=== PATIENT | female | born 1980 | race Two or more races ===

== ENCOUNTER 2020-11-21 06:54 | Emergency (ER) | payer MEDICAID, SELFPAY ==
[2020-11-21 07:01] VITALS: BP 131/81; PULSE 121; RESP 20; TEMP 36.1; O2SAT 97; BMI 37.5
[2020-11-21 08:17] VITALS: BP 106/72; PULSE 95; RESP 17; O2SAT 98
--- NOTE | 2020-11-21 08:38 | ED_ITS ---
HPI - Ear Problem General Chief complaint: Headache Stated complaint: Can't hear from left ear since Tues Time Seen by Provider: 11/21/20 08:05 Source: patient and family Mode of arrival: ambulatory Limitations: language barrier (Lebanese-speaking) History of Present Illness MD Complaint: decreased hearing Location: left ear Duration: constant Severity: severe Relieving factors: nothing Exacerbating factors: nothing Discharge from ear: no Treatment prior to arrival: attempt at ear wax removal Related Data Allergies Allergy/AdvReac Type Severity Reaction Status Date / Time No Known Allergies Allergy Verified 11/21/20 07:04 [No Known Allergies*] Review of Systems Review of Systems: Constitutional : No Fever, No Chills, No fatigue, No Malaise ENT/Mouth : Positive decreased hearing to left ear/cerumen impaction, no ear drainage, No sore throat, No runny nose Eyes: No Discharge Cardiovascular : No Chest Pain, No SOB Respiratory : No Cough, No Sputum, No Wheezing, No Smoke Exposure, No Dyspnea Gastrointestinal : No Nausea, No Vomiting, No Diarrhea Genitourinary : No irregular bleeding, No Dysuria, No Urinary Frequency, No Hematuria, No Urinary Incontinence, No Urgency, No Flank Pain, Musculoskeletal : No Myalgia Skin : No rash Neuro : No Headache Yes all other systems are reviewed and are negative REPLACED BY [facility] Past Medical History Attestation statement: The following information was validated with the patient. Social History Social History Alcohol intake: never Patient Tobacco Use Status: Current everyday Tobacco user Use of substances other than those prescribed or required for medical reasons: No Advance Directives: No Advance Directives Information Provided: No Patient : No Physical Exam Vital Signs: Vital Signs: Last Vital Signs Temp 97 F 11/21/20 07:01 Pulse 95 11/21/20 08:17 Resp 17 11/21/20 08:17 BP 106/72 11/21/20 08:17 Pulse Ox 98 11/21/20 08:17 Body Mass Index 37.5 vital signs have been reviewed as normal and appeared to be correct. Blood pressure normal. Heart rate normal. Respiration rate normal. Temperature normal. Oxygen saturation normal. Appearance: Alert. Oriented X3. No acute distress. Head: Normal external exam. Normocephalic. Atraumatic. Eyes: PERRLA. EOMI. Conjunctiva and sclera normal. Eyelids normal. ENT: To bilateral ear canals patient has moderate cerumen impaction. No tender to palpation to bilateral pinna or tragus. Pharynx normal. Uvula midline. Moist mucous membranes. Neck: Normal inspection. Neck supple. FROM. No adenopathy. No meningeal signs. No neck mass noted. CVS: Normal heart rate and rhythm. Respiratory: No respiratory distress. Painless inspiration. Back: Full range of motion noted. No rashes/lesion/induration/fluctuance or signs of infection noted. Skin: Skin warm and dry. Normal skin color. Normal skin turgor. No rashes/lesions/lacerations noted. Extremities: Extremities exhibit normal range of motion. Neuro: Oriented X 3. No motor deficit. No sensory deficit. Reflexes normal. Normal steady gait. No focal neuro deficits noted. Course Course Course Narrative: Patient is now status post bilateral cerumen impaction no complications. Moderate cerumen was removed. Patient reports her hearing is back to normal. Will DC with instructions to return if any new or worsening symptoms and to follow up with PCP. Patient understands agrees with this plan. Procedures Ear Wax Removal Both Ears: Cerumenolytic Used: other (Peroxide) Results: Re-examined: cerumen removed completely TM Examination: TM(s) intact, normal appearance Ear Canal Exam: atraumatic Patient Tolerated Procedure: well Complications: no problems Technique: ear canal irrigated [facility] - Ear Medical Records Attestation: I reviewed the patient's medical records. Discharge Plan Discharge Clinical Impression: Cerumen impaction Patient Disposition: Home, Self-Care Instructions: Carbamide Peroxide (Into the ear) Referrals: Luis Barker [Physician] - 2 days (As needed) Print Language: Lebanese
== END 2020-11-21 09:00 | disposition home or self-care (01) ==
PROVIDERS: Emergency Provider Emergency Medicine
DX: H61.23 Impacted cerumen, bilateral (principal)
CPT/HCPCS: 69209; 99283; 99284

== ENCOUNTER 2022-12-26 08:41 | Emergency (ER) | payer MEDICAID, SELFPAY ==
[2022-12-26 08:59] VITALS: BP 122/64; PULSE 101; RESP 18; TEMP 36.3; O2SAT 96; BMI 35.2
--- NOTE | 2022-12-26 09:49 | ED_ITS ---
HPI - Eye Problem General Chief complaint: Eye Problems Stated complaint: itchy swollen eyes Time Seen by Provider: 12/26/22 09:48 Source: patient and RN notes reviewed Mode of arrival: ambulatory Limitations: no limitations History of Present Illness HPI Narrative: This is a 42-year-old female presenting to the emergency department for evaluation of bump to right lower eyelid x1 year. She states that this bump has remained unchanged over the last year. She has not been seen for this lesion in the past. Patient reports that the area is itching and is bothering her. She has had no changes in her vision, fevers, chills, redness to her eye. She does not have a eye doctor. Denies any other complaints or concerns at this time. Related Data Allergies Allergy/AdvReac Type Severity Reaction Status Date / Time No Known Allergies Allergy Verified 11/21/20 07:04 [No Known Allergies*] [facility] Social History Social History Alcohol intake: never Patient Tobacco Use Status: Current everyday Tobacco user Advance Directives: No Advance Directives Information Provided: No Physical Exam Vital Signs: Vital Signs: Last Vital Signs Temp 97.4 F 12/26/22 08:59 Pulse 101 H 12/26/22 08:59 Resp 18 12/26/22 08:59 BP 122/64 12/26/22 08:59 Pulse Ox 96 12/26/22 08:59 O2 Del Method Room Air 12/26/22 08:59 BMI result Body Mass Index 35.2 General: Awake, alert, and oriented X3. No acute distress. HEENT: see below CVS: Normal heart rate and rhythm. Pulses normal. Respiratory: No respiratory distress Skin: Warm, dry, no rashes noted to exposed skin. Normal skin color. Normal skin turgor. Extremities: Normal to inspection Neuro: Oriented X 3. No motor deficit. No sensory deficit. Eyes: Other: Small, 1 mm lesion noted to the right lower eyelid, medial aspect, mildly tender to palpation. No periorbital cellulitis. No orbital bony tenderness. Conjunctivae: conjunctivae normal Sclerae: sclerae normal Pupils: Equal, round and reactive pupils present EOM: EOMs intact bilaterally Neuro: Cranial nerves: Yes Equal, round and reactive pupils present Medical Decision Making Medical Decision Making MDM Narrative: 42-year-old female presenting to the emergency department for evaluation bump to right lower eyelid x1 year. No changes, just has not been evaluated for this. On arrival, patient vital signs within normal limits, mildly tachycardic at 101bpm, patient has no chest pain or shortness of breath was asymptomatic. On examination, patient has lesion to right lower eyelid. Given patient has had no vision changes, erythema to the conjunctiva noninjected, no periorbital cellulitis noted - no further diagnostic imaging or laboratory workup needed. PERRL, and EOMI intact. Patient's symptoms consistent with lesion to right lower eyelid, given referral to eye physician for further workup and management. Patient understands and agrees with plan. Patient given return precautions if any new or worsening symptoms occur. Patient understands with treatment plan. Patient stable for discharge Differential Diagnosis Differential Diagnoses: The differential diagnosis associated with the presentation includes Hordeolum, stye, periorbital cellulitis, lesion Discharge Plan Discharge Clinical Impression: Lesion of right lower eyelid Patient Disposition: Home, Self-Care Additional Instructions: You have a skin growth on your right lower eyelid. This needs to be treated at an eye doctor. Please call Dr. Messina on Wednesday for an appointment. If any new or worsening symptoms occur including but not limited to blurred vision, redness of the eye, fevers, chills, or any other new or worsening symptoms please return for re-evaluation. Referrals: Sonu Messina [Physician] - Interventions: ED Discharge Assessment Last Done: 12/26/22 10:38 Discharge Date/Time: 12/26/22 10:38
== END 2022-12-26 10:38 | disposition home or self-care (01) ==
PROVIDERS: Emergency Provider Student in an Organized Health Care Education/Training Program
DX: H02.9 Unspecified disorder of eyelid (principal); F17.200 Nicotine dependence, unspecified, uncomplicated
CPT/HCPCS: 99282

== ENCOUNTER 2024-01-13 04:17 | Inpatient (IN) | payer MEDICAID, SELFPAY ==
[2024-01-13] VITALS (11 sets, daily range): BP systolic 96–128; BP diastolic 54–84; PULSE 95–150; RESP 11–20; TEMP 36.2–37.7; O2SAT 94–98; BMI 35.4
--- NOTE | ~2024-01-13 | MR_ITS ---
EXAMINATION: MR BRAIN WITH AND WITHOUT CONTRAST CLINICAL INFORMATION: New onset seizure COMPARISON: None. TECHNIQUE: MRI of the brain was obtained using routine sequences before and following administration of intravenous contrast. A total of 10 mL of Gadavist was administered intravenously. FINDINGS: Dedicated coronal oblique imaging through the temporal lobes are slightly motion degraded however reveal symmetric appearance of the bilateral hippocampi with normal morphology and signal intensity. No evidence of mesial temporal sclerosis. No identifiable malformation of cortical development. No acute infarct. The GRE sequence is without susceptibility artifact to suggest acute or chronic blood products. No extra-axial fluid collection. The ventricles and sulci are normal in size and configuration without significant volume loss or hydrocephalus. A few nonspecific punctate T2 FLAIR hyperintense foci within the periatrial white matter. No abnormal intraparenchymal or leptomeningeal enhancement. No significant mass effect or herniation pattern. The intracranial dural venous sinus and arterial flow voids are preserved. Partially empty sella. The orbits are grossly unremarkable. Opacified left frontal sinus containing T1 hyperintense contents presumably reflecting chronic proteinaceous/inspissated secretions. Moderate patchy mucosal disease throughout the ethmoid air cells and moderate polypoid mucosal disease in the right maxillary sinus alveolar recess. No mastoid effusion. Reduced T1 marrow signal throughout the calvarium and imaged cervical spinal column. Reduced T1 marrow signal in the left mandibular alveolus presumably reflecting reactive osteitis associated with a mandibular molar demonstrating periodontal disease. MR/MR head/brain wo/w con IMPRESSION: 1. No structural epileptogenic focus identified within limitations of a slightly motion degraded 1.5 [place] examination. No pathologic intracranial 2. enhancement. 3. Reduced T1 marrow signal throughout the calvarium and imaged cervical spinal column, nonspecific but can be seen in the setting of anemia or other marrow infiltrative process neck and be correlated with CBC. 4. Paranasal sinus disease as above including proteinaceous opacification of the left frontal sinus and moderate mucosal disease in the ethmoid air cells and right maxillary sinus alveolar recess. 5. Reduced T1 marrow signal in the left mandibular alveolus presumably reflecting reactive osteitis associated with a mandibular molar demonstrating periodontal disease.
--- NOTE | ~2024-01-13 | XR_ITS ---
EXAMINATION: XR CHEST CLINICAL INFORMATION: Seizure COMPARISON: None available. TECHNIQUE: Frontal view of the chest was obtained. FINDINGS: No focal consolidation. Slight elevation right hemidiaphragm. No pneumothorax. Trachea is midline. Cardiac mediastinal silhouette is not enlarged. No large pleural effusion. Osseous structures are intact. Soft tissues are unremarkable. XR/XR chest 1V IMPRESSION: 1. No acute cardiopulmonary process. 2. Slight elevation right hemidiaphragm.
--- NOTE | ~2024-01-13 | CT_ITS ---
EXAMINATION: CT HEAD WITHOUT CONTRAST CLINICAL INFORMATION: Headache. Seizure. COMPARISON: No relevant prior imaging. TECHNIQUE: Contiguous axial imaging was performed from the skull base to vertex without intravenous administration of contrast. This CT examination was performed using dose optimization techniques as appropriate, variously including the following: *Automated exposure control *Adjustment of mA and/or kV according to patient size (this includes techniques or standardized protocols for targeted exams where dose is matched to indication/reason for exam; i.e. extremities or head) *Use of iterative reconstruction technique DLP: 702 mGy-cm FINDINGS: There is no acute intracranial hemorrhage or abnormal extra-axial collection. No intracranial mass effect or midline shift. Lateral and third ventricles are normal. No hydrocephalus. Salter-white matter differentiation is preserved and there is no evidence of acute territorial infarct. The calvarium and skull base are intact. Mastoid air cells and middle ear cavities are well aerated. Mild to moderate paranasal sinus disease partially visualized within the ethmoid air cells and maxillary sinuses. Globes and orbits are grossly symmetric. CT/CT head/brain wo IV con IMPRESSION: Unremarkable CT scan of the head. No evidence of acute territorial infarct or hemorrhage.
[2024-01-13 04:44] LABS: Basophils Absolute Auto 0.1 X10*3/uL (0.0-0.2); Basophils Percent Auto 0.5 % (0-2); Eosinophils Absolute Auto 0.2 X10*3/uL (0.0-0.4); Eosinophils Percent Auto 1.5 % (0-4); Hemoglobin 13.7 g/dl (12.0-16.0); Imm Gran Abs Auto 0.17 X10*3/uL (0.00-0.03); Imm Gran Pct Auto 1.6 % (0.0-0.4); Lymphocytes Absolute Auto 3.7 X10*3/uL (1.2-4.9); Lymphocytes Percent Auto 34.8 % (20-40); MANUAL DIFF FLAG NO; Mean Corpuscular HGB Conc 35.1 g/dl (31.0-35.0); Mean Corpuscular Hemoglobin 31.9 pg (27.0-33.0); Mean Corpuscular Volume 90.7 fL (80.0-98.0); Mean Platelet Volume 9.1 fL (9.4-12.3); Monocytes Absolute Auto 0.6 X10*3/uL (0.1-1.2); Neutrophils Absolute Auto 5.8 x10*3/uL (2.0-8.3); Neutrophils Percent Auto 55.6 % (45-73); Platelet Count 291 X10*3/uL (160-400); Red Cell Distribution Width 12.1 % (11.0-16.0); White Blood Count 10.5 X10*3/uL (4.8-10.8)
[2024-01-13 05:00] LABS: Alanine Aminotransferase 10 U/L (0-31); Albumin Level 4.3 g/dL (3.5-5.0); Alkaline Phosphatase 67 U/L (39-117); Anion Gap 17 (12-20); Aspartate Amino Transferase 12 U/L (5-31); Bilirubin Total 0.3 mg/dL (0.0-1.0); Blood Urea Nitrogen 18 mg/dL (9-16); Calcium 8.8 mg/dL (8.4-10.2); Carbon Dioxide 19 mmol/L (22-29); Chloride 104 mmol/L (96-108); Creatinine Clr Calc Pharmacy 100.6; Estimated Glomerular Filt Rate > 60; Glucose Random 216 mg/dL (60-115); Potassium 4.5 mmol/L (3.3-5.1); Sodium 135 mmol/L (135-145); Total Protein 7.4 g/dL (6.5-8.0)
[2024-01-13 06:44] LABS: Appearance Urine Clear; Color Urine Yellow; Glucose Urine UA 500 mg/dL (Negative); Leukocyte Esterase Urine Small (1+) (Negative); Nitrite Urine Negative (Negative); PH 5.5 (5.0-9.0); UMIC TRIGGER UACC YES; Urine Blood Negative (Negative); Urine Ketones 15 mg/dL (Negative); Urine Protein Negative (Neg-Trace)
[2024-01-13 06:46] LABS: Bacteria Urine Trace (None Seen); Hyaline Casts Urine 0-2 /LPF (0-2); RBC Urine 0-2 /HPF (0-2); UACC Culture Trigger YES
--- NOTE | 2024-01-13 06:54 | ED.SEIZURE ---
HPI - Seizure General Chief Complaint: Seizure Stated Complaint: seizure? AMS Time Seen by Provider: 01/13/24 06:32 Source: patient, family, RN notes reviewed and old records reviewed Mode of arrival: EMS Limitations: language barrier History of Present Illness ED Provider: Singh Corona PA-C HPI Narrative: 44 year old female with PMH of diabetes brought in by EMS s/p witnessed ?seizure by this AM while in bed lasting about 30 seconds w/tongue biting & described post ictal state. reports patient having whole body shaking, denies head strike. Patient herself does not remember incident, however reports suspected similar instance a few months ago when was found on ground, however never sought medical care. Patient endorses left temporal headache x awhile, & headache today is similar to prior. Patient denies seizure aura or personal hx of seizures however reports mother with history of seizures. Denies taking AC. Denies CP, SOB, nausea, vomiting, diarrhea, abdominal pain, fevers, incontinence, dysuria, recent illness. Admits to drinking 2 beers a day, and will sometimes begin drinking at 10am, does report hx of withdrawal, but denies known withdrawal seizure. States has not had a drink in 2 weeks. Denies drug use besides marijuana occasionally. MD complaint: seizure and possible seizure Onset (ago): hour(s) (1) Description of Episode: loss of consciousness and tonic-clonic movement Duration of episode: 30 -: second(s) Witnessed: Yes - by Bystander () Related Data Allergies Allergy/AdvReac Type Severity Reaction Status Date / Time No Known Allergies Allergy Verified 01/13/24 04:31 [No Known Allergies*] Review of Systems Review of Systems: Constitutional: No Fever, No Chills ENT/Mouth: +tongue pain, No Ear Pain, No Nasal Congestion, No sore throat, No Rhinorrhea, No Swallowing Difficulty Cardiovascular: No Chest Pain, No SOB Respiratory: No Cough, No Sputum, No Wheezing Gastrointestinal: No Nausea, No Vomiting, No Diarrhea, No Constipation, No Abdominal pain Genitourinary: No Dysuria, No Urinary Frequency, No Hematuria, No Urinary Incontinence/retention, No Flank Pain Musculoskeletal: No joint pain, No Myalgias, No Joint Swelling Skin: No Skin Lesions, No rash Neuro: No Weakness, No Numbness, No Paresthesias, +BRANDON Yes all other systems are reviewed and are negative Constitutional: Constitutional: Reports as per HPI Neurologic: Comments: loss of consciousness during possible seizure [facility] Past Medical History Attestation statement: The following information was validated with the patient. Source: old records reviewed Social History Social History Alcohol intake: never Patient Tobacco Use Status: Current everyday Tobacco user Smoked in Last 30 Days: Yes Use of substances other than those prescribed or required for medical reasons: No Advance Directives: No Advance Directives Information Provided: Yes Do you have a plan to hurt others: No Plan Patient : No Physical Exam Vital Signs: Vital Signs: Last Vital Signs Temp 97.9 F 01/13/24 06:00 Pulse 114 H 01/13/24 06:00 Resp 14 01/13/24 06:00 BP 111/70 01/13/24 06:00 Pulse Ox 97 01/13/24 06:00 O2 Del Method Room Air 01/13/24 06:00 BMI result Body Mass Index 35.4 Const: General: cooperative, healthy appearing and no acute distress Orientation/consciousness: patient oriented x3 Limitations: no limitations HEENT: Head: Yes normal to inspection and Yes atraumatic Ears: hearing grossly normal bilaterally General nose exam: Normal external nose present Face and sinus: Yes normal facial exam Mouth: no muffled voice and tongue abnormal (+ bite daniel to right side of tongue) Throat: Yes posterior oropharynx normal and Yes tonsils normal Eyes: General: appearance normal, both eyes and all related structures Pupils: Equal, round and reactive pupils present EOM: EOMs intact bilaterally Neck: Neck: Yes normal visual inspection and Yes no meningeal signs Resp: Effort & Inspection: normal respiratory effort and no respiratory distress Auscultation: clear to auscultation bilaterally and no wheezes Cardio: Rate: regular rate Heart sounds: S1 normal heart sound present and S2 normal heart sound present Peripheral pulses: Peripheral pulses 2+ throughout GI: Inspection: Yes normal to inspection Palpation (GI): Soft to palpation, nontender, no guarding and not rigid : General: Yes no CVA tenderness Back/Spine/Pelvis: Back: no CVA tenderness Skin: Rashes: no rashes Wounds: no wounds Neuro: General: patient oriented x3, tone normal, moves all extremities, no meningeal signs and CN's II-XI intact bilaterally Cranial nerves: Yes CN's II-XII intact bilaterally, Yes Facial sensation intact/muscles of mastication intact, Yes Equal, round and reactive pupils present, Yes Midline tongue present, Yes Ability to bilaterally rotate head present and Yes Ability to bilaterally elevate shoulders present Cognition (Neuro): normal cognition Gait exam (Neuro): Normal gait present Motor exam (neuro): 5/5 motor strength present throughout, no tremor noted, Normal motor muscle tone present throughout and Motor abnormalities not present Sensory Exam: Normal double simultaneous stimulation for sensation Extrem: General: Yes normal to inspection Psych: Appearance: grossly normal Mental Status: mental status grossly normal Speech and movement: Normal speech and movement present Affect: normal affect Attitude: cooperative Thought process: Normal thought process present Thought content: Normal thought content present Insight: Good insight present (Psych) Judgement: Fair judgement present (Psych) Course Course Course Narrative: -labs reassuring -UA infected > will give p.o. Macrobid -ethanol negative 43--CT head/brain wo IV con IMPRESSION: Unremarkable CT scan of the head. No evidence of acute territorial infarct or hemorrhage. > plan is for admission Medications Administered Discontinued Medications Generic Name Dose Route Start Last Admin Trade Name Freq PRN Reason Stop Dose Admin Lorazepam 2 mg 01/13/24 07:12 01/13/24 07:28 Lorazepam 1 Mg Tablet PO 01/13/24 07:13 2 mg ONCE ONE Administration Nitrofurantoin Macrocrystals 100 mg 01/13/24 08:28 01/13/24 08:58 Nitrofurantoin Monohyd/M-Cryst 100 Mg Capsule PO 01/13/24 08:29 100 mg ONCE ONE Administration Medical Decision Making Medical Decision Making [facility] Narrative: 44 year old female with PMH of diabetes brought in by EMS s/p witnessed ?seizure by this AM while in bed lasting about 30 seconds w/tongue biting & described post ictal state. On exam tachycardic, NAD, A&O x3, back at baseline per , no evidence of trauma, bite rushing appreciated to right side of tongue. No focal neuro deficits. Concern for seizure, suspected 2nd incident vs ETOH withdrawal seizure. Rule out infectious etiology vs substance abuse. Rule out IC pathology. Low suspicion for meningitis/encephalitis Plan: EKG, labs, UA, tox screen, head CT, CXR, p.o. Ativan, re-evaluate Please refer to course for remaining medical decision making, conversation with family/patient and labs/imaging interpretation Differential Diagnosis Differential Diagnoses: The differential diagnosis associated with the presentation includes Seizure, alcohol withdrawal seizure, stroke, brain mass/tumor, hypoglycemia, Meningitis, Encephalitis Admission/Observation Consideration of admission/observation: Escalation of care including admission/observation considered Lab Data MDM Lab Attestation statement: I reviewed the patient's lab results. 01/13/24 04:39 01/13/24 04:40 Labs: Lab Results 01/13/24 01/13/24 01/13/24 Range/Units 04:39 04:40 06:35 WBC 10.5 (4.8-10.8) X10*3/uL RBC 4.30 (4.20-5.50) X10*6/uL Hgb 13.7 (12.0-16.0) g/dl Hct 39.0 (37.0-47.0) % MCV 90.7 (80.0-98.0) fL MCH 31.9 (27.0-33.0) pg MCHC 35.1 H (31.0-35.0) g/dl RDW 12.1 (11.0-16.0) % Plt Count 291 (160-400) X10*3/uL MPV 9.1 L (9.4-12.3) fL Immature Gran % (Auto) 1.6 H (0.0-0.4) % Neut % (Auto) 55.6 (45-73) % Lymph % (Auto) 34.8 (20-40) % Trigg % (Auto) 6.0 (2-11) % Eos % (Auto) 1.5 (0-4) % Baso % (Auto) 0.5 (0-2) % Lymph # (Auto) 3.7 (1.2-4.9) X10*3/uL Trigg # (Auto) 0.6 (0.1-1.2) X10*3/uL Eos # (Auto) 0.2 (0.0-0.4) X10*3/uL Baso # (Auto) 0.1 (0.0-0.2) X10*3/uL Abs Immat Gran (auto) 0.17 H (0.00-0.03) X10*3/uL Absolute Neuts (auto) 5.8 (2.0-8.3) x10*3/uL Absolute Nucleated RBC 0.000 (0.0-0.012) X10*3/uL Nucleated RBC % (auto) 0.0 (0.0-0.2) /100WBC Sodium 135 (135-145) mmol/L Potassium 4.5 (3.3-5.1) mmol/L Chloride 104 (96-108) mmol/L Carbon Dioxide 19 L (22-29) mmol/L Anion Gap 17 (12-20) BUN 18 H (9-16) mg/dL Creatinine 0.75 (0.5-1.4) mg/dL Estim Creat Clear Calc 100.6 Estimated GFR > 60 Random Glucose 216 H (60-115) mg/dL Calcium 8.8 (8.4-10.2) mg/dL Magnesium 1.8 (1.6-2.6) mg/dL Total Bilirubin 0.3 (0.0-1.0) mg/dL AST 12 (5-31) U/L ALT 10 (0-31) U/L Alkaline Phosphatase 67 (39-117) U/L Total Protein 7.4 (6.5-8.0) g/dL Albumin 4.3 (3.5-5.0) g/dL Beta HCG, Quant < 2 mIU/mL Urine Color Yellow Urine Appearance Clear Urine pH 5.5 (5.0-9.0) Ur Specific Garden 1.020 (1.005-1.025) Urine Protein Negative (Neg-Trace) mg/dL Urine Glucose (UA) 500 H (Negative) mg/dL Urine Ketones 15 (Negative) mg/dL Urine Blood Negative (Negative) Urine Nitrite Negative (Negative) Ur Leukocyte Esterase Small (1+) H (Negative) Urine RBC 0-2 (0-2) /HPF Urine WBC 11-20 H (0-5) /HPF Ur Squamous Epith Cells 3-5 (0-2) /HPF Urine Bacteria Trace (None Seen) Hyaline Casts 0-2 (0-2) /LPF Ethyl Alcohol < 10 mg/dL Independent Interpretation I performed an independent interpretation of an: EKG, Plain X-Ray and CT Scan Radiology Impression Discussion of test interpretation with radiology: I have reviewed the radiologist's reading. Independent Historian Clinical information obtained from an independent historian. History obtained from or confirmed by: Spouse and EMS External Record Review External record reviewed: Inpatient record, Office record, Outpatient record, Prior outpatient labs, Prior outpatient radiology, Primary care record and Outside ED record Tests considered The following testing was considered but not selected: As above Prescription Management I considered prescription management with: Other Chronic Conditions Patient?s care impacted by: Other Discharge Plan Discharge Clinical Impression: UTI (urinary tract infection) Patient Disposition: Still a Patient Print Language: Upper Sorbian
[2024-01-13 07:19] LABS: Ethanol < 10 mg/dL; Magnesium 1.8 mg/dL (1.6-2.6)
--- NOTE | 2024-01-13 07:22 | MHC.EDTECH ---
This tech use blankets to create padding on bedside for seizure precautions, per RN request.
[2024-01-13] MEDS: LORazepam 1 MG TABLET 2 MG PO (07:28)
[2024-01-13 07:30] LABS: HCG Quantitative < 2 mIU/mL
--- NOTE | 2024-01-13 08:27 | ECG_ITS ---
Test Reason : seizure Blood Pressure : / mmHG Vent. Rate : 122 BPM Atrial Rate : 122 BPM P-R Int : 124 ms QRS Dur : 072 ms QT Int : 296 ms P-R-T Axes : 000 170 166 degrees QTc Int : 421 ms Sinus tachycardia Right axis deviation Cannot rule out Anterior infarct , age undetermined Abnormal ECG No previous ECGs available Referred By: Tammy Corona Electronically Signed By:CECILIA MAGDALENO
--- NOTE | 2024-01-13 08:47 | ECG_ITS ---
Test Reason : repeat Blood Pressure : / mmHG Vent. Rate : 126 BPM Atrial Rate : 126 BPM P-R Int : 130 ms QRS Dur : 074 ms QT Int : 298 ms P-R-T Axes : 028 014 024 degrees QTc Int : 431 ms Sinus tachycardia Cannot rule out Anterior infarct (cited on or before 13-JAN-2024) Abnormal ECG When compared with ECG of 13-JAN-2024 08:40, QRS axis Shifted left Referred By: Tammy Corona Electronically Signed By:CECILIA MAGDALENO
[2024-01-13] MEDS: Nitrofurantoin Monohyd/M-Cryst 100 MG CAPSULE PO ×2 (08:58→20:57)
--- NOTE | 2024-01-13 10:56 | ECG_ITS ---
Test Reason : tachycardia Blood Pressure : / mmHG Vent. Rate : 130 BPM Atrial Rate : 130 BPM P-R Int : 124 ms QRS Dur : 072 ms QT Int : 292 ms P-R-T Axes : 033 013 016 degrees QTc Int : 429 ms Sinus tachycardia Cannot rule out Anterior infarct (cited on or before 13-JAN-2024) Abnormal ECG When compared with ECG of 13-JAN-2024 08:50, No significant change was found Referred By: Tammy Corona Electronically Signed By:REBECCA BARNETT
--- NOTE | 2024-01-13 10:59 | PC.NURSE ---
Provider notified of elevated HR and temp
[2024-01-13] MEDS: LORazepam 1 MG TABLET PO (11:02)
[2024-01-13 11:09] LABS: Amphetamine Screen Urine Not Detected (Not Detect); Barbiturates, Urine Not Detected (Not Detect); Benzodiazepines Screen Urine Not Detected (Not Detect); Buprenorphine Scr Not Detected (Not Detect); Cannabinoid Screen Urine POSITIVE (Not Detect); Cocaine Screen Urine Not Detected (Not Detect); Fentanyl, urine Not Detected (Not Detect); Methadone Screen, Urine Not Detected (Not Detect); Opiate Screen Urine Not Detected (Not Detect); Oxycodone Screen Urine Not Detected (Not Detect); Phencyclidine Screen Urine Not Detected (Not Detect)
--- NOTE | 2024-01-13 11:16 | PHA.MEDREC ---
Addendum entered by Ted Lam RPh 01/13/24 11:23: Reviewed by [facility] Original Note: Pharmacy Consult ? Medication Reconciliation Pharmacy has completed the medication reconciliation. Patient verified she is not taking any medications OTC or Dr. prescribed at home.
--- NOTE | 2024-01-13 11:24 | P.HPHOSP_ITS ---
History of Present Illness Date of Service: 01/13/24 Attending physician on admission: Richard Shine Chief Complaint: ?Seizure Pt is a 44-year-old female with a PMH significant for [id number] diabetes type 2?and HTN no longer on home medications though has not seen a PCP in 5+ years who presents to the ED for evaluation of witnessed seizure-like activity early this morning. Patient was reportedly sleeping in bed when noticed her whole body was shaking that lasted approximately 30 seconds. Had some blood out of mouth after a tongue bite, and also reports postictal- like state with confusion, difficulty speaking, and slowness to respond. Patient herself does not remember this incident and complains of tongue pain and frontal headache. States her eyes are ?tired? and her vision has also blurry. Reports had a similar incident 8 months ago when she was walking around her apartment and her partner later found her on the floor with a similar postictal like state and with tongue bite. Patient herself does not remember that episode either and did not seek medical attention at that time. In the ED there was concern of possible alcohol withdrawal seizure, but patient does not report consistent heavy alcohol use. Reports last drink 2 weeks ago when she had to nips. Denies history of alcohol withdrawal or alcohol withdrawal seizures. Patient denies family history of seizures, but notes her mother had 2 strokes. Reports previously diagnosed with diabetes and hypertension, but is no longer on home medications and has not seen a PCP for 5+ years. Patient denies increased anxiety, auditory or visual hallucinations. No nausea, vomiting. Denies chest pain/pressure, palpitations. No fever, chills. Denies abdominal pain. In the ED pt was tachycardic up to 127, vitals otherwise stable and WNL. Labs were significant for elevated glucose of 216, otherwise grossly unremarkable and baseline for patient. No leukocytosis. Stable H&H. No significant electrolyte abnormalities. Renal and hepatic function WNL. UA Likely negative for UTI. Tox screen positive for marijuana, otherwise negative. Ethyl alcohol levels undetectable. CXR showed no acute cardiopulmonary process. CT?of head unremarkable with no evidence of acute territorial infarct or hemorrhage. Initial EKG demonstrated sinus tachycardia without significant ST elevations or depressions with repeats x2 similar. Pt was treated with lorazepam, Macrobid and started phenobarb protocol. Pt will be admitted to the hospital for treatment and further evaluation of likely new onset seizures. Review of Systems 2 Review of Systems: New onset seizure Tongue bite Headache Blurriness of vision Denies increased anxiety No auditory, visual, or tactile disturbances Denies nausea, vomiting No fever, chills, abdominal pain Denies chest pain/pressure, palpitations No shortness a breath or difficulty breathing [facility] Medical History (Updated 01/13/24 @ 13:39 by JULISSA Chaney) Diet-controlled type 2 diabetes mellitus HTN (hypertension) Social History Alcohol intake: never Patient Tobacco Use Status: Current everyday Tobacco user Smoked in Last 30 Days: Yes Use of substances other than those prescribed or required for medical reasons: No Advance Directives: No Advance Directives Information Provided: Yes Do you have a plan to hurt others: No Plan Patient : No Meds Allergies Allergy/AdvReac Type Severity Reaction Status Date / Time No Known Allergies Allergy Verified 01/13/24 04:31 [No Known Allergies*] Active Medications: Current Medications Pharmacy Consult (Consult Rx Etoh Phenob Im/Po) 1 each MISCELLANE ONCE PRN; Protocol PRN Reason: Consult order Phenobarbital (Phenobarbital 15 Mg Tablet) 45 mg PO BID [facility], 1928[facility]1983; Protocol Stop: 01/15/24 21:01 Phenobarbital (Phenobarbital 30 Mg Tablet) 30 mg PO BID [facility]LY [facility], 1928[facility]1983; Protocol Stop: 01/17/24 21:01 Phenobarbital (Phenobarbital 30 Mg Tablet) 30 mg PO DAILY [facility], 1928[facility]1983; Protocol Stop: 01/19/24 09:01 Phenobarbital Sodium (Phenobarbital Sodium 130 Mg/Ml Im Once) 160 mg IM ONCE ONE; Protocol Stop: 01/13/24 12:01 Phenobarbital Sodium (Phenobarbital Sodium 130 Mg/Ml Vial Im Q3hx2) 120 mg IM Q3H [place]; Protocol Stop: 01/13/24 18:01 Home Medications ?Medication ?Instructions ?Recorded ?Confirmed ?Last Taken ?Type No Known Home Meds 01/13/24 01/13/24 Unknown History Physical Exam 2 Vital Signs and Narrative: Vital Signs: Last Vital Signs Temp 99.8 F 01/13/24 10:57 Pulse 127 H 01/13/24 10:57 Resp 18 01/13/24 10:57 BP 112/75 01/13/24 10:57 Pulse Ox 98 01/13/24 10:57 O2 Del Method Room Air 01/13/24 10:57 BMI result Body Mass Index 35.4 Constitutional: Alert, in no acute distress. Mental Status: Oriented to person, place and time. Eyes: Pupils are equal, round, and reactive to light. Ear, Nose, and Throat: Oropharynx clear, mucous membranes moist. Bite rsuhing on right side of tongue. Ears and nose without deformities. Trachea midline. Respiratory: Clear to auscultation bilaterally. No wheezing, rales, or rhonchi. Cardiovascular: S1, S2 regular, tachycardic. No murmurs, rubs, or gallops. Gastrointestinal: Abdomen soft, non-tender, non-distended. Normal bowel sounds. Neurologic: Right eye fails to track laterally. Moves all extremities spontaneously. Preserved sensation to light touch of face, upper and lower extremities bilaterally. Preserved and symmetric strength of upper and lower extremities bilaterally. Skin: Warm, dry. Extremities: No edema. Psychiatric: Normal mood and affect. Results Labs 01/13/24 04:39 01/13/24 04:40 Labs: Laboratory Results - last 24 hr 01/13/24 01/13/24 01/13/24 04:39 04:40 06:35 MCV 90.7 MCH 31.9 MCHC 35.1 H RDW 12.1 Plt Count 291 MPV 9.1 L Immature Gran % (Auto) 1.6 H Neut % (Auto) 55.6 Lymph % (Auto) 34.8 [place] % (Auto) 6.0 Eos % (Auto) 1.5 Baso % (Auto) 0.5 Lymph # (Auto) 3.7 [place] # (Auto) 0.6 Eos # (Auto) 0.2 Baso # (Auto) 0.1 Abs Immat Gran (auto) 0.17 H Absolute Neuts (auto) 5.8 Absolute Nucleated RBC 0.000 Nucleated RBC % (auto) 0.0 Anion Gap 17 Estim Creat Clear Calc 100.6 Estimated GFR > 60 Random Glucose 216 H Calcium 8.8 Magnesium 1.8 Total Bilirubin 0.3 AST 12 ALT 10 Alkaline Phosphatase 67 Total Protein 7.4 Albumin 4.3 Beta HCG, Quant < 2 Urine Color Yellow Urine Appearance Clear Urine pH 5.5 Ur Specific [place] 1.020 Urine Protein Negative Urine Glucose (UA) 500 H Urine Ketones 15 Urine Blood Negative Urine Nitrite Negative Ur Leukocyte Esterase Small (1+) H Urine RBC 0-2 Urine WBC 11-20 H Ur Squamous Epith Cells 3-5 Urine Bacteria Trace Hyaline Casts 0-2 Urine Opiates Screen Ur Buprenorphine Scrn Ur Oxycodone Screen Urine Methadone Screen Urine Fentanyl Screen Ur Barbiturates Screen Ur Phencyclidine Scrn Ur Amphetamines Screen U Benzodiazepines Scrn Urine Cocaine Screen U Marijuana (THC) Screen Ethyl Alcohol < 10 01/13/24 10:51 MCV MCH MCHC RDW Plt Count MPV Immature Gran % (Auto) Neut % (Auto) Lymph % (Auto) [place] % (Auto) Eos % (Auto) Baso % (Auto) Lymph # (Auto) [place] # (Auto) Eos # (Auto) Baso # (Auto) Abs Immat Gran (auto) Absolute Neuts (auto) Absolute Nucleated RBC Nucleated RBC % (auto) Anion Gap Estim Creat Clear Calc Estimated GFR Random Glucose Calcium Magnesium Total Bilirubin AST ALT Alkaline Phosphatase Total Protein Albumin Beta HCG, Quant Urine Color Urine Appearance Urine pH Ur Specific [place] Urine Protein Urine Glucose (UA) Urine Ketones Urine Blood Urine Nitrite Ur Leukocyte Esterase Urine RBC Urine WBC Ur Squamous Epith Cells Urine Bacteria Hyaline Casts Urine Opiates Screen Not Detected Ur Buprenorphine Scrn Not Detected Ur Oxycodone Screen Not Detected Urine Methadone Screen Not Detected Urine Fentanyl Screen Not Detected Ur Barbiturates Screen Not Detected Ur Phencyclidine Scrn Not Detected Ur Amphetamines Screen Not Detected U Benzodiazepines Scrn Not Detected Urine Cocaine Screen Not Detected U Marijuana (THC) Screen POSITIVE H Ethyl Alcohol Imaging Radiologist's Impressions: Impressions Head CT 01/13/24 08:00 IMPRESSION: Unremarkable CT scan of the head. No evidence of acute territorial infarct or hemorrhage. Chest X-Ray 01/13/24 08:34 IMPRESSION: 1. No acute cardiopulmonary process. 2. Slight elevation right hemidiaphragm. Assessment and Plan (1) Seizure: Status: Acute Plan Pt is a 44-year-old female with a PMH significant for [id number] diabetes type 2?and HTN no longer on home medications though has not seen a PCP in 5+ years who presents to the ED for evaluation of witnessed seizure-like activity early this morning. Pt will be admitted to the hospital for treatment and further evaluation of likely new onset seizures. Question of new onset seizures Pt with episode of witnessed whole-body shaking and postictal state One known prior episode [address] of head negative for acute territorial infarct of hemorrhage Physical exam reveals right eye not tracking laterally No electrolyte abnormalities, tox screen only positive for marijuana Will get MRI of head/brain wo/w contrast EEG Neurology consult Seizure precautions Monitor on telemetry Tachycardia Patient with elevated heart rate as high as 127 Unclear etiology, though chart review indicates similar tachycardia in 2020 Will check TSH Monitor on telemetry Alochol use In the ED there was a question of possible alcohol withdrawal and patient was started on phenobarb protocol Patient admits to only intermittent alcohol use, last drank 2 nips 2 weeks ago Will hold off on continuing phenobarb protocol at this time Monitor on CIWA Question of UTI UA positive for leukocyte esterase with wbc's 11-20, squamous epithelial cells 3-5, and trace bacteria Patient was started on Macrobid in the ED Will continue Macrobid until urine cultures finalized Fall urine culture Diet-controlled type 2 diabetes Reports no longer on prescription medications Random glucose 216 at time of presentation Will check A1c Diabetic diet Full Code Attending:?Dr. Shine DVT Prophylaxis: Lovenox Pt will require a hospitalization of at least two nights for treatment of?likely new onset seizures. Patient will require additional imaging of head and brain including MRI and EEG, close monitoring of cardiac function, and specialist consultation with Neurology. Quality Stroke Does the patient have a stroke diagnosis?: No VTE Prior VTE?: No VTE Risk Level:: Medical - moderate - high VTE Device Contraindication: Treatment Not Indicated VTE Drug Contraindication: N/A - Med Ordered
[2024-01-13] MEDS: PHENobarbitaL sodium 130 MG/ML IM ONCE 160 MG IM (12:06)
[2024-01-13 12:38] LABS: Glucose, Whole Blood 118 mg/dL (60-115)
[2024-01-13 12:43] LABS: Estimated Average Glucose 111 mg/dL; Hemoglobin A1c % 5.5 % (<6.0)
--- NOTE | 2024-01-13 13:03 | PC.NURSE ---
Observed to have elevated HR on monitor, upon entering room HR in 160`s - patient standing to use bedside commode stating she is dizzy. Returned to bed, patient states this has not happened before today. BP 123/66. Provider notified
[2024-01-13 13:09] LABS: TSH reflex Free T4 1.93 uIU/mL (0.32-4.0)
--- NOTE | 2024-01-13 13:53 | PC.NURSE ---
MRI screening form completed with patient via business analyst consultant
--- NOTE | 2024-01-13 15:30 | PC.NURSE ---
Alert and oriented, denies pain or discomfort. Remains tachy in 120's -130`s, provider aware.
[2024-01-13] MEDS: Acetaminophen 325 MG TABLET 650 MG PO (15:32)
--- NOTE | 2024-01-13 15:38 | PC.NURSE ---
With movement in bed HR 140- provider aware
--- NOTE | 2024-01-13 15:46 | P.CNNE_ITS ---
History of Present Illness Data of Consult Service Date: 01/13/24 Primary Care Provider: Unknown Physician HPI Reason for consult: Seizure 44 years old woman with diabetes came to hospital after she was found having generalized convulsion during sleep. Apparently she bit her tongue and had some blood coming out of mouth. In emergency room she was confused and did not know what had happened. When I saw her, she said that it had happened 1 time before few months ago at home and she did not seek any medical attention. Review of Systems 2 Review of Systems: No recent trauma or cold or flu-like illness PMFSH Past Medical History Medical History (Updated 01/13/24 @ 13:39 by JULISSA Chaney) Diet-controlled type 2 diabetes mellitus HTN (hypertension) Social History Social History Alcohol intake: never Patient Tobacco Use Status: Current everyday Tobacco user Smoked in Last 30 Days: Yes Use of substances other than those prescribed or required for medical reasons: No Advance Directives: No Advance Directives Information Provided: Yes Do you have a plan to hurt others: No Plan Patient : No Meds Allergies Allergy/AdvReac Type Severity Reaction Status Date / Time No Known Allergies Allergy Verified 01/13/24 04:31 [No Known Allergies*] Active Medications: Current Medications Acetaminophen (Acetaminophen 325 Mg Tablet) 650 mg PO Q6H PRN PRN Reason: Pain, Mild (Pain Scale 1-3), fever or headache Last Admin: 01/13/24 15:32 Dose: 650 mg Benzonatate (Benzonatate 100 Mg Capsule) 100 mg PO TID PRN PRN Reason: Cough Calcium Carbonate (Calcium Carbonate 750 Mg Tab.Chew) 750 mg PO Q4H PRN PRN Reason: Heartburn Enoxaparin Sodium (Enoxaparin Sodium 40 Mg/0.4 Ml Syringe) 40 mg SUBCUT Q24H [place] Last Admin: 01/13/24 13:11 Dose: Not Given Sodium Chloride (Ns) 1,000 mls @ 100 mls/hr IVCONT .Q10H [place] Magnesium Hydroxide (Milk Of Magnesia 30 Ml Oral.Susp) 30 ml PO DAILY PRN PRN Reason: Constipation Melatonin (Melatonin 3 Mg Tablet) 6 mg PO BEDTIME PRN PRN Reason: Insomnia Nitrofurantoin Macrocrystals (Nitrofurantoin Monohyd/M-Cryst 100 Mg Capsule) 100 mg PO Q12H [place] Ondansetron HCl (Ondansetron Hcl 4 Mg/2 Ml Vial) 4 mg IVPUSH Q8H PRN PRN Reason: Nausea and Vomiting Pharmacy Consult (Consult Rx Etoh Phenob Im/Po) 1 each MISCELLANE ONCE PRN; Protocol PRN Reason: Consult order Sodium Chloride (0.9 % Sodium Chloride Flush 3 Ml Syringe) 3 ml IVFLUSH QSHIFT [place] Home Medications ?Medication ?Instructions ?Recorded ?Confirmed ?Last Taken ?Type No Known Home Meds 01/13/24 01/13/24 Unknown History Physical Exam 2 Vital Signs: Vital Signs: Last Vital Signs Temp 99.9 F 01/13/24 15:30 Pulse 140 H 01/13/24 15:38 Resp 18 01/13/24 15:30 BP 106/69 01/13/24 15:30 Pulse Ox 98 01/13/24 15:30 O2 Del Method Room Air 01/13/24 12:23 BMI result Body Mass Index 35.4 Neuro: Other: She was alert and awake with normal spontaneity of speech fluency comprehension and affect. Face was symmetrical. Visual pierce are full. There was no focal weakness. Plantars are flexor. Results Labs 01/13/24 04:39 01/13/24 04:40 Labs: Short CBC 01/13/24 Range/Units 04:39 WBC 10.5 (4.8-10.8) X10*3/uL Hgb 13.7 (12.0-16.0) g/dl Hct 39.0 (37.0-47.0) % Plt Count 291 (160-400) X10*3/uL BMP 01/13/24 04:40 Sodium 135 Potassium 4.5 Chloride 104 Carbon Dioxide 19 L BUN 18 H Creatinine 0.75 Calcium 8.8 Liver Function 01/13/24 Range/Units 04:40 Total Bilirubin 0.3 (0.0-1.0) mg/dL AST 12 (5-31) U/L ALT 10 (0-31) U/L Alkaline Phosphatase 67 (39-117) U/L Albumin 4.3 (3.5-5.0) g/dL Urine 01/13/24 Range/Units 06:35 Urine Color Yellow Urine Appearance Clear Urine pH 5.5 (5.0-9.0) Ur Specific [place] 1.020 (1.005-1.025) Urine Protein Negative (Neg-Trace) mg/dL Urine Glucose (UA) 500 H (Negative) mg/dL Head CT without contrast did not reveal any significant abnormality. Couple of midline para fell sign small meningiomas were noted. Assessment and Plan (1) Seizure: Status: Acute 44 years old woman who probably had 2nd generalized convulsion. My recommendation is to obtain MRI of brain with and without contrast in an EEG. I would also start her on levetiracetam 500 mg twice a day. She should not drive and not swimming alone or sitting in a soaking tub alone or going to any said situations that could put her life in danger. Procedures Date of Service Date of Service: 01/13/24
[2024-01-13] MEDS: 0.9 % Sodium Chloride 1,000 ML 100 ML IVCONT (15:51)
[2024-01-13] MEDS: gadobutroL 10 ML VIAL IVPUSH (17:59)
[2024-01-13] MEDS: levETIRAcetam 500 MG TABLET PO (18:40)
[2024-01-13] MEDS: Melatonin 3 MG TABLET 6 MG PO (20:57)
[2024-01-13] MEDS: 0.9 % Sodium Chloride Flush 3 ML SYRINGE IVFLUSH (21:00)
--- NOTE | 2024-01-14 | EEG_ITS ---
FINDINGS: The waking background activity consists of a fairly well-defined 9 to 10 hertz posterior alpha frequency intermixed anteriorly with low voltage fast frequencies. Photic stimulation is without activation. One or two bursts of prolonged 5 to 6 hertz moderate voltage theta discharges are seen from the left upper region. Drowsiness is characterized by diffuse theta slowing. IMPRESSION: This EEG is considered mildly abnormal due to few episodes of left temporal dysrhythmia, prolonged theta discharges. This could suggest a focus of cerebral irritability of temporal region. Clinical correlation is suggested. If seizure disorder is strongly suspected, a 24-hour ambulatory EEG is recommended. MD LETHA Moncada/SEBASTIEN / [id number]
[2024-01-14 03:20] VITALS: BP 98/56; PULSE 102; RESP 20; TEMP 36.9; O2SAT 99
[2024-01-14] MEDS: 0.9 % Sodium Chloride 1,000 ML 100 ML IVCONT ×2 (03:22→11:20)
[2024-01-14 07:12] LABS: Glucose, Whole Blood 132 mg/dL (60-115)
[2024-01-14 08:00] VITALS: BP 104/55; PULSE 100; RESP 18; TEMP 37.3; O2SAT 98
[2024-01-14] MEDS: levETIRAcetam 500 MG TABLET PO (08:06)
[2024-01-14] MEDS: Nitrofurantoin Monohyd/M-Cryst 100 MG CAPSULE PO (08:06)
--- NOTE | 2024-01-14 09:10 | PM.DS ---
DS: Providers Provider Date of Service: 01/14/24 Date of admission: 01/13/24 12:23 Date of discharge: 01/14/24 Primary care physician: Unknown Physician Consults: 01/13/24 12:33 Consult to Neurology Routine Consulting Provider: [facility] Reason for consultation: ?New onset seizure DS: Diagnosis Discharge Diagnosis (1) Seizure: Status: Acute DS: Summary Hospital Course Hospital Course: from initial hpi: 44-year-old female with a PMH significant for fki-smoeepg-txxvigyth diabetes type 2?and HTN no longer on home medications though has not seen a PCP in 5+ years who presents to the ED for evaluation of witnessed seizure-like activity early this morning. Patient was reportedly sleeping in bed when noticed her whole body was shaking that lasted approximately 30 seconds. Had some blood out of mouth after a tongue bite, and also reports postictal-like state with confusion, difficulty speaking, and slowness to respond. Patient herself does not remember this incident and complains of tongue pain and frontal headache. States her eyes are ?tired? and her vision has also blurry. Reports had a similar incident 8 months ago when she was walking around her apartment and her partner later found her on the floor with a similar postictal like state and with tongue bite. Patient herself does not remember that episode either and did not seek medical attention at that time. In the ED there was concern of possible alcohol withdrawal seizure, but patient does not report consistent heavy alcohol use. Reports last drink 2 weeks ago when she had to nips. Denies history of alcohol withdrawal or alcohol withdrawal seizures. Patient denies family history of seizures, but notes her mother had 2 strokes. Reports previously diagnosed with diabetes and hypertension, but is no longer on home medications and has not seen a PCP for 5+ years. Patient denies increased anxiety, auditory or visual hallucinations. No nausea, vomiting. Denies chest pain/pressure, palpitations. No fever, chills. Denies abdominal pain. In the ED pt was tachycardic up to 127, vitals otherwise stable and WNL. Labs were significant for elevated glucose of 216, otherwise grossly unremarkable and baseline for patient. No leukocytosis. Stable H&H. No significant electrolyte abnormalities. Renal and hepatic function WNL. UA Likely negative for UTI. Tox screen positive for marijuana, otherwise negative. Ethyl alcohol levels undetectable. CXR showed no acute cardiopulmonary process. CT?of head unremarkable with no evidence of acute territorial infarct or hemorrhage. Initial EKG demonstrated sinus tachycardia without significant ST elevations or depressions with repeats x2 similar. Pt was treated with lorazepam, Macrobid and started phenobarb protocol. Pt will be admitted to the hospital for treatment and further evaluation of likely new onset seizures. hospital course: Patient was admitted for new onset seizure. She was seen by neurology recommended MRI with and without contrast which did not show focus for seizure. She was started on Keppra 500 mg b.i.d. and recommended to not drive or swim alone. EEG was done and report should be followed up outpatient. Or UTI was started on Macrobid and will continue 3 more days. For hyperglycemia, diabetes was ruled out with hemoglobin A1c of 5.5. For obesity weight loss recommended. Patient is feeling better will be discharged home. Time Attestation Discharge Coordination Time (in mins): 33 Quality: Safe Use of Opioids Does Pt have an Active Cancer Diagnosis on the Problem List?: No Quality: Stroke Does the patient have a stroke diagnosis?: No Physical Exam Vital Signs: Vital Signs: Last Vital Signs Temp 99.1 F 01/14/24 08:00 Pulse 100 01/14/24 08:00 Resp 18 01/14/24 08:00 BP 104/55 L 01/14/24 08:00 Pulse Ox 98 01/14/24 08:00 O2 Del Method Room Air 01/14/24 08:00 BMI result Body Mass Index 35.4 General: AO X 3, no acute distress Resp: CTA bilateral, no accessory muscles used CVS: S1,S2,RRR GI: soft, non tender, non distended Neuro: motor grossly intact, alert Psych: appropriate affect, appropriate insight DS: Data Data Completed and Pending Labs on day of discharge: Laboratory Results - last 24 hr 01/13/24 01/13/24 01/13/24 04:39 04:40 10:51 POC Glucose Estimat Average Glucose 111 Hemoglobin A1c % 5.5 TSH 1.93 Urine Opiates Screen Not Detected Ur Buprenorphine Scrn Not Detected Ur Oxycodone Screen Not Detected Urine Methadone Screen Not Detected Urine Fentanyl Screen Not Detected Ur Barbiturates Screen Not Detected Ur Phencyclidine Scrn Not Detected Ur Amphetamines Screen Not Detected U Benzodiazepines Scrn Not Detected Urine Cocaine Screen Not Detected U Marijuana (THC) Screen POSITIVE H 01/13/24 01/14/24 12:34 07:07 POC Glucose 118 H 132 H Estimat Average Glucose Hemoglobin A1c % TSH Urine Opiates Screen Ur Buprenorphine Scrn Ur Oxycodone Screen Urine Methadone Screen Urine Fentanyl Screen Ur Barbiturates Screen Ur Phencyclidine Scrn Ur Amphetamines Screen U Benzodiazepines Scrn Urine Cocaine Screen U Marijuana (THC) Screen Discharge Plan Discharge Anticipated Discharge Date/Time: 01/14/24 09:08 Patient Disposition: Home, Self-Care Discharge Diagnosis: seizure, uti Referrals: Chandana Golden MD [Physician] - 1 Week Physician,Unknown J [Primary Care Provider] - 1 Week Discharge Medications: New levetiracetam 500 mg Tablet 500 mg PO BID Qty: 180 0RF nitrofurantoin monohyd/m-cryst 100 mg Capsule 100 mg PO Q12H Qty: 6 0RF Diet: Advance to usual diet Activity on Discharge: no driving, no swimming alone Stand Alone Forms: Patient Portal Discharge page Print Language: Tamazight Care Plan Goals: manage seizures Health Concerns: seizures, uti Plan of Treatment: 3 more days macrobid, start keppra, follow up with neuro, no driving, no swimming alone, seizure precautions Assessment: see above
[2024-01-14 11:20] LABS: Glucose, Whole Blood 179 mg/dL (60-115)
[2024-01-14] MEDS: Enoxaparin Sodium 40 MG/0.4 ML SYRINGE SUBCUT (11:37)
[2024-01-14] MEDS: Insulin Lispro 100 UNIT/ML 3 ML VIAL SUBCUT (11:45)
[2024-01-14 12:00] VITALS: BP 117/55; PULSE 55; RESP 20; TEMP 36.3; O2SAT 95
[2024-01-14 15:59] LABS: Glucose, Whole Blood 112 mg/dL (60-115)
--- OUTSIDE RECORDS SUMMARY | 2024-01-19 06:11 | XMS_ITS | Continuity of Care Document ---
Author Organization [facility] ter Address [address] [place] [id number]- Care Team Providers Care Bag Turner Name Role Phone Not on Staff, PCP Primary Care Physician Unavail able [facility] - 06/22/[address] [address]- [facility] Attending Physician: Trevor SALEH, Sonu Payne
--- OUTSIDE RECORDS SUMMARY | 2024-01-19 06:11 | XMS_ITS | Continuity of Care Document ---
Author Organization [place] [facility] ter Address [address] [place] [id number]- Care Team Providers Care Worm Raiser Name Role Phone Not on Staff, PCP Primary Care Physician Unavail able [facility]counter [facility] Date(s): 07/10/19 - 07/10/[address] [address]- [facility] Discharge Disposition: A-D/C Home Attending Physician: Sonu Murray MD Admitting Physician: Sonu Murray MD Referring Physician: Sonu Murray MD Allergies, Adverse Reactions, Alerts Substance Reaction Severity Status NKA Active Medications Multivitamin Tablet 0 Refills, Maintenance, 07/09/19 22:34:00 EST Start Date: 07/09/19 Status: Ordered Vital Signs Most recent to oldest [Reference Range]: 1 2 3 4 Height 158 cm (07/10/19 10:13 AM) 158 cm (07/10/19 1:23 AM) Weight 81.81 kg (07/10/19 1:23 AM) Oxygen Saturation [94-100 %] 98 % (07/10/19 1:01 AM) 99 % (07/09/19 10:38 PM) Pulse Rate [55-90 bpm] 95 bpm *H* (07/10/19 1:23 AM) Body Mass Index [18.5-24.99] 32.77 *>HHI* (07/10/19 1:23 AM) Blood Pressure [90-138/55-84 mm Hg] 110/54mm Hg (07/10/19 1:10 PM) 112/59mm Hg (07/10/19 11:17 AM) 111/53mm Hg (07/10/19 9:07 AM) Respiratory Rate [16-30 br/min] 17 br/min (07/10/19 1:10 PM) 18 br/min (07/10/19 11:17 AM) 17 br/min (07/10/19 10:13 AM) 17 br/min (07/10/19 10:13 AM) Temperature [96.8-100.4 DegF] 98.4 DegF (07/10/19 1:10 PM) 98.6 DegF (07/10/19 11:17 AM) 98.6 DegF (07/10/19 9:07 AM) Mode of Delivery (Oxygen) Room air (07/10/19 1:01 AM) Room air (07/09/19 10:38 PM) Blood pressure sites Arm, left (07/10/19 7:30 AM) Arm, right (07/10/19 1:23 AM) Arm, right (07/10/19 1:01 AM) Temperature Route Oral (07/10/19 1:10 PM) Oral (07/10/19 11:17 AM) Oral (07/10/19 9:07 AM) Dry Weight 81.81 kg (07/10/19 1:23 AM) Sensory deficits None (07/10/19 1:23 AM) Mobility assistance Independent (07/10/19 1:23 AM)
--- OUTSIDE RECORDS SUMMARY | 2024-01-19 06:11 | XMS_ITS | Continuity of Care Document ---
Author Organization [facility] ter Address [address] [place] [phone]- Care Team Providers Care On Site Nurse Name Role Phone Not on Staff, PCP Primary Care Physician Unavail able [facility]s): 06/[facility]/19 - 06/22/[address] [address]- [facility] Attending Physician: Trevor SALEH, Sonu Payne
--- OUTSIDE RECORDS SUMMARY | 2024-01-19 06:11 | XMS_ITS | Continuity of Care Document ---
Author Organization [facility] Address [address] [place] [address]- Care Team Providers Care Director Of Curriculum And Instruction Name Role Phone Not on Staff, PCP Primary Care Physician Unavail able [facility]counter [facility] Date(s): 06/26/19 - 08/11/19 [facility] [address] [place] [address]- [facility] Attending Physician: Not on Staff, Attending MD Referring Physician: Flory Benavidez CNM, I Allergies, Adverse Reactions, Alerts Substance Reaction Severity Status NKA Active Medications Multivitamin Tablet 0 Refills, Maintenance, 07/09/19 22:34:00 EST Start Date: 07/09/19 Status: Ordered
--- OUTSIDE RECORDS SUMMARY | 2024-01-19 06:11 | XMS_ITS | Continuity of Care Document ---
Author Organization [facility] ter Address [address] [place] [address]- Care Team Providers Care Cover Mat Machine Operator Name Role Phone Not on Staff, PCP Primary Care Physician Unavail able [facility] Date(s): 01/12/20 - 01/12/[address] [address]- [facility] Discharge Disposition: A-D/C Home Attending Physician: Sarah Martel MD Admitting Physician: Sarah Martel MD Referring Physician: Sarah Martel MD Allergies, Adverse Reactions, Alerts Substance Reaction Severity Status NKA Active Medications Multivitamin Tablet 0 Refills, Maintenance, 07/09/19 22:34:00 EST Start Date: 07/09/19 Status: Ordered Vital Signs Most recent to oldest [Reference Range]: 1 Weight 86 kg (01/12/20 10:09 AM) Oxygen Saturation [94-100 %] 100 % (01/12/20 10:09 AM) Pulse Rate [55-90 bpm] 90 bpm (01/12/20 10:09 AM) Blood Pressure [90-138/55-84 mm Hg] 116/ 72mm Hg (01/12/20 10:09 AM) Respiratory Rate [16-30 br/min] 18 br/mi n (01/12/20 10:09 AM) Temperature [96.8-100.4 DegF] 98.8 DegF (01/12/20 10:09 AM) Mode of Delivery (Oxygen) Room air (01/12/20 10:09 AM) Blood pressure sites Arm, right 1 (01/12/20 10:09 AM) Temperature Route Oral (01/12/20 10:09 AM) Weight Obtained Via Standing scale (01/12/20 10:09 AM) 1Result Comment: right upper arm measured 36 cm Social History Social History Type Response Smoking Status Former smoker, quit more than 30 days ago entered on: 01/12/20 Sex
--- OUTSIDE RECORDS SUMMARY | 2024-01-19 06:11 | XMS_ITS | Continuity of Care Document ---
Author Organization [facility] Address [address] [place] [address]- Care Team Providers Care Hand Printed Circuit Board Assembler Name Role Phone Not on Staff, PCP Primary Care Physician Unavail able [facility] Date[facility]s): 07/12/19 - 07/22/19 [facility] [address] [place] [address]- [facility] Attending Physician: Hong Lea Admitting Physician: Hong Lea Referring Physician: AdmtrHong Allergies, Adverse Reactions, Alerts Substance Reaction Severity Status NKA Active Medications Multivitamin Tablet 0 Refills, Maintenance, 07/09/19 22:34:00 EST Start Date: 07/09/19 Status: Ordered
--- OUTSIDE RECORDS SUMMARY | 2024-01-19 06:11 | XMS_ITS | Continuity of Care Document ---
Author Organization [facility] Address [address] [place] [address]- Care Team Providers Care Lead Relay Tester Name Role Phone Not on Staff, PCP Primary Care Physician Unavail able [facility]counter [facility] Date(s): 01/05/20 - 02/04/20 [facility] [address] [place] [address]- [facility] Allergies, Adverse Reactions, Alerts Substance Reaction Severity Status NKA Active Medications Multivitamin Tablet 0 Refills, Maintenance, 07/09/19 22:34:00 EST Start Date: 07/09/19 Status: Ordered Social History Social History Type Response Smoking Status Former smoker, quit more than 30 days ago entered on: 01/12/20 Sex
--- OUTSIDE RECORDS SUMMARY | 2024-01-19 06:11 | XMS_ITS | Continuity of Care Document ---
Author Organization [facility] ter Address [address] [place] [address]- Care Team Providers Care Well Driller Name Role Phone Not on Staff, PCP Primary Care Physician Unavail able [facility]counter [facility] Date(s): 06/19/19 - 06/26/[address] [address]- [facility] Attending Physician: Anne Roldan DO Allergies, Adverse Reactions, Alerts Substance Reaction Severity Status NKA Active Results Microbiology Reports TEST:Urine Culture STATUS:Auth (Verified) BODY SITE: SOURCE:CLEAN COLLECTED DATE/TIME:06/19/19 4:47 PM Urine Culture SPECIMEN DESCRIPTION : CLEAN CATCH (URINE) SPECIAL REQUESTS : NONE CULTURE : Mixed bacterial sohan, indicative of urogenital contamination. REPORT STATUS : FINAL 06/20/2019
== END 2024-01-14 16:06 | disposition home or self-care (01) | DRG 101 ==
LOC: HO.ED 09:49 → HO.EDOVER 12:37 → HO.IMC 16:52
PROVIDERS: Physician Assistant; Admitting Provider Student in an Organized Health Care Education/Training Program; Emergency Provider Emergency Medicine; Visit Provider Internal Medicine
DX: R56.9 Unspecified convulsions (principal); N39.0 Urinary tract infection, site not specified; F17.210 Nicotine dependence, cigarettes, uncomplicated; Z71.6 Tobacco abuse counseling; R73.9 Hyperglycemia, unspecified; E66.9 Obesity, unspecified; Z68.35 Body mass index [BMI] 35.0-35.9, adult
CPT/HCPCS: 36415; 70450; 70553; 71045; 80053; 80307; 81001; 82947; 83036; 83735; 84443; 84702; 85025; 87086; 93005; 95816; 99285; A9585; J1650; J2560

== ENCOUNTER → 2024-01-13 10:56 | Outpatient (BNV) | payer SELFPAY | PROVIDERS: Admitting Provider Student in an Organized Health Care Education/Training Program; Emergency Provider Emergency Medicine; Visit Provider Internal Medicine | DX: R94.31 Abnormal electrocardiogram [ECG] [EKG] (principal) | CPT/HCPCS: 93010 ==

== ENCOUNTER → 2024-01-13 12:23 | Outpatient (BNV) | payer MEDICAID, SELFPAY | PROVIDERS: Admitting Provider Student in an Organized Health Care Education/Training Program; Emergency Provider Emergency Medicine; Visit Provider Student in an Organized Health Care Education/Training Program | DX: R56.9 Unspecified convulsions (principal) | CPT/HCPCS: 99223; 99239 ==

== ENCOUNTER → 2024-01-13 12:23 | Outpatient (BNV) | payer MEDICAID, SELFPAY | PROVIDERS: Admitting Provider Student in an Organized Health Care Education/Training Program; Emergency Provider Emergency Medicine; Visit Provider Psychiatry & Neurology Neurology | DX: R56.9 Unspecified convulsions (principal) | CPT/HCPCS: 99222 ==

== ENCOUNTER 2024-06-05 09:45 | Emergency (ER) | payer MEDICAID, SELFPAY ==
[2024-06-05 09:47] VITALS: BP 133/80; PULSE 116; RESP 20; TEMP 36.3; O2SAT 97; BMI 33.7
--- NOTE | 2024-06-05 10:45 | ED.GENADULT ---
HPI - General Adult General Chief complaint: Ear Problems Stated complaint: Wants her ears cleaned out Time Seen by Provider: 06/05/24 10:45 Source: patient Mode of arrival: ambulatory Limitations: no limitations History of Present Illness ED Provider: Shaunna Sesay PA-C HPI narrative: Patient is a 44 year old assigned female at with a history of seizures presenting to the emergency department today with bilateral clogged ears. Patient states that both of her ears have been hard to hear out of because of wax. Patient states that she would like them to be flushed. Patient denies any dizziness, lightheadedness, abdominal pain, nausea, vomiting, fever, chills, blurry vision, double vision, loss of vision, chest pain, difficulty breathing, shortness of breath, back pain, night sweats, pain with urination, increased urinary frequency, increased urinary urgency, blood in her urine or stool, syncope or a near syncopal episode, recent trauma or falls, bowel incontinence, bladder incontinence, or any other complaints at this time. Onset (ago): month(s) Relieving factors: none Exacerbating factors: none Associated symptoms: denies other symptoms Treatments prior to arrival: none Related Data Previous Rx's ?Medication ?Instructions ?Recorded levetiracetam 500 mg tablet 500 mg PO BID #180 tabs 01/14/24 nitrofurantoin 100 mg PO Q12H #6 caps 01/14/24 monohydrate/macrocrystals 100 mg capsule Allergies Allergy/AdvReac Type Severity Reaction Status Date / Time No Known Allergies Allergy Verified 06/05/24 09:48 [No Known Allergies*] Review of Systems Constitutional: Constitutional: Reports no additional constitutional complaints, Denies chills, Denies fever(s) and Denies night sweats Eyes: Eyes: Reports no additional eye complaints, Denies blurry vision, Denies change in vision, Denies diplopia, Denies eye discharge, Denies loss of vision and Denies eye pain ENT: Denies dizziness and Reports hearing loss (secondary to cerumen) Cardiovascular: Cardiovascular: Reports no additional cardiovascular complaints, Denies chest pain, Denies lightheadedness, Denies Loss of Consciousness and Denies dyspnea Respiratory: Respiratory: Reports no additional respiratory complaints and Denies dyspnea Gastrointestinal: Gastrointestinal: Reports no additional gastrointestinal complaints, Denies abdominal pain, Denies melena, Denies hematochezia, Denies change in bowel habits and Denies change in stool character Genitourinary: Genitourinary: Denies hematuria, Denies urinary frequency, Denies dysuria, Denies urinary incontinence, Denies urinary hesitancy and Denies urinary urgency Musculoskeletal: Musculoskeletal: Reports no additional musculoskeletal complaints, Denies numbness and Denies tingling Neurologic: Denies dizziness, Denies loss of vision, Denies numbness and Denies tingling Psychiatric: Psychiatric: Reports no additional psychiatric complaints Endocrine: Endocrine: Reports no additional endocrine complaints Hematologic/Lymphatic: Hematologic/Lymphatic: Reports no additional hematologic/lymphatic complaints Allergic/Immunologic: Allergic/Immunologic: Reports no additional allergic/immunologic complaints [facility] Past Medical History Attestation statement: The following information was validated with the patient. Source: old records reviewed and nursing notes reviewed Medical History Diet-controlled type 2 diabetes mellitus HTN (hypertension) Social History Social History Household Members: Family Housing: House Alcohol intake: never Patient Tobacco Use Status: Current someday Tobacco user Tobacco use type: Cigarette Substance Use Type: Marijuana Advance Directives: No Advance Directives Information Provided: Yes Physical Exam ED Vital Signs: Vital Signs - 24 hr 06/05/24 09:47 06/05/24 13:57 Temperature 97.4 F 97.4 F Pulse Rate 116 H 116 H Respiratory Rate 20 20 Blood Pressure 133/80 133/80 Pulse Oximetry 97 97 Oxygen Delivery Method Room Air Room Air BMI result Body Mass Index 33.7 Const General: cooperative, no acute distress, alert and awake Nutritional Appearance: well nourished Orientation/consciousness: patient oriented x3 Limitations: no limitations HENCO Head: Yes normal to inspection and Yes atraumatic Ears: hearing grossly normal bilaterally, external ears normal and Abnormal EAC present excessive cerumen bilateral General nose exam: Normal external nose present, no nasal discharge noted and no epistaxis Face and sinus: Yes normal facial exam, No abrasion and No laceration Mouth: Normal oral and palatal mucosa present, no drooling and no muffled voice Eyes General: appearance normal, both eyes and all related structures Periorbital: periorbital findings normal Eyelids: Yes eyelids normal Conjunctivae: conjunctivae normal Pupils: Equal, round and reactive pupils present EOM: EOMs intact bilaterally Neck Neck: Yes normal visual inspection, Yes full ROM and Yes no lymphadenopathy Chest Chest palpation & inspection: normal inspection of the chest Resp Effort & Inspection: normal respiratory effort and able to speak in complete sentences GI Inspection: Yes normal to inspection Neuro General: patient oriented x3 and moves all extremities Cranial nerves: Yes Equal, round and reactive pupils present Cognition (Neuro): normal cognition Extrem General: Yes normal to inspection, Yes full ROM and Yes capillary refill normal Psych Appearance: grossly normal Mental Status: mental status grossly normal Affect: normal affect Attitude: cooperative Thought process: Normal thought process present Thought content: Normal thought content present Insight: Good insight present (Psych) Procedures Ear Wax Removal Both Ears: Results: Re-examined: some cerumen remains TM Examination: TM(s) intact, normal appearance Ear Canal Exam: atraumatic Patient Tolerated Procedure: well Complications: no problems Technique: ear canal irrigated and ear canal curetted Medical Decision Making Medical Decision Making MDM Narrative: Patient is a 44 year old assigned female at with a history of seizures presenting to the emergency department today with bilateral clogged ears. Patient's physical exam showed excessive cerumen which I cleared using the [employer] and irrigation, without incident. Patient's TMs were intact and appropriate appearing, bilaterally. I explained my physical exam findings to the patient. I answered all questions asked by the patient. I stressed the importance of the patient taking her medication as directed (either prescribed or as the over the counter packaging recommends). I stressed the importance of the patient following up with her primary care provider. I stressed the importance of the patient returning to the emergency department immediately if her symptoms were to worsen or if she were to develop any dizziness, shortness of breath, difficulty breathing, chest pain, blurry vision, loss of vision, nausea, vomiting, abdominal pain, fever, chills, back pain, or any other complaints. Patient verbalized agreement and understanding with this treatment plan and discharge. Differential Diagnosis Differential Diagnoses: The differential diagnosis associated with the presentation includes Cerumen impaction Excessive cerumen Admission/Observation Consideration of admission/observation: Escalation of care including admission/observation considered Patient would have been admitted to the hospital had her clinical presentation warranted hospital admission. Discharge Plan Discharge Clinical Impression: Cerumen impaction Patient Disposition: Home, Self-Care Additional Instructions: Follow up with your primary care provider. Return to the emergency department immediately if your symptoms worsen or if you develop any dizziness, shortness of breath, difficulty breathing, chest pain, blurry vision, loss of vision, nausea, vomiting, abdominal pain, fever, chills, back pain, or any other complaints. Prescriptions: No Action levetiracetam 500 mg Tablet 500 mg PO BID Qty: 180 0RF nitrofurantoin monohyd/m-cryst 100 mg Capsule 100 mg PO Q12H Qty: 6 0RF Referrals: [facility] Family Medicine [Provider Group] (Call to establish and follow up with a primary care provider. If you already have a primary care provider, please follow up with them.) [facility] Primary Care, Saige [Provider Group] (Call to establish and follow up with a primary care provider. If you already have a primary care provider, please follow up with them.) [facility] Primary Care,Brian [Provider Group] (Call to establish and follow up with a primary care provider. If you already have a primary care provider, please follow up with them.) Interventions: ED Discharge Assessment Last Done: 06/05/24 13:57 Discharge Date/Time: 06/05/24 13:58 Print Language: Rwandan
[2024-06-05 13:57] VITALS: BP 133/80; PULSE 116; RESP 20; TEMP 36.3; O2SAT 97
== END 2024-06-05 13:58 | disposition home or self-care (01) ==
PROVIDERS: Emergency Provider Emergency Medicine Emergency Medical Services
DX: H61.23 Impacted cerumen, bilateral (principal); E11.9 Type 2 diabetes mellitus without complications; I10 Essential (primary) hypertension; F17.210 Nicotine dependence, cigarettes, uncomplicated; F12.90 Cannabis use, unspecified, uncomplicated
CPT/HCPCS: 69210; 99282; 99283

== ENCOUNTER 2024-06-17 08:41 | Emergency (ER) | payer MEDICAID, SELFPAY ==
--- NOTE | ~2024-06-17 | XR_ITS ---
CLINICAL HISTORY: cough congestion 2 view chest x-ray Comparison: CR/SR - XR CHEST 1V - 01/13/24 08:24 EDT Findings: Lungs are well inflated. Cardiac silhouette is within normal limits. No focal areas of consolidation. No pleural effusion or pneumothorax. IMPRESSION: 1. No acute findings. This document has been electronically signed by: Levar Valladares MD on 06/17/2024 09:22:27
[2024-06-17 08:50] VITALS: BP 144/75; PULSE 103; RESP 19; TEMP 36.6; O2SAT 96; BMI 33.7
[2024-06-17 09:41] LABS: Influenza A PCR NEGATIVE (Negative); Influenza B PCR NEGATIVE (Negative); Resp Syncy Virus RNA Qual PCR NEGATIVE (Negative); SARS COV2 PCR INHOUSE NEGATIVE (Negative)
--- NOTE | 2024-06-17 09:46 | ED_ITS ---
HPI - URI/Sore Throat General Chief Complaint: Upper Respiratory Symptoms Stated Complaint: sore throat Time Seen by Provider: 06/17/24 09:09 Source: patient Mode of arrival: ambulatory Limitations: no limitations History of Present Illness ED Provider: Bridgett Interiano NP HPI Narrative: Patient is a 44-year-old female who presents emergency department for evaluation of a nonproductive cough, nasal congestion and anterior chest discomfort during episodes of coughing. Symptom onset 5 days ago. Denies any known sick contacts. Denies fevers, chills, headache, dizziness, neck pain, neck stiffness, shortness of breath, difficulty breathing, sore throat, nausea, vomiting, abdominal pain, numbness or tingling of the extremities, genitourinary symptoms. Related Data Previous Rx's ?Medication ?Instructions ?Recorded levetiracetam 500 mg tablet 500 mg PO BID #180 tabs 01/14/24 nitrofurantoin 100 mg PO Q12H #6 caps 01/14/24 monohydrate/macrocrystals 100 mg capsule guaifenesin 200 mg/5 mL oral liquid 200 mg (5 mL) PO Q4H PRN cough 06/17/24 #118 mL Allergies Allergy/AdvReac Type Severity Reaction Status Date / Time No Known Allergies Allergy Verified 06/17/24 08:51 [No Known Allergies*] Review of Systems Review of Systems: Yes all other systems are reviewed and are negative PMFSH Past Medical History Attestation statement: The following information was validated with the patient. Source: old records reviewed Medical History Diet-controlled type 2 diabetes mellitus HTN (hypertension) Social History Social History Household Members: Family Housing: House Alcohol intake: never Patient Tobacco Use Status: Current someday Tobacco user Tobacco use type: Cigarette Substance Use Type: Marijuana Advance Directives: No Advance Directives Information Provided: No Do you have a plan to hurt others: No Plan Physical Exam Vital Signs: Vital Signs: Last Vital Signs Temp 98 F 06/17/24 08:50 Pulse 103 H 06/17/24 08:50 Resp 19 06/17/24 08:50 BP 144/75 H 06/17/24 08:50 Pulse Ox 96 06/17/24 08:50 O2 Del Method Room Air 06/17/24 08:50 BMI result Body Mass Index 33.7 Appearance: Alert.?Oriented to person, place and time. No acute distress.?Normal affect. Eyes: Pupils equal, round and reactive to light.? ENT: TM normal bilaterally. Pharynx normal.?? Neck: Normal inspection.? Neck supple.??No cervical adenopathy CVS: Heart sounds normal. Normal heart rate and rhythm.? Pulses normal.?? Respiratory: No respiratory distress.? Lung sounds clear to auscultation bilaterally?? Abdomen: Soft and non-tender. Normoactive bowel sounds. Skin: Skin warm and dry.? Normal skin color.? ? Extremities: No lower extremity edema.? Neuro: Moves all extremities spontaneously. Sensation intact bilaterally. No motor deficits. Ambulates with normal steady gait. Medical Decision Making Medical Decision Making MDM Narrative: Patient is a 44-year-old female with past medical history of type 2 diabetes and hypertension, presenting for evaluation of respiratory symptoms. COVID- 19/influenza/RSV testing negative. Chest x-ray is without consolidation or infiltrate to suggest pneumonia. At this time history and physical exam not consistent with ACS/PE. Well-appearing, nontoxic, afebrile, no tachypnea/hypoxia. Speaking clear full sentences, ambulatory with steady gait. Discussed conservative treatment including rest, hydration, Tylenol/ibuprofen as needed for fever and body aches, saline nasal spray, humidifier, asqb-vbb-tflntpp cold medication. Advised to follow-up with primary care provider as needed, discussed reasons to return back to the emergency department. All questions were answered. Patient discharged home in stable condition. Differential Diagnosis Differential Diagnoses: The differential diagnosis associated with the presentation includes ( See narrative above) Admission/Observation Consideration of admission/observation: Escalation of care including admission/observation considered ( see narrative above) Lab Data [facility] Lab Attestation statement: I reviewed the patient's lab results. ( see narrative above) Labs: Lab Results 06/17/24 Range/Units 08:57 Influenza Type A (PCR) NEGATIVE (Negative) Influenza Type B (PCR) NEGATIVE (Negative) RSV RNA Qual (PCR) NEGATIVE (Negative) SARS-CoV-2 RNA (RT-PCR) NEGATIVE (Negative) Independent Interpretation I performed an independent interpretation of an: Plain X-Ray (See narrative above) Radiology Impression Discussion of test interpretation with radiology: I have reviewed the radiologist's reading. Radiologist Impression: 2 view chest x-ray Comparison: CR/SR - XR CHEST 1V - 01/13/24 08:24 EDT Findings: Lungs are well inflated. Cardiac silhouette is within normal limits. No focal areas of consolidation. No pleural effusion or pneumothorax. IMPRESSION: 1. No acute findings. Prescription Management I considered prescription management with: Pain Medication ( acetaminophen/ibuprofen) Discharge Plan Discharge Clinical Impression: Upper respiratory infection Patient Disposition: Home, Self-Care Instructions: Upper Respiratory Infection (ED) Additional Instructions: Be sure to rest, stay well hydrated drinking plenty of fluids, eat small frequent meals. Tylenol/ibuprofen can be used as needed for fever/pain. O mnl-nhp-slayufk cold medications may be helpful as well for symptoms. Saline nasal spray, humidifier may be helpful for nasal congestion. You may return to the emergency department with any new or worsening symptoms or concerns. Follow-up with your primary care provider as needed. Prescriptions: New guaifenesin 200 mg/5 mL liquid 200 mg PO Q4H PRN (Reason: cough) Qty: 118 0RF No Action levetiracetam 500 mg Tablet 500 mg PO BID Qty: 180 0RF nitrofurantoin monohyd/m-cryst 100 mg Capsule 100 mg PO Q12H Qty: 6 0RF Referrals: Physician,Unknown J [Primary Care Provider] - Print Language: Hebrew
[2024-06-17 09:49] VITALS: BP 99/72; PULSE 109; RESP 18; TEMP 36.8; O2SAT 98
[2024-06-17 10:08] VITALS: BP 99/72; PULSE 109; RESP 18; TEMP 36.8; O2SAT 98
== END 2024-06-17 10:08 | disposition home or self-care (01) ==
PROVIDERS: Emergency Provider Emergency Medicine
DX: J06.9 Acute upper respiratory infection, unspecified (principal); J02.9 Acute pharyngitis, unspecified; R05.9 Cough, unspecified; Z03.818 Encounter for observation for suspected exposure to other biological agents ruled out
CPT/HCPCS: 0241U; 71046; 99283

== ENCOUNTER → 2024-06-17 08:53 | Outpatient (BNV) | payer MEDICAID, SELFPAY | PROVIDERS: Emergency Provider Emergency Medicine; Visit Provider Radiology Diagnostic Radiology | DX: R05.9 Cough, unspecified (principal) | CPT/HCPCS: 71046 ==

== ENCOUNTER 2024-08-03 11:36 | Outpatient (REF) | payer MEDICAID, SELFPAY ==
[2024-08-03 13:32] LABS: MANUAL DIFF FLAG NO
[2024-08-03 13:38] LABS: Basophils Absolute Auto 0.1 X10*3/uL (0.0-0.2); Basophils Percent Auto 0.6 % (0-2); Eosinophils Absolute Auto 0.1 X10*3/uL (0.0-0.4); Eosinophils Percent Auto 0.8 % (0-4); Hematocrit 38.7 % (37.0-47.0); Hemoglobin 13.1 g/dl (12.0-16.0); Imm Gran Abs Auto 0.13 X10*3/uL (0.00-0.03); Imm Gran Pct Auto 1.3 % (0.0-0.4); Lymphocytes Absolute Auto 3.1 X10*3/uL (1.2-4.9); Lymphocytes Percent Auto 31.2 % (20-40); Mean Corpuscular HGB Conc 33.9 g/dl (31.0-35.0); Mean Corpuscular Hemoglobin 30.9 pg (27.0-33.0); Mean Corpuscular Volume 91.3 fL (80.0-98.0); Mean Platelet Volume 9.3 fL (9.4-12.3); Monocytes Absolute Auto 0.7 X10*3/uL (0.1-1.2); Monocytes Percent Auto 6.8 % (2-11); Neutrophils Absolute Auto 5.9 x10*3/uL (2.0-8.3); Neutrophils Percent Auto 59.3 % (45-73); Platelet Count 352 X10*3/uL (160-400); Red Blood Count 4.24 X10*6/uL (4.20-5.50); White Blood Count 9.9 X10*3/uL (4.8-10.8)
[2024-08-03 14:07] LABS: Alanine Aminotransferase 18 U/L (0-31); Albumin Level 4.4 g/dL (3.5-5.0); Alkaline Phosphatase 78 U/L (39-117); Anion Gap 12 (12-20); Aspartate Amino Transferase 18 U/L (5-31); Bilirubin Total 0.2 mg/dL (0.0-1.0); Blood Urea Nitrogen 17 mg/dL (9-16); Calcium 9.7 mg/dL (8.4-10.2); Carbon Dioxide 22 mmol/L (22-29); Chloride 106 mmol/L (96-108); Cholesterol 178 mg/dL (<200); Estimated Glomerular Filt Rate > 60; Glucose Random 135 mg/dL (60-115); HDL Cholesterol 42 mg/dL (>40); LDL Cholesterol Calculated 77 mg/dL (<100); Potassium 4.4 mmol/L (3.3-5.1); Sodium 136 mmol/L (135-145); Total Protein 8.4 g/dL (6.5-8.0); Triglycerides 299 mg/dL (<150)
--- OUTSIDE RECORDS SUMMARY | 2024-08-03 14:16 | XMS_ITS | Clinical Summary ---
Author Organization [employer] Address [address] [facility] [address] [place] [address] Care Team Providers Care Port Patrol Officer Name Role Phone Name, Alex SALEH Primary Care Provider [phone] Allergies No known active allergies Medications Banophen 25 MG capsuleIndicati ons:Insomnia, unspecified type TOME 1 CAPSULA POR VIA ORAL AL ACOSTARSE CUANDO SEA NECESARIO 30 capsule 2 07/27/19 23 Active levETIRAcetam (Keppra) 500 MG tabletIndicatio ns:Seizure disorder (CMS/HCC) Take 1 tablet (500 mg) by mouth 2 times daily. 60 tablet 11 08/04/19 25 025 Active melatonin 5 MG tablet Take 1 tablet (5 mg) by mouth if needed at bedtime (insomnia). 30 tablet 11 08/04/19 25 026 Active levETIRAcetam (Keppra) 500 MG tablet TOME 1 TABLETA POR V A ORAL DOS VECES AL D A 01/14/20 24 025 Discontinued(Re order (will not trigger notification to Pharmacy)) Active Problems Problem Noted Date Diagnosed Date Light cigarette smoker (1-9 cigs/day) 08/03/2024 Knee pain 08/03/2024 Class 1 obesity 08/03/2024 Amblyopia 08/03/2024 Seizure disorder 08/03/2024 Prediabetes 02/09/2021 Encounters Date Type Department Care Team Description 08/03/2024 10:45 AM EST Office Visit [facility] [address] [place] [address] Name, MD Alex Seizure disorder (CMS/HCC) (Primary Dx); Prediabetes; Chronic insomnia; Menorrhagia with regular cycle; Depression with anxiety; Encounter for screening mammogram for malignant neoplasm of breast 08/03/2024 Travel 07/27/2024 Patient Outreach [facility] [address] [place] [address] Alex Davila MD Pre-visit Planning (SDOH negative, Tobacco screening negative. ) 05/26/2024 Telephone [facility] [address] [place] [address] Alex Davila MD New pt appt from Last 3 Months Immunizations Name Administration Dates Next Due Influenza injectable quadrivalent preservative f ree 05/12/2021 Influenza, seasonal, injectable, preservative fr ee 08/03/2024 TD (adult), 2 Lf tetanus tox oid, preservative free, adsorbed 12/27/2018 Tdap 08/03/2024 Family History Medical History Relation Name Comments Diabetes Mother Seizures Mother Relation Name Status Comments Mother Social History Tobacco Use Types Packs/Day Years Used Date Smoking Tobacco: Some Days Cigarettes Passive Smoke Exposure: Current Tobacco Cessation:Ready to Q uit: Not Asked Alcohol Use Standard Drinks/Week Comments Yes 0 (1 standard drink = 0.6 oz pur e alcohol) 2 cans of beer per week Depression Answer Date Recorded Patient Health Questionnaire-9 Score 6 08/03/2024 Patient Health Questionnaire-9 Score 6 08/03/2024 Last PHQ-9: Questionnaire Data Not on file 0 08/03/2024 Housing Stability Answer Date Recorded What is your housing situation today? I have kvng richards 07/27/[address] you li ve. Do you have problems with any of the following? None of the above 07/27/2024 Food Insecurity Answer Date Recorded Within the past 12 months, y ou worried that your food would run out before you got money to buy more: Never True 07/27/2024 Within the past 12 months,th e food you bought just didn't last and you didn't have enough money to get more: Never True Transportation Answer Date Recorded In the past 12 months, has l ack of transportation kept you from medical appts, meetings, work or from getting things needed for daily living? No 07/27/2024 Utilities Answer Date Recorded In the past 12 months, has t he [employer], gas, oil or water company threatened to shut off services in your home? No 07/27/2024 Depression Answer Date Recorded Patient Health Questionnaire-2 Score 1 08/03/2024 Internet Access Answer Date Recorded Internet Access Q1 Yes 07/27/2024 Internet Access Q2 Not on file 07/27/2024 Comments Unknown Sex and Gender Information Value Date Recorded Sex Assigned at Female 03/30/2022 10:14 AM EDT Legal Sex Female 10:14 AM EDT Gender Identity Female 03/30/2022 10:14 AM EDT Sexual Orientation Choose not to disclose 2021 10:14 AM EDT Last Filed Vital Signs Vital Sign Reading Time Taken Comments Blood Pressure 134/82 08/03/2024 10:34 AM EST Pulse 99 08/03/2024 10:34 AM EST Temperature 37.2 ??C (98.9 ??F) 08/03/2024 10:[address] Respiratory Rate 25 08/03/2024 10:34 AM EST Oxygen Saturation 98% 08/03/2024 10:34 AM EST Inhaled Oxygen Concentration - - Weight 85.5 kg (188 lb 9.6 oz) 08/03/2024 10:34 AM EST Height 162.6 cm (5' 4 ) 08/03/2024 10:34 AM EST Body Mass Index 32.37 08/03/2024 10:34 AM EST Plan of Treatment Upcoming Encounters Date Type Department Care Team (Late st Contact Info) Description 10/09/2024 10:45 AM EDT Office Visit [facility] [address] [place] [phone] Name, MD Alex [address] [place] [address] Health Maintenance Due Date Last Done Comments HIV Screening 1982 Family Planning (PISQ) 1997 Hepatitis C Screening 01/08/2000 Hepatitis B Vaccines (1 of 3 - 19+ 3-dose series) 2001 Pneumococcal Vaccine: Pediatrics (0 to 5 Years) and At-Risk Patients (6 to 49) Years) (1 of 2 - PCV) 2001 Pap Smear 2003 Cervical Cancer Screening 01/08/2012 HPV/Cotest 01/08/2012 Mammogram 2022 COVID-19 Vaccine (4 - 2024-2 5 season) 2024 05/02/2022, 01/23/2021, 12/25/2020 SDOH Screening 07/27/2025 07/27/2024 Alcohol/Substance Use Screening 08/03/2025 08/03/2024 Depression Screening 08/03/2025 08/03/2024, 08/03/2024 Diabetes: Hemoglobin A1C 08/03/2025 025, 02/06/2021 Tobacco Screening 08/03/2025 08/03/2024 Lipid Panel 08/03/2029 08/03/2024, 02/06/2021 Zoster Vaccines (1 of 2) 01/08/2032 DTaP/Tdap/Td Vaccines (2 - T d or Tdap) 08/03/2034 08/03/2024, 12/27/2018 RSV Patients and Patients Aged 60 years or older (1 - 1-dose 75+ series) 2057 Influenza Vaccine Completed 08/03/2024, 05/12/2021 HIB Vaccines Aged Out No longer eligi ble based on patient's age to complete this topic HPV Vaccines Aged Out No longer eligi ble based on patient's age to complete this topic Hepatitis A Vaccines Aged Out No long er eligible based on patient's age to complete this topic IPV Vaccines Aged Out No longer eligi ble based on patient's age to complete this topic Meningococcal Vaccine Aged Out No jacki rodger eligible based on patient's age to complete this topic RSV under 20 months Aged Out No longe r eligible based on patient's age to complete this topic Rotavirus Vaccines Aged Out No longer eligible based on patient's age to complete this topic Procedures Procedure Name Priority Date/Time Associated Diagnosis Comments LIPID PANEL, STANDARD Routine 08/03/2024 11:38 AM EST Prediabetes COMPREHENSIVE METABOLIC PANEL Routine 08/03/2024 11:38 AM EST Prediabetes Seizure disorder (CMS/HCC) CBC WITH AUTO DIFFERENTIAL Routine 08/03/2024 11:38 AM EST Prediabetes Seizure disorder (CMS/HCC) Menorrhagia with regular cycle POCT GLYCATED HEMOGLOBIN, TOTAL Routine 08/03/2024 10:42 AM EST Prediabetes POCT GLUCOSE Routine 08/03/2024 10:42 AM EST Prediabetes from Last 3 Months Results * (ABNORMAL) CBC auto differential (08/03/2024 11:38 AM EST) White Blood Count 9.9 4.8 - 10.8 X10*3/uL [facility] Red Blood Count 4.24 4.20 - 5.50 X10*6/uL [facility] Hemoglobin 13.1 12.0 - 16.0 g/dl [facility] Hematocrit 38.7 37.0 - 47.0 % [facility] Mean Corpuscular Volume 91.3 80.0 - 98.0 fL [facility] Mean Corpuscular Hemoglobin 30.9 27.0 - 33.0 pg [facility] Mean Corpuscular HGB Conc 33.9 31.0 - 35.0 g/dl [facility] Red Cell Distribution Width 13.0 11.0 - 16.0 % [facility] Platelet Count 352 160 - 400 X10*3/uL [facility] Mean Platelet Volume 9.3(L) 9.4 - 12.3 fL [facility] Neutrophils Percent Auto 59.3 45 - 73 % [facility] Imm Gran Pct Auto 1.3(H) 0.0 - 0.4 % [facility] Lymphocytes Percent Auto 31.2 20 - 40 % [facility] Monocytes Percent Auto 6.8 2 - 11 % [facility] Eosinophils Percent Auto 0.8 0 - 4 % [facility] Basophils Percent Auto 0.6 0 - 2 % [facility] NRBC Pct Auto 0.0 0.0 - 0.2 /100WBC [facility] Neutrophils Absolute Auto 5.9 2.0 - 8.3 x10*3/uL [facility] Imm Gran Abs Auto 0.13(H) 0.00 - 0.03 X10*3/uL [facility] Lymphocytes Absolute Auto 3.1 1.2 - 4.9 X10*3/uL [facility] Monocytes Absolute Auto 0.7 0.1 - 1.2 X10*3/uL [facility] Eosinophils Absolute Auto 0.1 0.0 - 0.4 X10*3/uL [facility] Basophils Absolute Auto 0.1 0.0 - 0.2 X10*3/uL [facility] NRBC Abs Auto 0.000 0.0 - 0.012 X10*3/uL [facility] Blood Venous blood specimen / Unknown 08/03/2024 11:38 AM EST 08/03/2024 1:16 PM EST us Alex Davila MD LAB BLOOD ORDERABLES Final Resul t [facility] [address] [place] [phone] * (ABNORMAL) Lipid Panel, Standard (08/03/2024 11:38 AM EST) Triglycerides 299(H) <150 mg/dL [facility] Comment:Desirable Triglyceri de: less than 150 mg/dLBorderline High Triglyceride 150-199 mg/dLHigh Triglyceride: 200-499 mg/dLVery High Triglyceride: greater than or equal to 5OO mg/dL Cholesterol 178 <200 mg/dL [facility] Comment:Desirable Cholestero l: less than 200 mg/dLBorderline High Cholesterol: 200-239 mg/dLHigh Cholesterol: greater than 239 mg/dL LDL Cholesterol Calculated 77 <100 mg/dL [facility] Comment:Desirable LDL: less than 100 mg/dLNear Optimal/Above Optimal LDL: 110- 129 mg/dLBorderline High LDL: 130-159 mg/dLHigh LDL: 160-189 mg/dLVery High LDL: greater than or equal to 190 mg/dL HDL Cholesterol 42 >40 mg/dL [facility] Comment:Desirable HDL: great er than 40 mg/dL Note: This HDL assay may give artificially low results in patients with liver disease. Blood Venous blood specimen / Unknown 08/03/2024 11:38 AM EST 08/03/2024 1:31 PM EST us Alex Davila MD LAB BLOOD ORDERABLES Final Resul t [facility] [address] [place] [address] [phone] * (ABNORMAL) Comprehensive Metabolic Panel (08/03/2024 11:38 AM EST) Sodium 136 135 - 145 mmol/L [facility] Potassium 4.4 3.3 - 5.1 mmol/L [facility] Chloride 106 96 - 108 mmol/L [facility] Carbon Dioxide 22 22 - 29 mmol/L [facility] Anion Gap 12 12 - 20 [facility] Urea Nitrogen (BUN) 17(H) 9 - 16 mg/dL [facility] Creatinine, Serum 0.73 0.5 - 1.4 mg/dL [facility] Estimated Glomerular Filt Rate >60 [facility] Comment:Chronic Kidney Disea se: Estimated GFR < 60 mL/min/1.50b6Bxblen Kidney Disease: Estimated GFR < 15 mL/min/1.73m2 Glucose 135(H) 60 - 115 mg/dL [facility] Calcium 9.7 8.4 - 10.2 mg/dL [facility] Bilirubin, Total 0.2 0.0 - 1.0 mg/dL [facility] Aspartate Amino Transferase 18 5 - 31 U/L [facility] Alanine Aminotransferase 18 0 - 31 U/L [facility] Total Protein 8.4(H) 6.5 - 8.0 g/dL [facility] Albumin Level 4.4 3.5 - 5.0 g/dL [facility] Alkaline Phosphatase 78 39 - 117 U/L [facility] Blood Venous blood specimen / Unknown 08/03/2024 11:38 AM EST 08/03/2024 1:31 PM EST us Alex Davila MD LAB BLOOD ORDERABLES Final Resul t [facility] [address] [place] [address] [phone] * (ABNORMAL) POCT HGB A1C (08/03/2024 10:42 AM EST) Hemoglobin A1C 6.2(A) 4.0 - 6.0 % [employer] Media Lot # [id number] Lot# Expiration Date [id number] Blood 08/03/2024 10:4 2 AM EST Alex Davila MD POINT OF CARE TEST ENTER/EDIT OR DERABLES Final Result * POCT Glucose (08/03/2024 10:42 AM EST) Glucose Blood, POC 162 60 - 200 mg/dL [employer] Lot # [id number] Lot# Expiration Date [id number] Blood Capillary blood specimen / Unknown 08/03/2024 10:42 AM EST Alex Davila MD POINT OF CARE TEST ENTER/EDIT OR DERABLES Final Result from Last 3 Months Insurance [facility] C3 Care Teams Port Patrol Officer Relationship Specialty Start Date End Date Name, MD Alex [address] [place] [id number] PCP - General Internal Medicine 08/03/24
--- OUTSIDE RECORDS SUMMARY | 2024-08-03 14:16 | XMS_ITS | Encounter Summary ---
Author Organization [employer] Address [address] [facility] [address] [place] [address] Care Team Providers Care Director Of Vendor Management Name Role Phone Unavailable Primary Care Provider Unavailabl e Reason for Visit * Reason Comments Pre-visit Planning SDOH negative, Tobac co screening negative. Encounter Details Date Type Department Care Team ([facility] st Contact Info) Description 07/27/2024 Patient Outreach [facility] [address] [place] [address] Name, MD Alex [address] [place] [address] Pre-visit Planning (SDOH negative, Tobacco screening negative. ) Social History Tobacco Use Types Packs/Day Years Used Date Smoking Tobacco: Never Assessed Housing Stability Answer Date Recorded What is [...] the past 12 months, has t he electric, gas, oil or water company threatened to shut off services in your home? No 07/27/2024 Internet Access Answer Date Recorded Internet Access Q1 Yes 07/27/2024 Internet Access Q2 Not on file 07/27/2024 Comments Unknown Sex and Gender Information Value Date Recorded Sex Assigned at Female 03/30/2022 10:14 AM EDT Legal Sex Female 10:14 AM EDT Gender Identity Female 03/30/2022 10:14 AM EDT Sexual Orientation Choose not to disclose 2021 10:14 AM EDT documented as of this encounter Progress Notes * Ting Ulrich - 07/27/2024 4:18 PM EST CC Ting Richter placed successful outbound call to patient for pre-visit planning. Patient name and confirmed. Patient confirms appt date and time, and has transportation arrangements. Biggest concern for appointment at this time is uncontrolled diabetes and convulsions. Patient needs to do a mammography. Appropriate screenings completed in anticipation of appointment. documented in this encounter Plan of Treatment Upcoming Encounters Date Type Department Care Team (Late st Contact Info) Description 10/09/2024 10:45 AM EDT Office Visit [facility] [address] [place] [address] Name, MD Alex [address] [place] [address] documented as of this encounter Visit Diagnoses Not on filedocumented in this encounter
--- OUTSIDE RECORDS SUMMARY | 2024-08-03 14:16 | XMS_ITS | Encounter Summary ---
Author Organization [employer] Address [address] [facility] [address] [place] [address] Care Team Providers Care Wound Care Physician Name Role Phone Name, Alex SALEH Primary Care Provider [phone] Encounter Details Date Type Department Care Team (Latest Contact Info) Description 08/03/2024 Travel Social History Tobacco Use Types Packs/Day Years Used Date Smoking Tobacco: Some Days Cigarettes Passive Smoke Exposure: Current Alcohol Use Standard Drinks/Week Comments Yes 0 [...] AM EDT documented as of this encounter Plan of Treatment Upcoming Encounters Date Type Department Care Team (Late st Contact Info) Description 10/09/2024 10:45 AM EDT Office Visit [facility] [address] [place] [address] Name, MD Alex [address] [place] [phone] documented as of this encounter Visit Diagnoses Not on filedocumented in this encounter Additional Health Concerns Assessment Noted Time PHQ-9 Depression Total Score: 6 08/04/19 25 11:13 AM EST documented as of this encounter Care Teams Wound Care Physician Relationship Specialty Start Date End Date Name, MD Alex [address] [place] [phone] PCP - General Internal Medicine 08/03/24 documented as of this encounter
--- OUTSIDE RECORDS SUMMARY | 2024-08-03 14:16 | XMS_ITS | Encounter Summary ---
Author Organization [employer] Address [address] [facility] [address] [place] [address] Care Team Providers Care Locomotive Observer Name Role Phone NameAlex MD Primary Care Provider [phone] Reason for Referral * Consultation (Routine) - Authorized Specialty Diagnoses / Procedures Referred By Emili castillo Referred To Contact Midwifery Diagnoses Menorrhagia with regular cycle Alex Davila MD [address] [place] [phone] Phone: tel: fax: Tarsha Jeff CNM [address] [place] [address] Phone: tel: fax: Referral ID Status Reason Start Date Expiration Date Visits Requested Visits Authorized [id number] Authorized Consult and Treat 08/03/2024 08/03/2025 1 1 * Imaging (Routine) - Closed Specialty Diagnoses / Procedures Referred By Emili castillo Referred To Contact Radiology Diagnoses Encounter for screening mammogram for malignant neoplasm of breast Procedures BI Mammogram Screening Tomosynthesis Bilateral Alex Davila MD [address] [place] [phone] Phone: tel: fax: [address] Phone: tel: fax: Referral ID Status Reason Start Date Expiration Date Visits Re quested Visits Authorized [id number] Closed 08/03/2024 08/03/2025 1 1 * Consultation (Routine) - Pending Review Specialty Diagnoses / Procedures Referred By Contac t Referred To Contact Neurology Diagnoses Seizure disorder (CMS/HCC) Alex Davila MD [address] [place] [phone] Phone: tel: fax: Referral ID Status Reason Start Date Expiration Date Visits Requested Visits Authorized [id number] Pending Review Specialty Services Required 08/03/2024 08/03/2025 1 1 Reason for Visit * Reason Comments new patient Encounter Details Date Type Department Care Team ([facility] st Contact Info) Description 08/03/2024 10:45 AM EST Office Visit [facility] [address] [place] [phone] Alex Davila MD [address] [place] [id number] Seizure disorder (CMS/HCC) (Primary Dx); Prediabetes; Chronic insomnia; Menorrhagia with regular cycle; Depression with anxiety; Encounter for screening mammogram for malignant neoplasm of breast Social History Tobacco Use Types Packs/Day Years [...] AM EDT documented as of this encounter Last Filed Vital Signs Vital Sign Reading [...] Mass Index 32.37 08/03/2024 10:34 AM EST documented in this encounter Progress Notes * Alex Davila MD - 08/03/2024 10:45 AM EST Subjective Patient ID: Hermelindo Kaur is a 44 y.o. female who presents for new patient. Patient comes today for the first time to see me. She is returning to medical care. She was previously seen at the [facility] back in 2021. She has a past medical history of prediabetes. She explains to me that she started having seizures last year. She tells me she had 2 witnessed seizures. She does not remember the seizures, she describes confusion after the seizures, tongue biting, tonic-clonic movements. She was evaluated with MRI last year at [facility] that was negative for acute pathology. She was started on Keppra but she did not use the medication consistently. She was referred to neurology but she did not keep the appointment. She does not drink much alcohol, she does not use illicits, she does not drive. She is interested in restarting the Keppra, she wants to take better care of her health. She tells me she is not sexually active. She has regular periods but are sometimes heavy. She is interested in referral to gynecology. She agreed with referral to mammogram, flu and Tdap vaccinations today. She admits to symptoms of depression and anxiety. She is not interested in any medication or referral to behavioral health. She would like a letter to be allowed to keep her cat in her apartment forcompanionship. Review of Systems Constitutional: Negative for chills and fever. HENT: Negative for sore throat. Respiratory: Negative for cough, shortness of breath and wheezing. Cardiovascular: Negative for chest pain, palpitations and leg swelling. Gastrointestinal: Negative for abdominal pain. Neurological: Positive for seizures. Psychiatric/Behavioral: Negative for suicidal ideas. The patient is nervous/anxious. Visit Vitals BP 134/82 (BP Location: Left arm, Patient Position: Sitting, BP Cuff Size: Large adult) Pulse 99 Temp 98.9 ??F (37.2 ??C) (Oral) Resp 25 Ht 5' 4 (1.626 m) Wt 188 lb 9.6 oz (85.5 kg) LMP 07/08/2024 SpO2 98% BMI 32.37 kg/m?? Smoking Status Some Days BSA 1.97 m?? Objective Physical Exam Constitutional: Appearance: Normal appearance. Cardiovascular: Rate and Rhythm: Normal rate and regular rhythm. Heart sounds: No murmur heard. No gallop. Pulmonary: Effort: Pulmonary effort is normal. No respiratory distress. Breath sounds: Normal breath sounds. No wheezing. Musculoskeletal: Right lower leg: No edema. Left lower leg: No edema. Neurological: Mental Status: She is alert. Assessment/Plan Diagnoses and all orders for this visit: Seizure disorder ([facility]) Comments: Restart Keppra Referral to neurology Check fasting blood work listed below She is recommended to avoid alcohol She does not drive. She has difficulty sleeping so I will add melatonin at bedtime to her medications. Orders: - levETIRAcetam (Keppra) 500 MG tablet; Take 1 tablet (500 mg) by mouth 2 times daily. - Referral to Neurology; Future - CBC auto differential; Future - Comprehensive Metabolic Panel; Future - Albumin, Random Urine W/Creatinine; Future Prediabetes Comments: Avoid sweets and soda, regular physical activity Check blood work listed below Orders: - POCT Glucose - POCT HGB A1C - CBC auto differential; Future - Comprehensive Metabolic Panel; Future - Albumin, Random Urine W/Creatinine; Future - Lipid Panel, Standard; Future Chronic insomnia Comments: I recommended melatonin at bedtime. Menorrhagia with regular cycle Comments: Check CBC. Referral to gynecology. Orders: - Referral to Gynecology (Tarsha); Future Depression with anxiety Comments: I suggested referral to behavioral health but she is not interested. She was instructed to go to medical records to request a letter to be allowed to keep a cat in an apartment. Encounter for screening mammogram for malignant neoplasm of breast - BI Mammogram Screening Tomosynthesis Bilateral; Future Other orders - melatonin 5 MG tablet; Take 1 tablet (5 mg) by mouth if needed at bedtime (insomnia). - Tdap vaccine greater than or equal to 7 years old IM - Flu vaccine greater than or equal to 6 months old, preservative free IM documented in this encounter Plan of Treatment Upcoming Encounters Date Type Department Care Team (Late st Contact Info) Description 10/09/2024 10:45 AM EDT Office Visit [facility] [address] [place] [phone] Name, MD lAex [address] [place] [address] Scheduled Orders Name Type Priority Associated Diagnoses Orde r Schedule Albumin, Random Urine W/Creatinine Lab Routine Prediabetes Seizure disorder (CMS/HCC) Expected: 08/03/2024 (Approximate), Expires: 08/03/2025 BI Mammogram Screening Tomosynthesis Bilateral Imaging Routine Encounter for screening mammogram for malignant neoplasm of breast Expected: 08/03/2024, Expires: 10/03/2025 Scheduled Referrals Name Type Priority Associated Diagnoses Order Schedule Referral to Neurology Outpatient Referral Routine Seizure disorder (CMS/HCC) Expected: 08/03/2024 (Approximate), Expires: 08/03/2025 Referral to Gynecology (Tarsha) Outpatient Referral Routine Menorrhagia with regular cycle Expected: 08/03/2024 (Approximate), Expires: 08/03/2025 documented as of this encounter Procedures Procedure Name Priority Date/Time Associated Diagnosis Comments CBC WITH AUTO DIFFERENTIAL Routine 08/03/2024 11:38 AM EST Prediabetes Seizure disorder (CMS/HCC) Menorrhagia with regular cycle LIPID PANEL, STANDARD Routine 08/03/2024 11:38 AM EST Prediabetes COMPREHENSIVE METABOLIC PANEL Routine 08/03/2024 11:38 AM EST Prediabetes Seizure disorder (CMS/HCC) POCT GLYCATED HEMOGLOBIN, TOTAL Routine 08/03/2024 10:42 AM EST Prediabetes POCT GLUCOSE Routine 08/03/2024 10:42 AM EST Prediabetes documented in this encounter Results * (ABNORMAL) Lipid Panel, Standard (08/03/2024 11:38 AM EST) Triglycerides 299(H) <150 mg/dL [facility] Comment:Desirable Triglyceri de: less than 150 mg/dLBorderline High Triglyceride 150-199 mg/dLHigh Triglyceride: 200-499 mg/dLVery High Triglyceride: greater than or equal to 5OO mg/dL Cholesterol 178 <200 mg/dL [facility] Comment:Desirable Cholestero l: less than 200 mg/dLBorderline High Cholesterol: 200-239 mg/dLHigh Cholesterol: greater than 239 mg/dL LDL Cholesterol Calculated 77 <100 mg/dL [facility] Comment:Desirable LDL: less than 100 mg/dLNear Optimal/Above Optimal LDL: 110- 129 mg/dLBorderline High LDL: 130-159 mg/dLHigh LDL: 160-189 mg/dLVery High LDL: greater than or equal to 190 mg/dL HDL Cholesterol 42 >40 mg/dL [facility] Comment:Desirable HDL: great er than 40 mg/dL Note: This HDL assay may give artificially low results in patients with liver disease. Blood Venous blood specimen / Unknown 08/03/2024 11:38 AM EST 08/03/2024 1:31 PM EST us Alex Name MD LAB BLOOD ORDERABLES Final Resul t [facility] [address] [place] [phone] * (ABNORMAL) Comprehensive Metabolic Panel (08/03/2024 11:38 AM EST) Sodium 136 135 - 145 mmol/L [facility] Potassium 4.4 3.3 - 5.1 mmol/L [facility] Chloride 106 96 - 108 mmol/L [facility] Carbon Dioxide 22 22 - 29 mmol/L [facility] Anion Gap 12 12 - 20 [facility] Urea Nitrogen (BUN) 17(H) 9 - 16 mg/dL [facility] Creatinine, Serum 0.73 0.5 - 1.4 mg/dL [facility] Estimated Glomerular Filt Rate >60 [facility] Comment:Chronic Kidney Disea se: Estimated GFR < 60 mL/min/[id number] Kidney Disease: Estimated GFR < 15 mL/min/1.73m2 Glucose 135(H) 60 - 115 mg/dL [facility] Calcium 9.7 8.4 - 10.2 mg/dL [facility] Bilirubin, Total 0.2 0.0 - 1.0 mg/dL [facility] Aspartate Amino Transferase 18 5 - 31 U/L [facility] Alanine Aminotransferase 18 0 - 31 U/L [facility] Total Protein 8.4(H) 6.5 - 8.0 g/dL [facility] Albumin Level 4.4 3.5 - 5.0 g/dL [facility] Alkaline Phosphatase 78 39 - 117 U/L [facility] Blood Venous blood specimen / Unknown 08/03/2024 11:38 AM EST 08/03/2024 1:31 PM EST us Alex Name LAB BLOOD ORDERABLES Final Resul t [facility] [address] [place] [phone] * (ABNORMAL) CBC auto differential (08/03/2024 11:38 AM EST) White Blood Count 9.9 4.8 - 10.8 X10*3/uL [facility] Red Blood Count 4.24 4.20 - 5.50 X10*6/uL [facility] Hemoglobin 13.1 12.0 - 16.0 g/dl [facility] Hematocrit 38.7 37.0 - 47.0 % [facility] Mean Corpuscular Volume 91.3 80.0 - 98.0 fL [facility] Mean Corpuscular Hemoglobin 30.9 27.0 - 33.0 pg [facility] Mean Corpuscular HGB Conc 33.9 31.0 - 35.0 g/dl [facility] Red Cell Distribution Width 13.0 11.0 - 16.0 % [facility] Platelet Count 352 160 - 400 X10*3/uL [facility] Mean Platelet Volume 9.3(L) 9.4 - 12.3 fL [facility] Neutrophils Percent Auto 59.3 45 - 73 % [facility] Imm Gran Pct Auto 1.3(H) 0.0 - 0.4 % [facility] Lymphocytes Percent Auto 31.2 20 - 40 % [facility] Monocytes Percent Auto 6.8 2 - 11 % [facility] Eosinophils Percent Auto 0.8 0 - 4 % [facility] Basophils Percent Auto 0.6 0 - 2 % [facility] NRBC Pct Auto 0.0 0.0 - 0.2 /100WBC [facility] Neutrophils Absolute Auto 5.9 2.0 - 8.3 x10*3/uL [facility] Imm Gran Abs Auto 0.13(H) 0.00 - 0.03 X10*3/uL [facility] Lymphocytes Absolute Auto 3.1 1.2 - 4.9 X10*3/uL [facility] Monocytes Absolute Auto 0.7 0.1 - 1.2 X10*3/uL [facility] Eosinophils Absolute Auto 0.1 0.0 - 0.4 X10*3/uL [facility] Basophils Absolute Auto 0.1 0.0 - 0.2 X10*3/uL [facility] NRBC Abs Auto 0.000 0.0 - 0.012 X10*3/uL [facility] Blood Venous blood specimen / Unknown 08/03/2024 11:38 AM EST 08/03/2024 1:16 PM EST us Alex Davila MD LAB BLOOD ORDERABLES Final Resul t Performing Organization Address City/State/[facility] Co de Phone Number [facility] [address] [place] [phone] * (ABNORMAL) POCT HGB A1C (08/03/2024 10:42 AM EST) Hemoglobin A1C 6.2(A) 4.0 - 6.0 % [employer] Lot # [id number] Lot# Expiration Date [id number] Blood 08/03/2024 10:4 2 AM EST us Alex Davila MD POINT OF CARE TEST ENTER/EDIT OR DERABLES Final Result * POCT Glucose (08/03/2024 10:42 AM EST) Glucose Blood, POC 162 60 - 200 mg/dL [employer] Lot # [id number] Lot# Expiration Date 82,625 Blood Capillary blood specimen / Unknown 08/03/2024 10:42 AM EST us Alex Davila MD POINT OF CARE TEST ENTER/EDIT OR DERABLES Final Result documented in this encounter Visit Diagnoses Diagnosis Seizure disorder (CMS/HCC)- Primary Unspecified epilepsy without mention of intractable epilepsy Prediabetes Other abnormal glucose Chronic insomnia Insomnia, unspecified Menorrhagia with regular cycle Depression with anxiety Dysthymic disorder Encounter for screening mammogram for malignant neoplasm of breast documented in this encounter Additional Health Concerns Assessment Noted Time PHQ-9 Depression Total Score: 6 08/04/19 11:13 AM EST documented as of this encounter Care Teams Locomotive Observer Relationship Specialty Start Date End Date Name, MD Alex [address] [place] [address] PCP - General Internal Medicine 08/03/24 documented as of this encounter
[2024-08-03 14:42] LABS: Creatinine Urine 66.84 mg/dL; Microalbum/Creatinine Ratio Ur 28.4 ug/mg cr (<30)
== END 2024-08-03 11:37 | disposition home or self-care (01) ==
LOC: HO.HHCL 11:36
PROVIDERS: Visit Provider Internal Medicine Geriatric Medicine
DX: G40.909 Epilepsy, unspecified, not intractable, without status epilepticus (principal); R73.03 Prediabetes
CPT/HCPCS: 36415; 80053; 80061; 82043; 82570; 85025

== ENCOUNTER 2024-09-23 00:01 | Emergency (ER) | payer MEDICAID, SELFPAY ==
--- NOTE | ~2024-09-23 | CT_ITS ---
CLINICAL HISTORY: Post seizure fall CT head without contrast Comparison: None Findings: No intra-axial mass, midline shift, hydrocephalus, or acute hemorrhage. No significant atrophy-like change or white matter disease. Mucosal thickening of the right maxillary sinus and left ethmoid anterior air cells. The orbits are unremarkable. Scalp swelling in the right frontoparietal area. There is no acute fracture. IMPRESSION: 1. No acute intracranial findings. 2. Right parietal scalp swelling. This document has been electronically signed by: Dev Baker MD on 09/23/2024 02:52:05
[2024-09-23 00:04] VITALS: BP 110/69; BP 119/50; PULSE 115; PULSE 97; RESP 20; TEMP 36.9; O2SAT 98; O2SAT 99; BMI 36.1
[2024-09-23 00:12] VITALS: BP 119/50; PULSE 91; RESP 13; TEMP 36.9; O2SAT 100
[2024-09-23 01:08] LABS: Basophils Percent Auto 0.4 % (0-2); Eosinophils Absolute Auto 0.2 X10*3/uL (0.0-0.4); Eosinophils Percent Auto 1.5 % (0-4); Hematocrit 37.6 % (37.0-47.0); Hemoglobin 12.9 g/dl (12.0-16.0); Imm Gran Abs Auto 0.05 X10*3/uL (0.00-0.03); Imm Gran Pct Auto 0.4 % (0.0-0.4); MANUAL DIFF FLAG NO; Mean Corpuscular HGB Conc 34.3 g/dl (31.0-35.0); Mean Corpuscular Hemoglobin 30.5 pg (27.0-33.0); Mean Corpuscular Volume 88.9 fL (80.0-98.0); Mean Platelet Volume 8.9 fL (9.4-12.3); Monocytes Absolute Auto 0.6 X10*3/uL (0.1-1.2); Monocytes Percent Auto 5.4 % (2-11); Neutrophils Absolute Auto 7.6 x10*3/uL (2.0-8.3); Neutrophils Percent Auto 66.3 % (45-73); Platelet Count 257 X10*3/uL (160-400); Red Blood Count 4.23 X10*6/uL (4.20-5.50); Red Cell Distribution Width 12.1 % (11.0-16.0); White Blood Count 11.4 X10*3/uL (4.8-10.8)
[2024-09-23 01:33] LABS: Alanine Aminotransferase 12 U/L (0-31); Albumin Level 4.2 g/dL (3.5-5.0); Alkaline Phosphatase 63 U/L (39-117); Anion Gap 16 (12-20); Aspartate Amino Transferase 16 U/L (5-31); Bilirubin Total 0.3 mg/dL (0.0-1.0); Blood Urea Nitrogen 9 mg/dL (9-16); Calcium 9.6 mg/dL (8.4-10.2); Carbon Dioxide 20 mmol/L (22-29); Chloride 105 mmol/L (96-108); Creatinine Clr Calc Pharmacy 113.6; Estimated Glomerular Filt Rate > 60; Glucose Random 140 mg/dL (60-115); Potassium 3.6 mmol/L (3.3-5.1); Sodium 137 mmol/L (135-145); Total Protein 7.2 g/dL (6.5-8.0); Troponin-I High Sensitivity < 2.7 ng/L (<3.5-17.0)
--- NOTE | 2024-09-23 01:47 | ED_ITS ---
HPI - Seizure General Chief Complaint: Seizure Stated Complaint: seizure Time Seen by Provider: 09/23/24 01:39 Source: patient Mode of arrival: EMS Limitations: no limitations History of Present Illness ED Provider: HPI Narrative: Patient with history of generalized tonic-clonic seizure since 01/21 on Keppra ran out of her medication for last 4 days came here for having generalized tonic-clonic seizure lasted for about 3 4 minutes witnessed by the family did not hit her head to the ground with tongue bite while taking the Keppra patient did not have any seizure patient was postictal confused complaining of headache no nausea no vomiting no fever Seizure History: Yes Place: Home Related Data Previous Rx's ?Medication ?Instructions ?Recorded levetiracetam 500 mg tablet 500 mg PO BID #180 tabs 01/14/24 nitrofurantoin 100 mg PO Q12H #6 caps 01/14/24 monohydrate/macrocrystals 100 mg capsule guaifenesin 200 mg/5 mL oral liquid 200 mg (5 mL) PO Q4H PRN cough 06/17/24 #118 mL levetiracetam 500 mg tablet 500 mg PO BID #180 tabs 09/23/24 (Keppra) Allergies Allergy/AdvReac Type Severity Reaction Status Date / Time No Known Allergies Allergy Verified 09/23/24 00:12 [No Known Allergies*] Review of Systems 2 Review of Systems: Yes all other systems are reviewed and are negative [facility] Past Medical History Medical History Diet-controlled type 2 diabetes mellitus HTN (hypertension) Social History Social History Household Members: Family Housing: House Alcohol intake: never Patient Tobacco Use Status: Current someday Tobacco user Tobacco use type: Cigarette Substance Use Type: Marijuana Physical Exam 2 Vital Signs: Vital Signs: Last Vital Signs Temp 98.4 F 09/23/24 03:13 Pulse 87 09/23/24 03:13 Resp 12 09/23/24 03:13 BP 115/72 09/23/24 03:13 Pulse Ox 97 09/23/24 03:13 O2 Del Method Room Air 09/23/24 03:13 BMI result Body Mass Index 36.1 Appearance: Alert. Oriented X3. No acute distress. Eyes: PERRLA, No Nystagmus ENT: Pharynx normal. Oral Mucosa moist bilateral tongue bite Neck: Normal inspection. Neck supple. CVS: Normal heart rate and rhythm. Pulses normal. Respiratory: No respiratory distress. Equal air entry bilateral, no wheezing/rales/rhonchi Abdomen: Soft and nontender. Bowel sounds are present, no mass palpable, no CVA tenderness Skin: Skin warm and dry. Normal skin color. Normal skin turgor. Extremities: No lower extremity edema. No calf tenderness Neuro: Oriented X 3. No motor deficit. No sensory deficit.No cerebellar signs , cranial nerves II-XII intact Medications Administered Discontinued Medications Generic Name Dose Route Start Last Admin Trade Name Freq PRN Reason Stop Dose Admin Levetiracetam 1,000 mg 09/23/24 01:47 09/23/24 01:57 Levetiracetam 1,000 Mg Tablet PO 09/23/24 01:48 1,000 mg ONCE ONE Administration Medical Decision Making Medical Decision Making [facility] Narrative: Patient with history of seizure had a seizure as she missed her medication CT scan negative for acute was given Keppra in the ER prescription refilled labs are stable advised to follow with neurologist Differential Diagnosis Differential Diagnoses: The differential diagnosis associated with the presentation includes Seizure/CVA/subarachnoid bleed Lab Data [facility] Lab Attestation statement: I reviewed the patient's lab results. 09/23/24 01:03 09/23/24 01:03 Labs: Lab Results 09/23/24 Range/Units 01:03 WBC 11.4 H (4.8-10.8) X10*3/uL RBC 4.23 (4.20-5.50) X10*6/uL Hgb 12.9 (12.0-16.0) g/dl Hct 37.6 (37.0-47.0) % MCV 88.9 (80.0-98.0) fL MCH 30.5 (27.0-33.0) pg MCHC 34.3 (31.0-35.0) g/dl RDW 12.1 (11.0-16.0) % Plt Count 257 D (160-400) X10*3/uL MPV 8.9 L (9.4-12.3) fL Immature Gran % (Auto) 0.4 (0.0-0.4) % Neut % (Auto) 66.3 (45-73) % Lymph % (Auto) 26.0 (20-40) % [place] % (Auto) 5.4 (2-11) % Eos % (Auto) 1.5 (0-4) % Baso % (Auto) 0.4 (0-2) % Lymph # (Auto) 3.0 (1.2-4.9) X10*3/uL [place] # (Auto) 0.6 (0.1-1.2) X10*3/uL Eos # (Auto) 0.2 (0.0-0.4) X10*3/uL Baso # (Auto) 0.0 (0.0-0.2) X10*3/uL Abs Immat Gran (auto) 0.05 H (0.00-0.03) X10*3/uL Absolute Neuts (auto) 7.6 (2.0-8.3) x10*3/uL Absolute Nucleated RBC 0.000 (0.0-0.012) X10*3/uL Nucleated RBC % (auto) 0.0 (0.0-0.2) /100WBC Sodium 137 (135-145) mmol/L Potassium 3.6 (3.3-5.1) mmol/L Chloride 105 (96-108) mmol/L Carbon Dioxide 20 L (22-29) mmol/L Anion Gap 16 (12-20) BUN 9 (9-16) mg/dL Creatinine 0.67 (0.5-1.4) mg/dL Estim Creat Clear Calc 113.6 Estimated GFR > 60 Random Glucose 140 H (60-115) mg/dL Calcium 9.6 (8.4-10.2) mg/dL Total Bilirubin 0.3 (0.0-1.0) mg/dL AST 16 (5-31) U/L ALT 12 (0-31) U/L Alkaline Phosphatase 63 (39-117) U/L Troponin I High Sens < 2.7 (<3.5-17.0) ng/L Total Protein 7.2 (6.5-8.0) g/dL Albumin 4.2 (3.5-5.0) g/dL Radiology Impression Discussion of test interpretation with radiology: I have reviewed the radiologist's reading. Discharge Plan Discharge Clinical Impression: Epileptic seizure Patient Disposition: Home, Self-Care Instructions: Epilepsy (ED) Additional Instructions: Continue take your medication for epilepsy and follow with neurologist Prescriptions: New levetiracetam [Keppra] 500 mg tablet 500 mg PO BID Qty: 180 3RF No Action guaifenesin 200 mg/5 mL liquid 200 mg PO Q4H PRN (Reason: cough) Qty: 118 0RF levetiracetam 500 mg Tablet 500 mg PO BID Qty: 180 0RF nitrofurantoin monohyd/m-cryst 100 mg Capsule 100 mg PO Q12H Qty: 6 0RF Interventions: ED Discharge Assessment Last Done: 09/23/24 03:13 Discharge Date/Time: 09/23/24 03:14 Print Language: Anguillan
[2024-09-23 01:57] VITALS: BP 97/48; PULSE 85; RESP 16; O2SAT 99
[2024-09-23] MEDS: levETIRAcetam 1,000 MG TABLET 1000 MG PO (01:57)
[2024-09-23 03:12] VITALS: BP 115/72; PULSE 87; RESP 12; TEMP 36.9; O2SAT 97
[2024-09-23 03:13] VITALS: BP 115/72; PULSE 87; RESP 12; TEMP 36.9; O2SAT 97
== END 2024-09-23 03:14 | disposition home or self-care (01) ==
PROVIDERS: Emergency Provider Internal Medicine
DX: G40.909 Epilepsy, unspecified, not intractable, without status epilepticus (principal); R22.0 Localized swelling, mass and lump, head; F17.210 Nicotine dependence, cigarettes, uncomplicated
CPT/HCPCS: 36415; 70450; 80053; 84484; 85025; 99284

== ENCOUNTER → 2024-09-23 02:01 | Outpatient (BNV) | payer MEDICAID, SELFPAY | PROVIDERS: Emergency Provider Internal Medicine; Visit Provider Radiology Diagnostic Radiology | DX: R22.0 Localized swelling, mass and lump, head (principal) | CPT/HCPCS: 70450 ==

== ENCOUNTER 2024-10-18 08:46 | Outpatient (REF) | payer MEDICAID, SELFPAY ==
--- OUTSIDE RECORDS SUMMARY | 2024-10-18 10:02 | XMS_ITS | Clinical Summary ---
Author Organization [employer] Address [address] [facility] [address] [place] [address] Care Team Providers Care Pediatric Rn Name Role Phone NameAlex MD Primary Care Provider [phone] Allergies No known active allergies Medications levETIRAcetam (Keppra) 500 MG tabletIndicatio ns:Seizure disorder (CMS/[facility]) Take 1 tablet (500 mg) by mouth 2 times daily. 60 tablet 11 5 Active melatonin 5 MG tablet Take 1 tablet (5 mg) by mouth if needed at bedtime (insomnia). 30 tablet 11 5 08/04/19 26 Active Banophen 25 MG capsuleIndicati ons:Insomnia, unspecified type TOME 1 CAPSULA POR VIA ORAL AL ACOSTARSE CUANDO SEA NECESARIO 30 capsule 2 3 10/10/19 25 Discontinu ed(Ineffec tive) Active Problems Problem Noted Date Diagnosed Date Light cigarette smoker (1-9 cigs/day) 08/03/2024 Knee pain 08/03/2024 Class 1 obesity 08/03/2024 Amblyopia 08/03/2024 Seizure disorder 08/03/2024 Prediabetes 02/09/2021 Encounters Date Type Department Care Team Description 10/09/2024 10:45 AM EDT Office Visit [facility] [address] [place] [phone] Alex Davila MD Seizure disorder (CMS/HCC) (Primary Dx); Prediabetes 10/09/2024 Travel 10/06/2024 Telephone [facility] [address] [place] [phone] Alex Davila MD CHART PREP 09/23/2024 Orders Only [facility] External Provider, [facility] 08/31/2024 Telephone [facility] [address] [place] [phone] Norma Aguilera MA 08/11/2024 Population Health Risk Score [facility] Department [address] [place] [phone] Provider, Population Health Generic 08/03/2024 10:45 AM EST Office Visit [facility] [address] [place] [address] Alex Davila MD Seizure disorder (CMS/HCC) (Primary Dx); Prediabetes; Chronic insomnia; Menorrhagia with regular cycle; Depression with anxiety; Encounter for screening mammogram for malignant neoplasm of breast 08/03/2024 Travel 07/27/2024 Patient Outreach [facility] [address] [place] [address] Alex Davila MD Pre-visit Planning (SDOH negative, Tobacco screening negative. ) from Last 3 Months Immunizations Immunization Administration Dates Next Due Influenza injectable quadrivalent [...] Current Tobacco Cessation:Ready to Q uit: Not Asked; Counseling Given: Not Answered Alcohol Use Standard Drinks/Week Comments Yes 0 [...] the past 12 months, has t he [employer], gas, oil or water company threatened to shut off services in your home? No 07/27/2024 Depression Answer Date Recorded Patient Health Questionnaire-2 Score 1 08/03/2024 Internet Access Answer Date Recorded Internet Access Q1 Yes 07/27/2024 Internet Access Q2 Not on file 07/27/2024 Comments No Sex and Gender Information Value Date Recorded Sex Assigned at Female 03/30/2022 10:14 AM EDT Legal Sex Female 10:14 AM EDT Gender Identity Female 03/30/2022 10:14 AM EDT Sexual Orientation Choose not to disclose 2021 10:14 AM EDT Last Filed Vital Signs Vital Sign Reading Time Taken Comments Blood Pressure 105/64 10/09/2024 10:36 AM EDT Pulse 75 10/09/2024 10:36 AM EDT Temperature 36.6 ??C (97.8 ??F) 10/09/2024 10:36 AM E DT Respiratory Rate 12 10/09/2024 10:36 AM EDT Oxygen Saturation 98% 10/09/2024 10:36 AM EDT Inhaled Oxygen Concentration - - Weight 82.4 kg (181 lb 9.6 oz) 10/09/2024 10:36 AM EDT Height 157.5 cm (5' 2 ) 10/09/2024 10:36 AM EDT Body Mass Index 33.22 10/09/2024 10:36 AM EDT Plan of Treatment Health Maintenance Due Date Last Done Comments [...] 01/08/2012 Mammogram 2022 COVID-19 Vaccine (4 - 2023-2 5 season) 2024 05/02/2022, 01/23/2021, 12/25/2020 SDOH Screening 07/27/2025 07/27/2024 Alcohol/Substance Use Screening 08/03/2025 08/03/2024 Depression Screening 08/03/2025 08/03/2024, 08/03/2024 Diabetes: Hemoglobin A1C 08/03/2025 025, 02/06/2021 Disability Screening 10/09/2025 10/09/2024 Tobacco Screening 10/09/2025 10/09/2024 Lipid Panel 08/03/2029 08/03/2024, 02/06/2021 Zoster Vaccines [...] patient's age to complete this topic Meningococcal B Vaccine Aged Out No l onger eligible based on patient's age to complete [...] Procedure Name Priority Date/Time Associated Diagnosis Comments CT HEAD WO CONTRAST Routine 09/23/2024 2 :52 AM EDT COMPREHENSIVE METABOLIC PANEL Routine 09/23/2024 1:03 AM EDT HIGH SENSITIVITY TROPONIN I Routine 09/23/2024 1:03 AM EDT CBC WITH AUTO DIFFERENTIAL Routine 09/23/2024 1:03 AM EDT LIPID PANEL, STANDARD Routine 08/03/2024 11:38 AM EST Prediabetes ALBUMIN, RANDOM URINE W/CREATININE Routine 08/03/2024 11:38 AM EST Prediabetes Seizure disorder (CMS/HCC) COMPREHENSIVE METABOLIC PANEL Routine 08/03/2024 11:38 AM EST Prediabetes Seizure disorder (CMS/HCC) CBC WITH AUTO DIFFERENTIAL Routine 08/03/2024 11:38 AM EST Prediabetes Seizure disorder (CMS/HCC) Menorrhagia with regular cycle POCT GLYCATED HEMOGLOBIN, TOTAL Routine 08/03/2024 10:42 AM EST Prediabetes POCT GLUCOSE Routine 08/03/2024 10:42 AM EST Prediabetes from Last 3 Months Results * CT Head w/o Contrast (09/23/2024 2:52 AM EDT) Anatomical Region Laterality Modality Head, Neck Computed Tomogra phy 09/23/2024 2:52 AM EDT Narrative 09/23/2024 2:53 AM EDT ? [facility] ?[address] ?[place] [address] ? CT Scan Report ? Signed ? Patient: Vincent Vizcaino,Hermelindo ?MR#: M ?? [id number] ? : 1980 ?Acct:[id number] ? Age/Sex: 44 / F ?ADM Date: 04/26/25 ? Loc: HO.ED ? Attending Dr: ? Ordering Physician: Clifton Stephens MD ?? Date of Service: 09/23/24 ?? Procedure(s): CT head/brain wo IV con ?? Accession Number(s): [id number] ? cc: [facility]; Clifton Stephens MD ? Report Number: ?? [id number]: Total DLP = ??692.00 mGy-cm ? CLINICAL HISTORY: Post seizure fall ? CT head without contrast ? Comparison: None ? Findings: ?? No intra-axial mass, midline shift, hydrocephalus, or acute hemorrhage. ?? No significant atrophy-like change or white matter disease. ? Mucosal thickening of the right maxillary sinus and left ethmoid anterior ?? air cells. ?? The orbits are unremarkable. ?? Scalp swelling in the right frontoparietal area. ?? There is no acute fracture. ? IMPRESSION: ?? 1. No acute intracranial findings. ?? 2. Right parietal scalp swelling. ? This document has been electronically signed by: Dev Baker MD on ?? 09/23/2024 02:52:05 ? Dictated By: ?Dev Baker MD ? Signed By: ?<Electronically signed by Dev Baker MD in OV> ? 09/23/24 0253 ? DD/ 0252 ? TD/TT: 09/23/24 0252 ? Coremaker: ? Procedure Note Purnima, Image - 09/23/[address] [place] [address] [address] Scan Report Signed Patient: Griffin Lebron#: M [id number] : 1980Acct:[id number] Age/Sex: 44 / FADM Date: 09/23/24 Loc: HO.ED Attending Dr: Ordering Physician: Clifton Stephens MD Date of Service: 09/23/24 Procedure(s): CT head/brain wo IV con Accession Number(s): [id number] cc: [facility]; Clifton Stephens MD Report Number: [id number]: Total DLP = 692.00 mGy-cm CLINICAL HISTORY: Post seizure fall CT head without contrast Comparison: None Findings: No intra-axial mass, midline shift, hydrocephalus, or acute hemorrhage. No significant atrophy-like change or white matter disease. Mucosal thickening of the right maxillary sinus and left ethmoid anterior air cells. The orbits are unremarkable. Scalp swelling in the right frontoparietal area. There is no acute fracture. IMPRESSION: 1. No acute intracranial findings. 2. Right parietal scalp swelling. This document has been electronically signed by: Dev Baker MD on 09/23/2024 02:52:05 Dictated By: Dev Baker MD Signed By: <Electronically signed by Dev Baker MD in OV> 09/23/24252 DD/ 1 TD/TT: 09/23/24251 Coremaker: [facility] External Provider IMG CT PROCEDURES Final Result * High Sensitivity Troponin I (09/23/2024 1:03 AM EDT) [facility] TROPONIN I HIGH SENSITIVITY <2.7 <3.5 - 17.0 ng/L [facility] Comment:The Small high sens itivity Troponin-I results should beused in conjunction with other diagnostic information suchas ECG, clinical observations and information, and patientsymptoms to aid in the diagnosis of CA. 09/23/2024 1:03 AM EDT 09/23/2024 1:06 AM EDT Generic External Data Provider LAB BLOOD ORDERAB LES Final Result [facility] [address] [place] [phone] * (ABNORMAL) CBC auto differential (09/23/2024 1:03 AM EDT) Only the most recent of2 resultswithin the time period is included. [facility] White Blood Count 11.4(H) 4.8 - 10.8 X10*3/uL [facility] Red Blood Count 4.23 4.20 - 5.50 X10*6/uL [facility] Hemoglobin 12.9 12.0 - 16.0 g/dl [facility] Hematocrit 37.6 37.0 - 47.0 % [facility] Mean Corpuscular Volume 88.9 80.0 - 98.0 fL [facility] Mean Corpuscular Hemoglobin 30.5 27.0 - 33.0 pg [facility] Mean Corpuscular HGB Conc 34.3 31.0 - 35.0 g/dl [facility] Red Cell Distribution Width 12.1 11.0 - 16.0 % [facility] Platelet Count 257 160 - 400 X10*3/uL [facility] Mean Platelet Volume 8.9(L) 9.4 - 12.3 fL [facility] Neutrophils Percent Auto 66.3 45 - 73 % [facility] Imm Gran Pct Auto 0.4 0.0 - 0.4 % [facility] Lymphocytes Percent Auto 26.0 20 - 40 % [facility] Monocytes Percent Auto 5.4 2 - 11 % [facility] Eosinophils Percent Auto 1.5 0 - 4 % [facility] Basophils Percent Auto 0.4 0 - 2 % [facility] NRBC Pct Auto 0.0 0.0 - 0.2 /100WBC [facility] Neutrophils Absolute Auto 7.6 2.0 - 8.3 x10*3/uL [facility] Imm Gran Abs Auto 0.05(H) 0.00 - 0.03 X10*3/uL [facility] Lymphocytes Absolute Auto 3.0 1.2 - 4.9 X10*3/uL [facility] Monocytes Absolute Auto 0.6 0.1 - 1.2 X10*3/uL [facility] Eosinophils Absolute Auto 0.2 0.0 - 0.4 X10*3/uL [facility] Basophils Absolute Auto 0.0 0.0 - 0.2 X10*3/uL [facility] NRBC Abs Auto 0.000 0.0 - 0.012 X10*3/uL [facility] 09/23/2024 1:03 AM EDT 09/23/2024 1:06 AM EDT us Generic External Data Provider LAB BLOOD ORDERAB LES Final Result [facility] [address] [place] [address] [phone] * (ABNORMAL) Comprehensive Metabolic Panel (09/23/2024 1:03 AM EDT) Only the most recent of2 resultswithin the time period is included. Sodium 137 135 - 145 mmol/L [facility] Potassium 3.6 3.3 - 5.1 mmol/L [facility] Chloride 105 96 - 108 mmol/L [facility] Carbon Dioxide 20(L) 22 - 29 mmol/L [facility] Anion Gap 16 12 - 20 [facility] Urea Nitrogen (BUN) 9 9 - 16 mg/dL [facility] Creatinine, Serum 0.67 0.5 - 1.4 mg/dL [facility] Creatinine Clr Calc Pharmacy 113.6 [facility] Comment:Provided height and weight: 157.48 cm,89.5 kg.eGFR (calculated from the MDRD study equation) and eCrCl(calculated from the Cockcroft-Gault equation) are based ondifferent parameters and may not yield comparable results.If eCrCl result is absurd, please check patient'sheight/weight. Estimated Glomerular Filt Rate >60 [facility] Comment:Chronic Kidney Disea se: Estimated GFR < 60 mL/min/1.00m3Gdsgcz Kidney Disease: Estimated GFR < 15 mL/min/1.73m2 Glucose 140(H) 60 - 115 mg/dL [facility] Calcium 9.6 8.4 - 10.2 mg/dL [facility] Bilirubin, Total 0.3 0.0 - 1.0 mg/dL [facility] Aspartate Amino Transferase 16 5 - 31 U/L [facility] Alanine Aminotransferase 12 0 - 31 U/L [facility] Total Protein 7.2 6.5 - 8.0 g/dL [facility] Albumin Level 4.2 3.5 - 5.0 g/dL [facility] Alkaline Phosphatase 63 39 - 117 U/L [facility] 09/23/2024 1:03 AM EDT 09/23/2024 1:06 AM EDT us Generic External Data Provider LAB BLOOD ORDERAB LES Final Result Performing Organization Address [facility] Co de Phone Number [facility] [address] [place] [phone] * Albumin, Random Urine W/Creatinine (08/03/2024 11:38 AM EST) Creatinine, Urine 66.84 mg/dL [facility] Microalbumin Urine 19.0 mg/L [facility] Microalbum Creatinine Ratio Ur 28.4 <30 ug/mg cr [facility] Comment:Albumin/Creatinine R atio Reference Ranges: Normal: < 30 ug/mg creatinine Microalbuminuria: 30 - 300 ug/mg creatinineClinical Albuminuria: > 300 ug/mg creatinine Urine (Urine, Random) 08/03/2024 11:38 AM EST 08/03/2024 12:58 PM EST us Alex Davila MD LAB URINE ORDERABLES Final Resul t Performing Organization Address [facility] Co de Phone Number [facility] [address] [place] [phone] * (ABNORMAL) Lipid Panel, Standard (08/03/2024 11:38 AM EST) Triglycerides 299(H) <150 mg/dL [facility] Comment:Desirable Triglyceri de: less than 150 mg/dLBorderline High Triglyceride 150-199 mg/dLHigh Triglyceride: 200-499 mg/dLVery High Triglyceride: greater than or equal to 5OO mg/dL Cholesterol 178 <200 mg/dL [facility] Comment:Desirable Cholestero l: less than 200 mg/dLBorderline High Cholesterol: 200-239 mg/dLHigh Cholesterol: greater than 239 mg/dL LDL Cholesterol Calculated 77 <100 mg/dL [facility] Comment:Desirable LDL: less than 100 mg/dLNear Optimal/Above Optimal LDL: 110- 129 mg/dLBorderline High LDL: 130-159 mg/dLHigh LDL: 160-189 mg/dLVery High LDL: greater than or equal to 190 mg/dL HDL Cholesterol 42 >40 mg/dL [facility] Comment:Desirable HDL: great er than 40 mg/dL Note: This HDL assay may give artificially low results in patients with liver disease. Blood Venous blood specimen / Unknown 08/03/2024 11:38 AM EST 08/03/2024 1:31 PM EST us Alex Davila MD LAB BLOOD ORDERABLES Final Resul t [facility] [address] [place] [phone] * (ABNORMAL) POCT HGB A1C (08/03/2024 [...] Final Result from Last 3 Months Insurance [facility]3 Care Teams Pediatric Rn Relationship Specialty Start Date End Date Name, MD Alex [address] [place] [phone] PCP - General Internal Medicine 08/03/24
== END 2024-10-18 08:47 | disposition home or self-care (01) ==
LOC: HO.MAMMO 08:46
PROVIDERS: PCP Internal Medicine Geriatric Medicine; Visit Provider Internal Medicine Geriatric Medicine
DX: Z12.31 Encounter for screening mammogram for malignant neoplasm of breast (principal)
CPT/HCPCS: 77063; 77067

== ENCOUNTER → 2024-10-18 09:30 | Outpatient (BNV) | payer MEDICAID, SELFPAY | PROVIDERS: PCP Internal Medicine Geriatric Medicine; Visit Provider Internal Medicine | DX: Z12.31 Encounter for screening mammogram for malignant neoplasm of breast (principal) | CPT/HCPCS: 77063; 77067 ==

== ENCOUNTER 2024-12-14 08:11 | Outpatient (REF) | payer MEDICAID, SELFPAY ==
--- NOTE | 2024-12-14 | EEG_ITS ---
Description: This is a routine waking EEG using the 10-20 electrode placement system. The waking background activity consists of low-voltage fast frequency seen diffusely intermixed with low-voltage intermittent posterior 10 hertz alpha frequency.? Photic stimulation is without activation.? Hyperventilation produces no change in the background activity. No focal, lateralizing or paroxysmal discharges are seen. Impression: This waking EEG is within normal limits MTDD
--- OUTSIDE RECORDS SUMMARY | 2024-12-14 08:14 | XMS_ITS | Clinical Summary ---
Author Organization [employer] Address [address] [facility] [address] [place] [address] Care Team Providers Care Mental Health Assistant Name Role Phone NameAlex MD Primary Care Provider [phone] Allergies No known active allergies Medications levETIRAcetam (Keppra) 500 MG tabletIndicatio ns:Seizure disorder (CMS/HCC) Take 1 tablet (500 mg) by mouth 2 times daily. 60 tablet 11 08/03/2024 Active melatonin 5 MG tablet Take 1 tablet (5 mg) by mouth if needed at bedtime (insomnia). 30 tablet 11 08/03/2024 Active Active Problems Problem Noted Date Diagnosed Date Light cigarette smoker (1-9 cigs/day) 08/03/2024 Knee pain 08/03/2024 Class 1 obesity 08/03/2024 Amblyopia 08/03/2024 Seizure disorder 08/03/2024 Prediabetes 02/09/2021 Encounters Date Type Department Care Team Description 11/14/2024 Telephone [facility] [address] [place] [phone] Rhoda Cadena [place] january recalls 10/09/2024 10:45 AM EDT Office Visit [facility] [address] [place] [phone] Alex Davila MD Seizure disorder (CMS/HCC) (Primary Dx); Prediabetes 10/09/2024 Travel 10/06/2024 Telephone [facility] [address] [place] [address] Alex Davila MD CHART PREP 09/23/2024 Orders Only [facility] External Provider, [facility] from Last 3 Months Immunizations Immunization Administration [...] t he electric, gas, oil or water [employer] threatened to shut off services in your [...] 75 10/09/2024 10:36 AM EDT Temperature 36.6 C (97.8 F) 10/09/2024 10:36 AM EDT Respiratory Rate 12 10/09/2024 10:36 AM EDT Oxygen Saturation 98% 10/09/2024 10:36 AM EDT Inhaled Oxygen Concentration - - Weight 82.4 kg (181 lb 9.6 oz) 10/09/2024 10:36 AM EDT Height 157.5 cm (5' 2 ) 10/09/2024 10:36 AM EDT Body Mass Index 33.22 10/09/2024 10:36 AM EDT Plan of Treatment Upcoming Encounters Date Type Department Care Team (Late st Contact Info) Description 02/21/2025 9:45 AM EDT Office Visit [facility] [address] [place], [place] [phone] Name, MD Alex [address] [place] [address] Health Maintenance Due Date Last Done Comments HIV Screening 1980 Family Planning (PISQ) 1997 HPV Vaccines (1 - 3-dose series) 1997 Hepatitis C Screening 01/08/2000 Hepatitis B Vaccines (1 of 3 - 19+ 3-dose series) 2001 Pneumococcal Vaccine: Pediatrics (0 to 5 Years) and At-Risk Patients (6 to 49) Years (1 of 2 - PCV) 2001 Pap Smear 2003 Cervical Cancer Screening 01/08/2012 HPV/Cotest 01/08/2012 COVID-19 Vaccine (2023-2 5 season) 2024 05/02/2022, 01/23/2021, 12/25/2020 Influenza Vaccine (#1) 2025 , 05/12/2021 SDOH Screening 07/27/2025 07/27/2024 Alcohol/Substance Use Screening 08/03/2025 08/03/2024 Depression Screening 08/03/2025 08/03/2024, 08/03/2024 Diabetes: Hemoglobin A1C 08/03/2025 025, 02/06/2021 Disability Screening 10/09/2025 10/09/2024 Tobacco Screening 10/09/2025 10/09/2024 Mammogram 10/18/2026 10/18/2024 Lipid Panel 08/03/2029 08/03/2024, 02/06/2021 Zoster Vaccines (1 of 2) 01/08/2032 DTaP/Tdap/Td Vaccines (2 - T d or Tdap) 08/03/2034 08/03/2024, 12/27/2018 RSV Patients and Patients Aged 60 years or older (1 - 1-dose 75+ series) 2057 HIB Vaccines Aged Out No longer eligi [...] Procedure Name Priority Date/Time Associated Diagnosis Comments BI MAMMOGRAM SCREENING TOMOSYNTHESIS BILATERAL Routine 10/18/2024 8:55 AM EDT Encounter for screening mammogram for malignant neoplasm of breast CT HEAD WO CONTRAST Routine 09/23/2024 2 :52 AM EDT COMPREHENSIVE METABOLIC PANEL Routine 09/23/2024 1:03 AM EDT HIGH SENSITIVITY TROPONIN I Routine 09/23/2024 1:03 AM EDT CBC WITH AUTO DIFFERENTIAL Routine 09/23/2024 1:03 AM EDT LIPID PANEL, STANDARD Routine 08/03/2024 11:38 AM EST Prediabetes POCT GLYCATED HEMOGLOBIN, TOTAL Routine 08/03/2024 10:42 AM EST Prediabetes from Last 3 Months or Most Recently Relevant to Health Maintenance Results * BI Mammogram Screening Tomosynthesis Bilateral (10/18/2024 8:55 AM EDT) Anatomical Region Laterality Modality Breast Bilateral Mammography 10/18/2024 8:55 AM EDT Narrative 10/25/2024 5:10 PM EDT [facility] [address] [place] [address] Mammography Report Signed Patient: Hermelindo Lebron MR#: [id number] : 1980 Acct:[id number] Age/Sex: 44 / F ADM Date: 10/18/24 Loc: .MAMMO Attending Dr: Alex Davila MD Ordering Physician: Alex Davila MD Results: 1Negative Date of Service: 10/18/24 Follow Up: 1 Year From [facility] ina Mammogram Procedure(s): MM tomosynthesis screening BI Accession Number(s): [id number] cc: Alex Davila MD EXAMINATION: MM SCREENING DIGITAL BREAST TOMOSYNTHESIS, BILATERAL CLINICAL INFORMATION: Screening. Asymptomatic. COMPARISON: Mammography: Baseline. TECHNIQUE: Digital breast mammography with tomosynthesis is performed in both the craniocaudal and mediolateral oblique views along with computer-aided detection (CAD). FINDINGS: The breasts are heterogeneously dense, which may obscure small masses (ACR BI-RADS breast composition Category c). There are no significant masses, abnormal calcifications, or other abnormalities. MM/MM tomosynthesis screening BI IMPRESSION: No mammographic evidence of malignancy. ASSESSMENT: BI-RADS BI-RADS 1 - Negative RECOMMENDATION: Routine annual mammography screening. 1 year F/U This examination should not preclude the clinical evaluation of a suspicious palpable abnormality. This patient's information was entered into a reminder system with a target due date for their next mammogram. Electronically signed by: Debbi Francis DO 10/25/2024 05:07 PM EDT Dictated By: Debbi Francis DO Signed By: <Electronically signed by Debbi Francis DO in OV> 10/25/241706 DD/ TD/TT: 10/18/24 0917 Web Mobile Designer: Procedure Note Donotuseinterpreter, Image - 10/25/2024 [facility] [address] [place] [address] Mammography Report Signed Patient: Griffin Lebron#: M [id number] : 1980Acct:[id number] Age/Sex: 44 / FADM Date: 10/18/24 Loc: HO.MAMMO Attending Dr: Alex Davila MD Ordering Physician: Alex Davila MDResults: 1Negative Date of Service: 10/18/24Follow Up: 1 Year From Orig inal Mammogram Procedure(s): MM tomosynthesis screening BI Accession Number(s): [id number] cc: Alex Davila MD EXAMINATION: MM SCREENING DIGITAL BREAST TOMOSYNTHESIS, BILATERAL CLINICAL INFORMATION: Screening. Asymptomatic. COMPARISON: Mammography: Baseline. TECHNIQUE: Digital breast mammography with tomosynthesis is performed in both the craniocaudal and mediolateral oblique views along with computer-aided detection (CAD). FINDINGS: The breasts are heterogeneously dense, which may obscure small masses (ACR BI-RADS breast composition Category c). There are no significant masses, abnormal calcifications, or other abnormalities. MM/MM tomosynthesis screening BI IMPRESSION: No mammographic evidence of malignancy. ASSESSMENT: BI-RADS BI-RADS 1 - Negative RECOMMENDATION: Routine annual mammography screening. 1 year F/U This examination should not preclude the clinical evaluation of a suspicious palpable abnormality. This patient's information was entered into a reminder system with a target due date for their next mammogram. Electronically signed by: Debbi Francis DO 10/25/2024 05:07 PM EDT RP Dictated By: Debbi Francis DO Signed By: <Electronically signed by Debbi Francis DO in OV> 10/25/241706 DD/ 4 TD/TT: 10/18/2417 Web Mobile Designer: us Alex Davila MD IMG BI PROCEDURES Final Result * CT Head w/o Contrast (09/23/2024 2:52 AM EDT) Anatomical Region Laterality Modality Head, Neck Computed Tomogra phy 09/23/2024 2:52 AM EDT Narrative 09/23/2024 2:53 AM EDT [address] [address] [address] Scan Report Signed Patient: Hermelindo Lebron MR#: M [id number] : 1980 Acct:[id number] Age/Sex: 44 / F ADM Date: 09/23/24 Loc: .ED Attending Dr: Ordering Physician: Clifton Stephens MD Date of Service: 09/23/24 Procedure(s): CT head/brain wo IV con Accession Number(s): [id number] cc: [facility]; Clifton Stephens MD Report Number: [id number]: Total DLP = 692.00 mGy-cm CLINICAL HISTORY: [...] in OV> 09/23/24252 DD/ 1 TD/TT: 09/23/24251 Web Mobile Designer: Procedure Note Donotuseinterpreter, Image - 09/23/[address] [place] [address] CT Scan Report Signed Patient: Griffin Lebron#: M [id number] : 1980Acct:[id number] Age/Sex: 44 / FADM Date: 09/23/24 Loc: HO.ED Attending Dr: Ordering Physician: Clifton Stephens MD Date of Service: 09/23/24 Procedure(s): CT head/brain wo IV con Accession Number(s): [id number] cc: [facility]; Clifton Stephens MD Report Number: [id number]: Total DLP = 692.00 mGy-cm CLINICAL HISTORY: [...] in OV> 09/23/24252 DD/ 1 TD/TT: 09/23/24251 Web Mobile Designer: [facility] External Provider IMG CT PROCEDURES Final Result * High Sensitivity Troponin I (09/23/2024 1:03 AM EDT) TROPONIN I HIGH SENSITIVITY <2.7 <3.5 - 17.0 ng/L [facility] Comment:The Small high sens itivity Troponin-I results should beused in conjunction with other diagnostic information suchas ECG, clinical observations and information, and patientsymptoms to aid in the diagnosis of IA. 09/23/2024 1:03 AM EDT 09/23/2024 1:06 AM EDT us Generic External Data Provider LAB BLOOD ORDERAB LES Final Result [facility] [address] [place] [address] [phone] * (ABNORMAL) CBC auto differential (09/23/2024 1:03 AM EDT) White Blood Count 11.4(H) 4.8 - 10.8 X10*3/uL [facility] Red Blood Count 4.23 4.20 - 5.50 X10*6/uL [facility] Hemoglobin 12.9 12.0 - 16.0 g/dl [facility] Hematocrit 37.6 37.0 - 47.0 % [facility] Mean Corpuscular Volume 88.9 80.0 - 98.0 fL [facility] Mean Corpuscular Hemoglobin 30.5 27.0 - 33.0 pg [facility] Mean Corpuscular HGB Conc 34.3 31.0 - 35.0 g/dl [facility] Red Cell Distribution Width 12.1 11.0 - 16.0 % [facility] Platelet Count 257 160 - 400 X10*3/uL [facility] Mean Platelet Volume 8.9(L) 9.4 - 12.3 fL [facility] Neutrophils Percent Auto 66.3 45 - 73 % [facility] Imm Gran Pct Auto 0.4 0.0 - 0.4 % [facility] Lymphocytes Percent Auto 26.0 20 - 40 % [facility] Monocytes Percent Auto 5.4 2 - 11 % [facility] Eosinophils Percent Auto 1.5 0 - 4 % [facility] Basophils Percent Auto 0.4 0 - 2 % [facility] NRBC Pct Auto 0.0 0.0 - 0.2 /100WBC [facility] Neutrophils Absolute Auto 7.6 2.0 - 8.3 x10*3/uL [facility] Imm Gran Abs Auto 0.05(H) 0.00 - 0.03 X10*3/uL [facility] Lymphocytes Absolute Auto 3.0 1.2 - 4.9 X10*3/uL [facility] Monocytes Absolute Auto 0.6 0.1 - 1.2 X10*3/uL [facility] Eosinophils Absolute Auto 0.2 0.0 - 0.4 X10*3/uL [facility] Basophils Absolute Auto 0.0 0.0 - 0.2 X10*3/uL [facility] NRBC Abs Auto 0.000 0.0 - 0.012 X10*3/uL [facility] 09/23/2024 1:03 AM EDT 09/23/2024 1:06 AM EDT us Generic External Data Provider LAB BLOOD ORDERAB LES Final Result [facility] [address] [place] [phone] [phone] * (ABNORMAL) Comprehensive Metabolic Panel (09/23/2024 1:03 AM EDT) Sodium 137 135 - 145 mmol/L [facility] Potassium 3.6 3.3 - 5.1 mmol/L [facility] Chloride 105 96 - 108 mmol/L [facility] Carbon Dioxide 20(L) 22 - 29 mmol/L [facility] Anion Gap 16 12 - 20 [facility] Urea Nitrogen (BUN) 9 9 - 16 mg/dL [facility] Creatinine, Serum 0.67 0.5 - 1.4 mg/dL [facility] Creatinine Clr Calc Pharmacy 113.6 [facility] Comment:Provided height and weight: 157.48 cm,89.5 kg.eGFR (calculated from the MDRD study equation) and eCrCl(calculated from the Cockcroft-Gault equation) are based ondifferent parameters and may not yield comparable results.If eCrCl result is absurd, please check patient'sheight/weight. Estimated Glomerular Filt Rate >60 [facility] Comment:Chronic Kidney Disea se: Estimated GFR < 60 mL/min/[id number] Kidney Disease: Estimated GFR < 15 mL/min/1.73m2 Glucose 140(H) 60 - 115 mg/dL [facility] Calcium 9.6 8.4 - 10.2 mg/dL [facility] Bilirubin, Total 0.3 0.0 - 1.0 mg/dL [facility] Aspartate Amino Transferase 16 5 - 31 U/L [facility] Alanine Aminotransferase 12 0 - 31 U/L [facility] Total Protein 7.2 6.5 - 8.0 g/dL [facility] Albumin Level 4.2 3.5 - 5.0 g/dL [facility] Alkaline Phosphatase 63 39 - 117 U/L [facility] 09/23/2024 1:03 AM EDT 09/23/2024 1:06 AM EDT us Generic External Data Provider LAB BLOOD ORDERAB LES Final Result Performing Organization Address City/State/[facility] Co de Phone Number [facility] [address] [place] [phone] * (ABNORMAL) Lipid Panel, Standard (08/03/2024 11:38 AM EST) Triglycerides 299(H) <150 mg/dL [facility] Comment:Desirable Triglyceri de: less than 150 mg/dLBorderline High Triglyceride 150-199 mg/dLHigh Triglyceride: 200-499 mg/dLVery High Triglyceride: greater than or equal to 5OO mg/dL Cholesterol 178 <200 mg/dL [facility] Comment:Desirable Cholestero l: less than 200 mg/dLBorderline High Cholesterol: 200-239 mg/dLHigh Cholesterol: greater than 239 mg/dL LDL Cholesterol Calculated 77 <100 mg/dL [facility] Comment:Desirable LDL: less than 100 mg/dLNear Optimal/Above Optimal LDL: 110- 129 mg/dLBorderline High LDL: 130-159 mg/dLHigh LDL: 160-189 mg/dLVery High LDL: greater than or equal to 190 mg/dL HDL Cholesterol 42 >40 mg/dL [facility] Comment:Desirable HDL: great er than 40 mg/dL Note: This HDL assay may give artificially low results in patients with liver disease. Blood Venous blood specimen / Unknown 08/03/2024 11:38 AM EST 08/03/2024 1:31 PM EST us Alex Davila MD LAB BLOOD ORDERABLES Final Resul t [facility] [address] [place] [phone] [phone] * (ABNORMAL) POCT HGB A1C (08/03/2024 10:42 AM EST) Hemoglobin A1C 6.2(A) 4.0 - 6.0 % QC Media Lot # [id number] Lot# Expiration Date Blood 08/03/2024 10:4 2 AM EST Alex Davila MD POINT OF CARE TEST ENTER/EDIT OR DERABLES Final Result from Last 3 Months or Most Recently Relevant to Health Maintenance Insurance [facility] C3 Care Teams Mental Health Assistant Relationship Specialty Start Date End Date Name, MD Alex [address] [place] [address] PCP - General Internal Medicine 08/03/24
== END 2024-12-14 08:12 | disposition home or self-care (01) ==
LOC: HO.NEURO 08:11
PROVIDERS: PCP Internal Medicine Geriatric Medicine; Visit Provider Psychiatry & Neurology Neurology
DX: G40.909 Epilepsy, unspecified, not intractable, without status epilepticus (principal)
CPT/HCPCS: 95816; 95819

== ENCOUNTER → 2024-12-14 08:11 | Outpatient (BNV) | payer MEDICAID, SELFPAY | PROVIDERS: PCP Internal Medicine Geriatric Medicine; Visit Provider Psychiatry & Neurology Neurology | DX: R56.9 Unspecified convulsions (principal) | CPT/HCPCS: 95816 ==

== ENCOUNTER 2025-02-21 10:16 | Outpatient (REF) | payer MEDICAID, SELFPAY ==
--- OUTSIDE RECORDS SUMMARY | 2025-02-21 09:45 | XMS_ITS | Encounter Summary ---
Author Organization [employer] Address [address] [place] [address] Care Team Providers Care Hand Spring Repairer Helper Name Role Phone Name, Alex SALEH Primary Care Provider [phone] Reason for Visit * Reason Comments Follow-up Encounter Details Date Type Department Care Team ([facility] st Contact Info) Description 02/21/2025 9:45 AM EDT Office Visit [facility] [address] [place] [address] Name, MD Alex [address] [place] [address] Seizure disorder (CMS/HCC) (Primary Dx); Prediabetes; Encounter for immunization Social History Tobacco Use Types Packs/Day Years [...] Sign Reading Time Taken Comments Blood Pressure 108/58 02/21/2025 9:42 AM EDT Pulse 88 02/21/2025 9:42 AM EDT Temperature 36.6 C (97.8 F) 02/21/2025 9:42 AM EDT Respiratory Rate 18 02/21/2025 9:42 AM EDT Oxygen Saturation 97% 02/21/2025 9:42 AM EDT Inhaled Oxygen Concentration - - Weight 80.6 kg (177 lb 9.6 oz) 02/21/2025 9:42 A M EDT Height 157.5 cm (5' 2 ) 02/21/2025 9:42 AM EDT Body Mass Index 32.48 02/21/2025 9:42 AM EDT documented in this encounter Progress Notes * Alex Davila MD - 02/21/2025 9:45 AM EDT Subjective Patient ID: Hermelindo Kaur is a 45 y.o. female who presents for Follow-up. Patient comes for follow-up visit and she is doing well. She is using Keppra as prescribed. She denies any seizures since the last time I saw her. She is now following with [facility]. She recently had a normal EEG as well. She continues to smoke marijuana occasionally. She is not drinking alcohol or using illicit drugs and she is congratulated. She is prediabetic. I have recommended to recheck her fasting blood work and hemoglobin A1c. She agreed with the flu vaccination today. Review of Systems Constitutional: Negative for chills and fever. HENT: Negative for sore throat. Respiratory: Negative for cough, shortness of breath and wheezing. Cardiovascular: Negative for chest pain, palpitations and leg swelling. Gastrointestinal: Negative for abdominal pain. Neurological: Negative for seizures. Objective Vitals: 02/21/25 0942 BP: 108/58 BP Location: Left arm Patient Position: Sitting BP Cuff Size: Adult Pulse: 88 Resp: 18 Temp: 97.8 ??F (36.6 ??C) TempSrc: Temporal SpO2: 97% Weight: 177 lb 9.6 oz (80.6 kg) Height: 5' 2 (1.575 m) Physical Exam Constitutional: Appearance: Normal appearance. Cardiovascular: Rate and Rhythm: Normal rate and regular rhythm. Heart sounds: No murmur heard. No gallop. Pulmonary: Effort: Pulmonary effort is normal. No respiratory distress. Breath sounds: Normal breath sounds. No wheezing. Musculoskeletal: Right lower leg: No edema. Left lower leg: No edema. Neurological: General: No focal deficit present. Mental Status: She is alert. Motor: No weakness. Assessment/Plan Diagnoses and all orders for this visit: Seizure disorder (CMS/HCC) Comments: Continue using her Keppra. Avoid alcohol and illicit drugs. Continue following with [facility] neurolog[facility]. Prediabetes Comments: Check blood work listed below. Orders: - Basic Metabolic Panel; Future - Hemoglobin A1c; Future Encounter for immunization - FLU VACCINE TRIVALENT [phone] (Fluarix) 6 mo + documented in this encounter Plan of Treatment Scheduled Orders Name Type Priority Associated Diagnoses Orde r Schedule Basic Metabolic Panel Lab Routine Prediabetes Expected: 02/21/2025 (Approximate), Expires: 02/21/2026 Hemoglobin A1c Lab Routine Prediabetes Expected: 02/21/2025 (Approximate), Expires: 02/21/2026 documented as of this encounter Visit Diagnoses Diagnosis Seizure disorder (CMS/HCC)- Primary Unspecified epilepsy without mention of intractable epilepsy Prediabetes Other abnormal glucose Encounter for immunization documented in this encounter Additional Health Concerns Assessment Noted Time PHQ-9 Depression Total Score: 6 08/04/19 11:13 AM EST documented as of this encounter Care Teams Hand Spring Repairer Helper Relationship Specialty Start Date End Date Name, MD Alex [address] [place] [address] PCP - General Internal Medicine 08/03/24 documented as of this encounter
--- OUTSIDE RECORDS SUMMARY | 2025-02-21 12:38 | XMS_ITS | Clinical Summary ---
Author Organization [employer] Address [address] [place] [address] Care Team Providers Care Toolroom Clerk Name Role Phone Name, Alex SALEH Primary Care Provider [phone] Allergies No known active allergies Medications * This document contains information received from the source organization and may not represent a complete record from that organization. levETIRAcetam (Keppra) 500 MG tabletIndicatio ns:Seizure disorder (CMS/HCC) Take 1 tablet (500 mg) by mouth 2 times daily. 60 tablet 11 08/03/2024 Active melatonin 5 MG tablet Take 1 tablet (5 mg) by mouth if needed at bedtime (insomnia). 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 Date Type Department Care Team Description 02/21/2025 9:45 AM EDT Office Visit [facility] [address] [place] [phone] Name, MD Alex Seizure disorder (CMS/HCC) (Primary Dx); Prediabetes; Encounter for immunization 02/21/2025 Travel 01/17/2025 10:00 AM EDT Office Visit [facility] [address] [place] [address] Richard Newsome MD Substance use disorder (Primary Dx) 01/17/2025 Travel 01/12/2025 Patient Outreach [facility] [address] [place] [address] Sher Gilmore [facility] Supports 01/01/2025 Patient Outreach [facility] [address] [place] [address] Kin Robison Recovery Supports 12/21/2024 Patient Outreach [facility] [address] [place] [address] Dipesh Carr Recovery Supports 12/19/2024 Patient Outreach [facility] [address], [place] [phone] Teja Patel Recovery Supports from Last 3 Months Immunizations Immunization Administration Dates Next Due Influenza injectable quadrivalent preservative f ree 05/12/2021 Influenza, seasonal, injectable, preservative fr ee 02/21/2025,08/03/2024 TD (adult), 2 Lf tetanus tox oid, [...] Mass Index 32.48 02/21/2025 9:42 AM EDT Plan of Treatment Health Maintenance [...] Cancer Screening 01/08/2012 HPV/Cotest 01/08/2012 COVID-19 Vaccine (4 - 2025-2 6 season) 2025 05/02/2022, 01/23/2021, 12/25/2020 SDOH Screening 07/27/2025 07/27/2024 Alcohol/Substance Use Screening 08/03/2025 08/03/2024 Depression Screening 08/03/2025 08/03/2024, 08/03/2024 Diabetes: Hemoglobin A1C 08/03/2025 025, 02/06/2021 Disability Screening 10/09/2025 10/09/2024 Tobacco Screening 02/21/2026 02/21/2025 Mammogram 10/18/2026 10/18/2024 Lipid Panel 08/03/2029 08/03/2024, 02/06/2021 Zoster Vaccines (1 of 2) 01/08/2032 DTaP/Tdap/Td Vaccines (2 - T d or Tdap) 08/03/2034 08/03/2024, 12/27/2018 RSV Patients and Patients Aged 60 years or older (1 - 1-dose 75+ series) 2057 Influenza Vaccine Completed 02/21/2025, 08/03/2024, 05/12/2021 HIB Vaccines Aged Out No [...] screening mammogram for malignant neoplasm of breast LIPID PANEL, STANDARD Routine 08/03/2024 11:38 AM EST Prediabetes POCT GLYCATED HEMOGLOBIN, TOTAL Routine 08/03/2024 10:42 AM EST Prediabetes from Last 3 Months or Most Recently Relevant to Health Maintenance Results * BI Mammogram Screening Tomosynthesis Bilateral (10/18/2024 8:55 AM EDT) Anatomical Region Laterality Modality Breast Bilateral Mammography 10/18/2024 8:55 AM EDT Narrative 10/25/2024 5:10 PM EDT [facility] [address] [place] [address] Mammography Report Signed Patient: Hermelindo Lebron MR#: [id number] : 1980 Acct:[id number] Age/Sex: 44 / F ADM Date: 10/18/24 Loc: HO.MAMMO Attending Dr: Alex Davila MD Ordering Physician: Alex Davila MD Results: 1Negative Date of Service: 10/18/24 Follow Up: 1 Year From Orig ina Mammogram Procedure(s): MM tomosynthesis screening BI Accession Number(s): [id number] cc: Alex Davila MD EXAMINATION: MM SCREENING [...] DO in OV> 10/25/241706 DD/ 4 TD/TT: 10/18/24916 Varnish Blender: Procedure Note Donotuseinterpreter, Image - 10/25/20[facility] [address] [place] [address] Mammography Report Signed Patient: Griffin Lebron#: [id number] : 1980Acct:[id number] Age/Sex: 44 / FADM Date: 10/18/24 Loc: HO.MAMMO Attending Dr: Alex Davila MD Ordering Physician: Alex Davilaults: 1Negative Date of Service: 10/18/24Follow Up: 1 Year From Orig inal Mammogram Procedure(s): MM tomosynthesis screening BI Accession Number(s): [id number] cc: Alex Davila MD EXAMINATION: MM SCREENING [...] DO in OV> 10/25/241706 DD/ 4 TD/TT: 10/18/24916 Varnish Blender: us Alex Davila MD IMG BI PROCEDURES Final Result * (ABNORMAL) Lipid Panel, Standard (08/03/2024 11:38 AM EST) Triglycerides 299(H) <150 mg/dL [facility] Comment:Desirable Triglyceri de: less than 150 mg/dLBorderline High Triglyceride 150-199 mg/dLHigh Triglyceride: 200-499 mg/dLVery High Triglyceride: greater than or equal to 5OO mg/dL Cholesterol 178 <200 mg/dL [facility] Comment:Desirable Cholestero l: less than 200 mg/dLBorderline High Cholesterol: 200-239 mg/dLHigh Cholesterol: greater than 239 mg/dL LDL Cholesterol Calculated 77 <100 mg/dL [facility] Comment:Desirable LDL: less than 100 mg/dLNear Optimal/Above Optimal LDL: 110- 129 mg/dLBorderline High LDL: 130-159 mg/dLHigh LDL: 160-189 mg/dLVery High LDL: greater than or equal to 190 mg/dL HDL Cholesterol 42 >40 mg/dL [facility] Comment:Desirable HDL: great er than 40 mg/dL Note: This HDL assay may give artificially low results in patients with liver disease. Blood Venous blood specimen / Unknown 08/03/2024 11:38 AM EST 08/03/2024 1:31 PM EST us Alex Davila MD LAB BLOOD ORDERABLES Final Resul t [facility] [address] [place] [phone] * (ABNORMAL) POCT HGB A1C (08/03/2024 10:42 AM EST) Hemoglobin A1C 6.2(A) 4.0 - 6.0 % QC Media Lot # [id number] Lot# Expiration Date [id number] Blood 08/03/2024 10:4 2 AM EST us Alex Davila MD POINT OF CARE TEST ENTER/EDIT OR DERABLES Final Result from Last 3 Months or Most Recently Relevant to Health Maintenance Insurance [facility] C3 Care Teams Toolroom Clerk Relationship Specialty Start Date End Date Name, MD Alex [address] [place] [phone] PCP - General Internal Medicine 08/03/24
--- OUTSIDE RECORDS SUMMARY | 2025-02-21 12:38 | XMS_ITS | Encounter Summary ---
Author Organization [employer] Address [address] [place] [address] Care Team Providers Care Supervisor [employer] Name Role Phone Name, Alex SALEH Primary Care Provider [phone] Encounter Details Date Type Department Care Team (Latest Contact Info) Description 02/21/2025 Travel Social History Tobacco Use Types Packs/Day [...] as of this encounter Plan of Treatment Not on file documented as of this encounter Visit Diagnoses Not on filedocumented in this encounter Additional Health Concerns Assessment Noted Time PHQ-9 Depression Total Score: 6 08/04/19 25 11:13 AM EST documented as of this encounter Care Teams Supervisor [employer] Relationship Specialty Start Date End Date Name, MD Alex [address] [place] [address] PCP - General Internal Medicine 08/03/24 documented as of this encounter
[2025-02-21 12:40] LABS: Hemoglobin A1C 216.8617 umol/L; Total Hemoglobin (HGBA1C) 5769.4346 umol/L
[2025-02-21 14:35] LABS: Anion Gap 12 (12-20); Blood Urea Nitrogen 11 mg/dL (9-16); Calcium 9.4 mg/dL (8.4-10.2); Carbon Dioxide 27 mmol/L (22-29); Chloride 107 mmol/L (96-108); Estimated Glomerular Filt Rate > 60; Potassium 4.5 mmol/L (3.3-5.1); Sodium 141 mmol/L (135-145)
== END 2025-02-21 10:17 | disposition home or self-care (01) ==
LOC: HO.HHCL 10:16
PROVIDERS: PCP Internal Medicine Geriatric Medicine; Visit Provider Internal Medicine Geriatric Medicine
DX: R73.03 Prediabetes (principal)
CPT/HCPCS: 36415; 80048; 83036

== ENCOUNTER 2025-04-23 18:15 | Emergency (ER) | payer MEDICAID, SELFPAY ==
--- NOTE | 2025-04-23 | ECG_ITS ---
Test Reason : seizure Blood Pressure : */* mmHG Vent. Rate : 98 BPM Atrial Rate : 98 BPM P-R Int : 116 ms QRS Dur : 84 ms QT Int : 330 ms P-R-T Axes : 35 33 22 degrees QTcB Int : 421 ms Normal sinus rhythm Normal ECG When compared with ECG of 13-Jan-2024 11:04, No significant change was found Referred By: Generic ED Physician Electronically Signed By: Peng Maldonado
[2025-04-23 18:18] VITALS: BP 111/63; BP 120/78; PULSE 105; PULSE 120; RESP 18; TEMP 36.9; O2SAT 96; BMI 33.7
[2025-04-23 19:04] VITALS: BP 121/73; PULSE 94; RESP 15; TEMP 37; O2SAT 99
[2025-04-23 19:10] LABS: Glucose, Whole Blood 139 mg/dL (60-115)
--- NOTE | 2025-04-23 19:17 | PC.NURSE ---
this rn assumed care of pt, pt resting in stretcher, reports tongue pain at this time, pt noted to have bitten tongue on both sides, bleeding controlled. ekg and labs obtained, vss. nsr on tele. pt a&ox4 at this time
[2025-04-23 19:22] LABS: MANUAL DIFF FLAG NO
[2025-04-23 19:37] LABS: Alanine Aminotransferase 14 U/L (0-31); Albumin Level 5.1 g/dL (3.5-5.0); Alkaline Phosphatase 74 U/L (39-117); Anion Gap 15 (12-20); Aspartate Amino Transferase 16 U/L (5-31); Blood Urea Nitrogen 10 mg/dL (9-16); Calcium 9.9 mg/dL (8.4-10.2); Carbon Dioxide 24 mmol/L (22-29); Chloride 103 mmol/L (96-108); Creatinine Clr Calc Pharmacy 111.9; Estimated Glomerular Filt Rate > 60; Lipase 20 U/L (8-78); Potassium 3.7 mmol/L (3.3-5.1); Sodium 138 mmol/L (135-145); Total Protein 8.5 g/dL (6.5-8.0)
[2025-04-23 19:43] LABS: Magnesium 2.0 mg/dL (1.6-2.6)
[2025-04-23 19:44] LABS: Hematocrit 42.0 % (37.0-47.0); Hemoglobin 14.1 g/dl (12.0-16.0); Imm Gran Abs Auto 0.16 X10*3/uL (0.00-0.03); Imm Gran Pct Auto 1.2 % (0.0-0.4); Lymphocytes Absolute Auto 2.6 X10*3/uL (1.2-4.9); Mean Corpuscular HGB Conc 33.6 g/dl (31.0-35.0); Mean Corpuscular Hemoglobin 30.7 pg (27.0-33.0); Mean Corpuscular Volume 91.3 fL (80.0-98.0); NRBC Abs Auto 0.000 X10*3/uL (0.0-0.012); NRBC Pct Auto 0.0 /100WBC (0.0-0.2); Platelet Count 330 X10*3/uL (160-400); Red Blood Count 4.60 X10*6/uL (4.20-5.50); White Blood Count 13.5 X10*3/uL (4.8-10.8)
[2025-04-23 19:45] LABS: Troponin-I High Sensitivity < 2.7 ng/L (<3.5-17.0)
--- NOTE | 2025-04-23 20:16 | PC.NURSE ---
JULISSA Delgado at bedside placing US guided iv as pt is hard stick, multiple attempts made for lab work
--- OUTSIDE RECORDS SUMMARY | 2025-04-23 20:40 | XMS_ITS | Encounter Summary ---
Author Organization [employer] Address [address] [place] [address] Care Team Providers Care Appliances Sample Maker Name Role Phone Name, Alex SALEH Primary Care Provider [phone] Reason for Visit * Reason Comments [facility] Supp[facility] Encounter Details Date Type Department Care Team ([facility] st Contact Info) Description 04/23/2025 Patient Outreach [facility] [address] [place], [place] [phone] Kin Robison Recovery Supports Social History Tobacco Use Types Packs/Day Years [...] t he electric, gas, oil or water [employer] threatened to shut off services in your [...] as of this encounter Progress Notes * Kin Robison - 04/23/2025 3:32 PM EST I met with Hermelindo desir. Setting: in person at [facility] Recovery Wellness Goals worked on: Social Stability Action taken/next steps: Attended alcohol and drug free activity Additional comments: Kin Robison documented in this encounter Plan of Treatment Not on file documented as of this encounter Visit Diagnoses Not on filedocumented in this encounter Additional Health Concerns Assessment Noted Time PHQ-9 Depression Total Score: 6 08/04/19 25 11:13 AM EST documented as of this encounter Care Teams Appliances Sample Maker Relationship Specialty Start Date End Date Name, MD Alex [address] [place] [address] PCP - General Internal Medicine 08/03/24 documented as of this encounter
--- OUTSIDE RECORDS SUMMARY | 2025-04-23 20:40 | XMS_ITS | Clinical Summary ---
Author Organization [email or web address] Address [address] [place] [address] Care Team Providers Care Tool Chaser Name Role Phone Name, Alex SALEH Primary Care Provider [phone] Allergies No known active allergies Medications * This document contains information received from the source organization and may not represent a complete record from that organization. levETIRAcetam (Keppra) 500 MG tabletIndicatio ns:Seizure disorder (CMS/HCC) (HCC) Take 1 tablet (500 mg) by mouth [...] 1 obesity 08/03/2024 Amblyopia 08/03/2024 Seizure disorder (CMS/HCC) 08/03/2024 Prediabetes 02/09/2021 Encounters Date Type Department Care Team Description 04/23/2025 Patient Outreach [facility] [address] [place] [address] [phone] Kin [facility] Recovery Supports 03/26/2025 Patient Outreach [facility] [address] [place], [place] [phone] Sher Gilmore [facility] Recovery Supports 03/16/2025 Patient Outreach [facility] [address] [place], [place] [phone] Kd Acuña [facility] Recovery Supports 02/21/2025 9:45 AM EDT Office Visit [facility] [address] [place] [address] Name, MD Alex Seizure disorder ([facility]) (Primary Dx); Prediabetes; Encounter for immunization 02/21/2025 Travel from Last 3 Months Immunizations Immunization Administration [...] Cancer Screening 01/08/2012 HPV/Cotest 01/08/2012 COVID-19 Vaccine ( - 2024-2 6 season) 2025 05/02/2022, 01/23/2021, 12/25/2020 SDOH Screening 07/27/2025 07/27/2024 Alcohol/Substance Use Screening 08/03/2025 08/03/2024 Depression Screening 08/03/2025 08/03/2024, 08/03/2024 Disability Screening 10/09/2025 10/09/2024 Diabetes: Hemoglobin A1C 02/21/2026 025, 08/03/2024, 02/06/2021 Tobacco Screening 02/21/2026 02/21/2025 Mammogram 10/18/2026 10/18/2024 [...] Diagnosis Comments CBC WITH AUTO DIFFERENTIAL Routine 04/23/2025 7:19 PM EST HIGH SENSITIVITY TROPONIN I Routine 04/23/2025 7:19 PM EST HCG, TOTAL, QN Routine 04/23/2025 7:19 PM EST MAGNESIUM Routine 04/23/2025 7:19 PM EST LIPASE Routine 04/23/2025 7:19 PM EST COMPREHENSIVE METABOLIC PANEL Routine 04/23/2025 7:19 PM EST GLUCOSE, WHOLE BLOOD Routine 04/23/2025 7:05 PM EST HEMOGLOBIN A1C Routine 02/21/2025 10:37 AM EDT Prediabetes BASIC METABOLIC PANEL Routine 02/21/2025 10:37 AM EDT Prediabetes BI MAMMOGRAM SCREENING TOMOSYNTHESIS BILATERAL Routine 10/18/2024 8:55 AM EDT Encounter for screening mammogram for malignant neoplasm of breast LIPID PANEL, STANDARD Routine 08/03/2024 11:38 AM EST Prediabetes from Last 3 Months or Most Recently Relevant to Health Maintenance Results * High Sensitivity Troponin I (04/23/2025 7:19 PM EST) [facility] TROPONIN I HIGH SENSITIVITY <2.7 <3.5 - 17.0 ng/L [facility] Comment:The Small high sens itivity Troponin-I results should beused in conjunction with other diagnostic information suchas ECG, clinical observations and information, and patientsymptoms to aid in the diagnosis of ID. 04/23/2025 7:19 PM EST 04/23/2025 7:21 PM EST us Generic External Data Provider LAB BLOOD ORDERAB LES Final Result [facility] [address] [place] [phone] * (ABNORMAL) CBC auto differential (04/23/2025 7:19 PM EST) [facility] White Blood Count 13.5(H) 4.8 - 10.8 X10*3/uL [facility] Red Blood Count 4.60 4.20 - 5.50 X10*6/uL [facility] Hemoglobin 14.1 12.0 - 16.0 g/dl [facility] Hematocrit 42.0 37.0 - 47.0 % [facility] Mean Corpuscular Volume 91.3 80.0 - 98.0 fL [facility] Mean Corpuscular Hemoglobin 30.7 27.0 - 33.0 pg [facility] Mean Corpuscular HGB Conc 33.6 31.0 - 35.0 g/dl [facility] Red Cell Distribution Width 11.9 11.0 - 16.0 % [facility] Platelet Count 330 160 - 400 X10*3/uL [facility] Mean Platelet Volume 9.2(L) 9.4 - 12.3 fL [facility] Neutrophils Percent Auto 74.0(H) 45 - 73 % [facility] Imm Gran Pct Auto 1.2(H) 0.0 - 0.4 % [facility] Lymphocytes Percent Auto 19.0(L) 20 - 40 % [facility] Monocytes Percent Auto 5.0 2 - 11 % [facility] Eosinophils Percent Auto 0.4 0 - 4 % [facility] Basophils Percent Auto 0.4 0 - 2 % [facility] NRBC Pct Auto 0.0 0.0 - 0.2 /100WBC [facility] Neutrophils Absolute Auto 10.0(H) 2.0 - 8.3 x10*3/uL [facility] Imm Gran Abs Auto 0.16(H) 0.00 - 0.03 X10*3/uL [facility] Lymphocytes Absolute Auto 2.6 1.2 - 4.9 X10*3/uL [facility] Monocytes Absolute Auto 0.7 0.1 - 1.2 X10*3/uL [facility] Eosinophils Absolute Auto 0.1 0.0 - 0.4 X10*3/uL [facility] Basophils Absolute Auto 0.1 0.0 - 0.2 X10*3/uL [facility] NRBC Abs Auto 0.000 0.0 - 0.012 X10*3/uL [facility] 04/23/2025 7:19 PM EST 04/23/2025 7:21 PM EST us Generic External Data Provider LAB BLOOD ORDERAB LES Final Result [facility] [address] [place] [phone] * hCG, Total, Quantitative (04/23/2025 7:19 PM EST) HCG Quantitative <2 mIU/mL [facility] Comment:Weeks post LMP Appro ximate hCG(Last Menstrual Period) Range (mIU/ml)3 - 4 weeks 9 - 1304 - 5 weeks 75 - 2,6005 - 6 weeks 850 - 20,8006 - 7 weeks 4000 - 100,2007 - 12 weeks 11,500 - 289,67753 - 16 weeks 18,300 - 137,80194 - 29 weeks (2nd trimester) 1,400 - 53,13222 - 41 weeks (3rd trimester) 940 - 60,000The Small B- hCG assay is used for the early detection ofpregnancy; it cannot be used to diagnose any conditionunrelated to . If a B-hCG level is not supportedby the clinical evidence, results should be confirmed by analternative method (qualitative urine hCG, for example). 04/23/2025 7:19 PM EST 04/23/2025 7:21 PM EST Generic External Data Provider LAB BLOOD ORDERAB LES Final Result Performing Organization Address City/[facility]/ZIP Co de Phone Number [facility] [address] [place] [phone] * Magnesium (04/23/2025 7:19 PM EST) Magnesium 2.0 1.6 - 2.6 mg/dL [facility] 04/23/2025 7:19 PM EST 04/23/2025 7:21 PM EST Generic External Data Provider LAB BLOOD ORDERAB LES Final Result Performing Organization Address City/[facility]/ZIP Co de Phone Number [facility] [address] [place] [phone] * Lipase (04/23/2025 7:19 PM EST) Lipase 20 8 - 78 U/L [facility] 04/23/2025 7:19 PM EST 04/23/2025 7:21 PM EST us Generic External Data Provider LAB BLOOD ORDERAB LES Final Result [facility] [address] [place], [place] [phone] * (ABNORMAL) Comprehensive Metabolic Panel (04/23/2025 7:19 PM EST) Sodium 138 135 - 145 mmol/L [facility] Potassium 3.7 3.3 - 5.1 mmol/L [facility] Chloride 103 96 - 108 mmol/L [facility] Carbon Dioxide 24 22 - 29 mmol/L [facility] Anion Gap 15 12 - 20 [facility] Urea Nitrogen (BUN) 10 9 - 16 mg/dL [facility] Creatinine, Serum 0.65 0.5 - 1.4 mg/dL [facility] Creatinine Clr Calc Pharmacy 111.9 [facility] Comment:Provided height and weight: 157.48 cm,83.6 kg.eGFR (calculated from the MDRD study equation) and eCrCl(calculated from the Cockcroft-Gault equation) are based ondifferent parameters and may not yield comparable results.If eCrCl result is absurd, please check patient'sheight/weight. Estimated Glomerular Filt Rate >60 [facility] Comment:Chronic Kidney Disea se: Estimated GFR < 60 mL/min/1.80b3Ijxvyf Kidney Disease: Estimated GFR < 15 mL/min/1.73m2 Glucose 131(H) 60 - 115 mg/dL [facility] Calcium 9.9 8.4 - 10.2 mg/dL [facility] Bilirubin, Total 0.4 0.0 - 1.0 mg/dL [facility] Aspartate Amino Transferase 16 5 - 31 U/L [facility] Alanine Aminotransferase 14 0 - 31 U/L [facility] Total Protein 8.5(H) 6.5 - 8.0 g/dL [facility] Albumin Level 5.1(H) 3.5 - 5.0 g/dL [facility] Alkaline Phosphatase 74 39 - 117 U/L [facility] 04/23/2025 7:19 PM EST 04/23/2025 7:21 PM EST us Generic External Data Provider LAB BLOOD ORDERAB LES Final Result Performing Organization Address City/[facility]/ZIP Co de Phone Number [facility] [address] [place] [phone] * (ABNORMAL) Glucose, Whole Blood (04/23/2025 7:05 PM EST) Glucose, Whole Blood 139(H) 60 - 115 mg/dL [facility] Comment:METER #: [id number] 04/23/2025 7:05 PM EST 04/23/2025 7:10 PM EST us Generic External Data Provider LAB BLOOD ORDERAB LES Final Result Performing Organization Address City/[facility]/[place] Co de Phone Number [facility] [address] [place] [phone] * Hemoglobin A1c (02/21/2025 10:37 AM EDT) Hemoglobin A1c 5.6 <6.0 % [facility] Comment:Hemoglobin A1C Refer ence Range Adults: 4.8 - 6.0 % Non diabetic: < 6.0 % Goal: < 7.0 %Additional Action Suggested: > 8.0 %Note: Hemoglobin A1c results are invalid for patients with abnormal amounts of HbF. Blood transfusions may impact the HbA1c concentration in the patient sample. Estimated Average Glucose 114 mg/dL [facility] Comment:eAG = Estimated ave rage glucose which is %A1C expressed asaverage glucose, using the formula of the E6G-[id number] Glucose study (ADAG), Diabetes Care, Vol.31,#8,Dec. 2007 Blood Venous blood specimen / Unknown 02/21/2025 10:37 AM EDT 02/21/2025 11:21 AM EDT us Alex Davila MD LAB BLOOD ORDERABLES Final Resul t Performing Organization Address [facility]/[place] Co de Phone Number [facility] [address] [place] [phone] * Basic Metabolic Panel (02/21/2025 10:37 AM EDT) Sodium 141 135 - 145 mmol/L [facility] Potassium 4.5 3.3 - 5.1 mmol/L [facility] Chloride 107 96 - 108 mmol/L [facility] Carbon Dioxide 27 22 - 29 mmol/L [facility] Anion Gap 12 12 - 20 [facility] Urea Nitrogen (BUN) 11 9 - 16 mg/dL [facility] Creatinine, Serum 0.65 0.5 - 1.4 mg/dL [facility] Estimated Glomerular Filt Rate >60 [facility] Comment:Chronic Kidney Disea se: Estimated GFR < 60 mL/min/1.47b5Rtdopp Kidney Disease: Estimated GFR < 15 mL/min/1.73m2 Glucose 110 60 - 115 mg/dL [facility] Calcium 9.4 8.4 - 10.2 mg/dL [facility] Blood Venous blood specimen / Unknown 02/21/2025 10:37 AM EDT 02/21/2025 1:50 PM EDT us Alex Davila MD LAB BLOOD ORDERABLES Final Resul t Performing Organization Address City/[facility]/ZIP Co de Phone Number [facility] [address] [place] [phone] * BI Mammogram Screening Tomosynthesis Bilateral (10/18/2024 8:55 AM EDT) Anatomical Region Laterality Modality Breast Bilateral Mammography 10/18/2024 8:55 AM EDT Narrative 10/25/2024 5:10 PM EDT [address] [place] [address] Mammography Report Signed Patient: Hermelindo Lebron MR#: [id number] : 1980 Acct:[id number] Age/Sex: 44 / F ADM Date: 10/18/24 Loc: HO.MAMMO Attending Dr: Alex Davila MD Ordering Physician: Alex Davila MD Results: 1Negative Date of Service: 10/18/24 Follow Up: 1 Year From Orig inal Mammogram Procedure(s): MM tomosynthesis screening BI Accession Number(s): [id number] cc: Alex Davila MD EXAMINATION: MM SCREENING [...] signed by Debbi Francis DO in OV> 10/25/24 1707 DD/ 0855 TD/TT: 10/18/24 0917 Ship Officer: Procedure Note Donotuseinterpreter, Image - 10/25/[address] [place] [address] Mammography Report Signed Patient: Marina LebronR#: Henna [id number] : 1980Acct:[id number] Age/Sex: 44 / FADM Date: 10/18/24 Loc: HO.MAMMO Attending Dr: Alex Davila MD Ordering Physician: Alex Davilaults: 1Negative Date of Service: 10/18/24Follow Up: 1 Year From Orig ina Mammogram Procedure(s): MM tomosynthesis screening BI Accession Number(s): [id number] cc: Alex Davila MD EXAMINATION: MM SCREENING [...] signed by Debbi Francis DO in OV> 10/25/24 1707 DD/ 0855 TD/TT: 10/18/24 0917 Ship Officer: Alex Davila MD IM BI PROCEDURES Final Result * (ABNORMAL) Lipid Panel, Standard (08/03/2024 11:38 AM EST) Triglycerides 299(H) <150 mg/dL [facility] Comment:Desirable Triglyceri de: less than 150 mg/dLBorderline High Triglyceride 150-199 mg/dLHigh Triglyceride: 200-499 mg/dLVery High Triglyceride: greater than or equal to 5OO mg/dL Cholesterol 178 <200 mg/dL [facility] Comment:Desirable Cholestero l: less than 200 mg/dLBorderline High Cholesterol: 200-239 mg/dLHigh Cholesterol: greater than 239 mg/dL LDL Cholesterol Calculated 77 <100 mg/dL [facility] Comment:Desirable LDL: less than 100 mg/dLNear Optimal/Above Optimal LDL: 110- 129 mg/dLBorderline High LDL: 130-159 mg/dLHigh LDL: 160-189 mg/dLVery High LDL: greater than or equal to 190 mg/dL HDL Cholesterol 42 >40 mg/dL [facility] Comment:Desirable HDL: great er than 40 mg/dL Note: This HDL assay may give artificially low results in patients with liver disease. Blood Venous blood specimen / Unknown 08/03/2024 11:38 AM EST 08/03/2024 1:31 PM EST us Alex Davila MD LAB BLOOD ORDERABLES Final Resul t Performing Organization Address City/State/[place] Co de Phone Number [facility] [address] [place] [phone] from Last 3 Months or Most Recently Relevant to Health Maintenance Insurance [facility] Care Teams Tool Chaser Relationship Specialty Start Date End Date Name, MD Alex [address] [place] [phone] PCP - General Internal Medicine 08/03/24
[2025-04-23] MEDS: levETIRAcetam in NaCl (iso-os) 1,000 MG/100 ML PIGGYBACK 400 MG IV (20:47)
--- NOTE | 2025-04-23 21:30 | ED_ITS ---
HPI - General Adult General Chief complaint: Seizure Stated complaint: seizure, confused per ems Time Seen by Provider: 04/23/25 20:09 Source: patient Limitations: no limitations History of Present Illness ED Provider: Chely Delgado PA-C HPI narrative: 45-year-old female with a history of obesity, diet-controlled diabetes, hypertension, seizure disorder on Keppra who presents after breakthrough seizure. Seizure was witnessed by family member, she was sitting down eating at the time of the seizure. There was no associated fall. The patient did bite her tongue during the episode, she does not know if she was incontinent of urine. When EMS arrived, the patient was confused during her postictal phase. The patient admits to nonadherence with taking the Keppra, she states she has missed several doses over the past 2-3 days, because she was drinking alcohol . Patient states there have been no medication changes, she takes 500 milligrams of Keppra twice a day. Related Data Previous Rx's ?Medication ?Instructions ?Recorded levetiracetam 500 mg tablet 500 mg PO BID #180 tabs nitrofurantoin 100 mg PO Q12H #6 caps 01/13 monohydrate/macrocrystals 100 mg capsule guaifenesin 200 mg/5 mL oral liquid 200 mg (5 mL) PO Q 4H PRN cough 06/17/24 #118 mL levetiracetam 500 mg tablet 500 mg PO BID #180 tabs (Keppra) Allergies Allergy/AdvReac Type Severity Reaction Status Date / Time No Known Allergies (No Known Allergy Verified 04/23/25 18:24 Allergies*) Review of Systems 2 Review of Systems: Yes all other systems are reviewed and are negative Constitutional: Constitutional: Denies fatigue, Denies fever(s) and Denies headache(s) ENT: Denies dizziness and Denies headache(s) Cardiovascular: Cardiovascular: Denies chest pain and Denies dyspnea Respiratory: Respiratory: Denies dyspnea Gastrointestinal: Gastrointestinal: Denies abdominal pain, Denies nausea and Denies vomiting Neurologic: Denies dizziness, Denies headache(s) and Reports seizure-like activity Endocrine: Endocrine: Denies fatigue PMFSH Past Medical History Attestation statement: The following information was validated with the patient. Medical History Diet-controlled type 2 diabetes mellitus HTN (hypertension) Social History Social History Household Members: Family Housing: House Alcohol intake: never Patient Tobacco Use Status: Current someday Tobacco user Tobacco use type: Cigarette Smoked in Last 30 Days: Yes Use of substances other than those prescribed or required for medical reasons: Yes Substance Use Type: Marijuana Advance Directives: No Advance Directives Information Provided: No Patient : No Physical Exam ED Vital Signs: Vital Signs - 24 hr 04/23/25 18:18 04/23/25 19:04 04/23/25 21:33 Temperature 98.4 F 98.6 F 98.3 F Pulse Rate 105 H 94 92 Respiratory Rate 18 15 12 Blood Pressure 111/63 121/73 112/68 Pulse Oximetry 96 99 96 Oxygen Delivery Method Room Air Room Air Room Air BMI result Body Mass Index 33.7 Const Other: Alert, appears older than stated age Orientation/consciousness: patient oriented x3 HENMT Other: puncture wounds bilateral lateral tongue, no longer bleeding Resp Effort & Inspection: normal respiratory effort Cardio Other: normal peripheral perfusion Skin Other: warm dry no rash Neuro General: patient oriented x3, gait normal, no focal motor deficits and CN's II- XI intact bilaterally Psych Other: cooperative Medications Administered Discontinued Medications Generic Name Dose Route Start Last Admin Trade Name Freq PRN Reason Stop Dose Admin Levetiracetam 1,000 mg in 100 mls @ 400 mls/hr 04/23/25 20:37 04/23/25 21:06 Keppra IV 04/23/25 20:51 Infused ONCE ONE Infusion Medical Decision Making Medical Decision Making MDM Narrative: 45-year-old female with a history of obesity, diet-controlled diabetes, hypertension, seizure disorder on Keppra who presents after breakthrough seizure. Seizure was witnessed by family member, she was sitting down eating at the time of the seizure. There was no associated fall. The patient did bite her tongue during the episode, she does not know if she was incontinent of urine. When EMS arrived, the patient was confused during her postictal phase. The patient admits to nonadherence with taking the Keppra, she states she has missed several doses over the past 2-3 days, because she was drinking alcohol . Patient states there have been no medication changes, she takes 500 milligrams of Keppra twice a day. problem: Seizure disorder History: Per patient I have considered the following differential diagnoses: Breakthrough seizure, nonadherence with medication, alcohol withdrawal seizure, alcohol intoxication, Plan: Patient admits to nonadherence with a her medications, hence she had a breakthrough seizure. We will add on a Keppra level, it will not result overnight, she will have to follow up with primary care for results. In the meantime we will load her with a dose of Keppra. A screening labs completed from triage, adding on an ethanol level. the patient does not have an alcohol use disorder history, no prior alcohol withdrawal seizures, she does have epilepsy, her consumption of alcohol likely contributed to the precipitation of this breakthrough seizure. I have independently reviewed the following tests: Labs: Slight leukocytosis, not anemic, no electrolyte abnormality, Keppra level pending, ethanol pending Differential Diagnosis Differential Diagnoses: The differential diagnosis associated with the presentation includes see [facility] Admission/Observation Consideration of admission/observation: Escalation of care including admission/observation considered not applicable Lab Data [facility] Lab Attestation statement: I reviewed the patient's lab results. 04/23/25 19:19 04/23/25 19:19 Labs: Lab Results 04/23/25 04/23/25 Range/Units 19:05 19:19 WBC 13.5 H (4.8-10.8) X10*3/uL RBC 4.60 (4.20-5.50) X10*6/uL Hgb 14.1 (12.0-16.0) g/dl Hct 42.0 (37.0-47.0) % MCV 91.3 (80.0-98.0) fL MCH 30.7 (27.0-33.0) pg MCHC 33.6 (31.0-35.0) g/dl RDW 11.9 (11.0-16.0) % Plt Count 330 D (160-400) X10*3/uL MPV 9.2 L (9.4-12.3) fL Immature Gran % (Auto) 1.2 H (0.0-0.4) % Neut % (Auto) 74.0 H (45-73) % Lymph % (Auto) 19.0 L (20-40) % [place] % (Auto) 5.0 (2-11) % Eos % (Auto) 0.4 (0-4) % Baso % (Auto) 0.4 (0-2) % Lymph # (Auto) 2.6 (1.2-4.9) X10*3/uL [place] # (Auto) 0.7 (0.1-1.2) X10*3/uL Eos # (Auto) 0.1 (0.0-0.4) X10*3/uL Baso # (Auto) 0.1 (0.0-0.2) X10*3/uL Abs Immat Gran (auto) 0.16 H (0.00-0.03) X10*3/uL Absolute Neuts (auto) 10.0 H (2.0-8.3) x10*3/uL Absolute Nucleated RBC 0.000 (0.0-0.012) X10*3/uL Nucleated RBC % (auto) 0.0 (0.0-0.2) /100WBC Sodium 138 (135-145) mmol/L Potassium 3.7 (3.3-5.1) mmol/L Chloride 103 (96-108) mmol/L Carbon Dioxide 24 (22-29) mmol/L Anion Gap 15 (12-20) BUN 10 (9-16) mg/dL Creatinine 0.65 (0.5-1.4) mg/dL Estim Creat Clear Calc 111.9 Estimated GFR > 60 POC Glucose 139 H (60-115) mg/dL Random Glucose 131 H (60-115) mg/dL Calcium 9.9 (8.4-10.2) mg/dL Magnesium 2.0 (1.6-2.6) mg/dL Total Bilirubin 0.4 (0.0-1.0) mg/dL AST 16 (5-31) U/L ALT 14 (0-31) U/L Alkaline Phosphatase 74 (39-117) U/L Troponin I High Sens < 2.7 (<3.5-17.0) ng/L Total Protein 8.5 H (6.5-8.0) g/dL Albumin 5.1 H (3.5-5.0) g/dL Lipase 20 (8-78) U/L Beta HCG, Quant < 2 mIU/mL Discharge Plan Discharge Clinical Impression: Epileptic seizure Patient Disposition: Home, Self-Care Instructions: Epilepsy (ED) Additional Instructions: you had a loading dose of Keppra, given you have missed several doses of your medication over the past few days. It is important that you take your medication as directed. The consumption of alcohol can lower your threshold to have a seizure, you should not drink alcohol. A Keppra level is pending, it will not result overnight. You need to follow up with primary care for lab results, you may require medication adjustment. Call tomorrow to schedule an appointment. Prescriptions: No Action guaifenesin 200 mg/5 mL liquid 200 mg PO Q4H PRN (Reason: cough) Qty: 118 0RF levetiracetam 500 mg Tablet 500 mg PO BID Qty: 180 0RF nitrofurantoin monohyd/m-cryst 100 mg Capsule 100 mg PO Q12H Qty: 6 0RF levetiracetam [Keppra] 500 mg tablet 500 mg PO BID Qty: 180 3RF Print Language: Luxembourger
[2025-04-23 21:33] VITALS: BP 112/68; PULSE 92; RESP 12; TEMP 36.8; O2SAT 96
[2025-04-23 22:19] VITALS: BP 112/68; PULSE 92; RESP 12; TEMP 36.8; O2SAT 96
[2025-04-26 11:34] LABS: Levetiracetam Keppra 43.6 mcg/mL (10.0-40.0)
== END 2025-04-23 22:23 | disposition home or self-care (01) ==
PROVIDERS: Physician Assistant Medical; Emergency Provider Emergency Medicine; PCP Internal Medicine Geriatric Medicine
DX: G40.909 Epilepsy, unspecified, not intractable, without status epilepticus (principal); E11.9 Type 2 diabetes mellitus without complications; I10 Essential (primary) hypertension; Z79.899 Other long term (current) drug therapy
CPT/HCPCS: 36415; 80053; 80177; 80307; 82947; 83690; 83735; 84484; 84702; 85025; 93005; 96365; 99284; 99285; J1953

== ENCOUNTER → 2025-04-23 19:01 | Outpatient (BNV) | payer MEDICAID, SELFPAY | PROVIDERS: Emergency Provider Emergency Medicine; PCP Internal Medicine Geriatric Medicine; Visit Provider Internal Medicine Cardiovascular Disease | DX: R56.9 Unspecified convulsions (principal) | CPT/HCPCS: 93010 ==